=== PATIENT | female | born 1960 | race Caucasian/White ===

== ENCOUNTER → 2017-12-12 | Day surgery (SDC) | payer OTHER ==
[2017-11-11 14:14] VITALS: BMI 26.0
[~2017-12-12] VITALS: Ht 165.1 cm; Wt 71.8 kg
[~2017-12-12] MED LIST: ADVIN25/60 INH; BACL10TA PO; BUPRTAB51 PO; CALC500C70 PO; CHOL1CAP57 PO; CHOL1CAP95 PO; CYCL0.052 OP; DICY20TA10 PO; FENT100D10 TOP; FENT75DI2 TOP; FLUT0.15 NAE; FURO-85 PO; LACTATED RINGER'S 1000ML 1,000 ML IV SCH; LATA0.009 OPB; MORP30TA PO; ONDA4TAB46 PO; POLY335019 PO; PRED-301 PO; TPRSR/50 PO; VNTHFA/IN INH
[2017-12-12 09:20] VITALS: BP 155/91; PULSE 90; TEMP 36.8; O2SAT 91; Ht 165.1 cm; Wt 71.8 kg
--- NOTE | 2017-12-12 15:24 | Progress Note ---
Progress Note Date of Service Dec 12, 2017. Progress Note Patient was scheduled today for neck MRI under sedation. Patient was evaluated by anesthesia in [facility]. Of note, the patient has severe RA with deformity of her neck and spine. At rest the patient is severely kyphotic with her chin touching her chest. She is unable to lay flat or lift her head more than an inch or two off her chest. When she does lift her head slightly she reports difficulty breathing and a choking sensation in her neck. Due to how severe that patients spinal deformity is, the patient is extremely high risk for anesthesia. In the event of an airway emergency, we would probably be unable to intubate this patient and we would probably have significant difficulty ventilating the patient if she were to become over sedated. In addition, the patient cannot be positioned in a way that will allow her to enter the MRI scanner, even with sedation. Therefore, we had to cancel the patient's case. I spoke to Dr. Russo and shared this information with him. If the patient still requires MRI, she will likely need to go to [facility] where an MRI compatible anesthesia machine and possibly an open MRI are available. Brandy Guerrero MD, PhD Anesthesiology
== END | disposition home or self-care (01) ==
LOC: C.ACU 08:59
PROVIDERS: ATTEND Internal Medicine
DX: M50.30 Other cervical disc degeneration, unspecified cervical region (principal); Z53.09 Procedure and treatment not carried out because of other contraindication; M05.79 Rheumatoid arthritis with rheumatoid factor of multiple sites without organ or systems involvement

== ENCOUNTER 2020-10-07 04:40 | Inpatient (IN) ==
--- NOTE | 2020-10-07 07:56 | History & Physical Report ---
Date of Service October 07, 2020 Assessment & Plan (1) Abdominal pain: (2) Nausea: (3) Ileus: (4) Small bowel obstruction: Patient presents with abdominal pain, nausea, and CT findings concerning for Gastric and duodenal ileus versus small bowel obstruction at the duodenojejunal junction. ( No free air, free fluid, or fluid collection) CD from outside hospital received and images will be uploaded Patient declined NG tube at the outside hospital, reports she has had issues before with NG tube We will make sure her electrolytes are within normal limits, she was hypokalemic and hypomagnesemic at outside hospital We will repeat labs now and replete electrolytes as needed Currently patient does have bowel sounds, will closely monitor for BM N.p.o., IV fluids General surgery consult Will obtain UA (5) Chronic pain: (6) Rheumatoid arthritis: -Continue home prednisone, fentanyl patch and morphine prn for pain control - Discussed with pharmacy, fentanyl patch available is Alvagen, which is not the brand name, will try it and will closely monitor (7) COPD (chronic obstructive pulmonary disease): -Continue home inhalers, currently no exacerbation HTN - cont. metoprolol Anxiety home hydroxyzine as needed DVT ppx SCDs Code status : Discussed, patient is DNR/DNI Admission and Anticipated Discharge Date Admission Date: October 07, 2020 History of Present Illness Chief Complaint: Presents as a direct admission / transfer from [facility], with nausea, abdominal pain, likely ileus versus small bowel obstruction Primary Care Provider: Torrie Araya MD Patient is a 60-year-old female, with history of COPD, hypertension, IBS, cervical spondylosis, idiopathic scoliosis, chronic pain syndrome, rheumatoid arthritis, for which she uses fentanyl and morphine, generalized anxiety disorder, who presents as direct admission/transfer from [facility], with nausea, abdominal pain, and likely ileus versus small bowel obstruction per CT scan. Patient reports presenting to [facility] with abdominal pain and nausea, CT scan obtained in [facility] ED concerning for Gastric and duodenal ileus versus small bowel obstruction at the duodenojejunal junction. No free air, free fluid, or fluid collection. Labs remarkable for low potassium and low magnesium. Patient follows with [facility] physicians, and therefore wanted to be transferred to [facility] and be in care of the [facility] hospitalist. She reports that her symptoms started after she used fentanyl patch that was generic. She reports that it happened to her before and she also developed abdominal pain and nausea when her pharmacy did not have a brand name fentanyl. Patient is currently on 200 mcg every 48 hours and morphine 30 mg as needed every 4 hours. She says that she has been weaning off as she used higher fentanyl patch dose before. Her chronic pain medications are being managed by her educational director/PCP. Patient does have chronic back pain and neck pain. She reports that for cervical spondylosis she follows with Dr. Barnhart/neurology. And she follows w/Dr. Lawson from rheumatology for her RA. Reports that she usually sleeps in a reclining chair, and she has difficulty lying flat, which exacerbates her pain. She reports she had a normal bowel movement on , then she had diarrhea on Friday. She has now discomfort at her right lower abdomen and some discomfort at her right upper abdomen as well. She refused NG tube at [facility], she reports that in the past she had troubles with NG tube. She otherwise denies any fevers, chills, chest pain, shortness of breath. No known sick contacts. Allergies Allergy/AdvReac Type Severity Reaction Status Date / Time No Known Allergies Allergy Unknown Verified 09/14/20 11:09 Home Medications Medication Instructions Recorded Confirmed Type albuterol sulfate [Ventolin HFA] 2 puff INHALATION Q6 PRN 06/11/18 09/14/20 History baclofen 10 mg PO TID PRN 06/11/18 09/14/20 History calcium carbonate-vitamin D3 1 tab PO QAM 06/11/18 09/14/20 History [Os-Porfirio 500 + D3] cholecalciferol (vitamin D3) 50,000 unit PO WK 06/11/18 09/14/20 History dicyclomine 20 mg PO QID PRN 06/11/18 09/14/20 History fentanyl 2 patch TRANSDERMAL Q48H 06/11/18 09/14/20 History fluticasone propion-salmeterol 1 inh INHALATION BID 06/11/18 09/14/20 History [Advair Diskus] fluticasone propionate [Flonase 1 - 2 spray INTRANASAL DAILY PRN 06/11/18 09/14/20 History Allergy Relief] furosemide 20 mg PO DAILY PRN 06/11/18 09/14/20 History latanoprost 1 drp OPHTHALMIC (EYE) HS 06/11/18 09/14/20 History metoprolol succinate 25 mg PO HS 06/11/18 09/14/20 History metoprolol succinate 50 mg PO QAM 06/11/18 09/14/20 History morphine 30 mg PO Q3H PRN 06/11/18 09/14/20 History ondansetron 4 mg PO Q6 PRN 06/11/18 09/14/20 History polyethylene glycol 3350 [Miralax] 1 dose PO QAM PRN 06/11/18 09/14/20 History prednisone 10 mg PO HS 06/11/18 09/14/20 History tiotropium bromide [Spiriva with 1 cap INHALATION QAM 06/11/18 09/14/20 History HandiHaler] cyanocobalamin (vitamin B-12) 1,000 mcg PO QAM 09/14/20 09/14/20 History [Vitamin B-12] hydroxyzine HCl 25 mg PO Q6H PRN 10/07/20 10/07/20 History Past Med/Surg History Medical History Anxiety Chronic neck and back pain Chronic obstructive pulmonary disease Current every day smoker Glaucoma bilt eyes History of anesthesia reaction Difficulty waking up. 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 and forth Surgical History History of ankle surgery L ankle triple fusion (pins in place) d/t RA History of bilateral tubal ligation History of cholecystectomy History of colonoscopy History of dilatation and curettage History of esophagogastroduodenoscopy (EGD) History of partial hysterectomy History of total left knee replacement (TKR) History of total right knee replacement (TKR) Hx of toe surgery "all ten toes were straightened" Status post cystoscopy with ureteral stent placement Status post wrist surgery bilt fusion (R wrist has plate in place) d/t RA Family History Father Family hx of colon cancer Family history of reaction to anesthesia slow to wake Social History Smoking Status: Current every day smoker Cigarettes Per Day: vaps daily; Second Hand Exposure: No; Hx Alcohol Use: No Hx Substance Use: No Preferred Language: Indian Communication Ability: Effective Orthopedic Physician Required: No Beliefs That Will Affect Care: Orthodoxy Orthodoxy Beliefs: Religion Current Living Situation: Alone Current Living Situation Comment: Lives alone; has caregiver everyday Feels Safe at Home: Yes Assistive Devices: Cane and Walker Review of Systems Review of Systems: All systems reviewed & are unremarkable except as noted in HPI & below Constitutional: no fever and no chills Eyes: no problem reported Ear, Nose, Mouth, Throat: no problem reported Respiratory: no cough and no dyspnea Cardiovascular: no chest pain, no palpitations and no edema Gastrointestinal: + abdominal pain (R lower and upper quadrants) and + nausea; no vomiting Genitourinary: no problem reported Musculoskeletal: + back pain (chronic) and + neck pain (chronic) Integumentary: no problem reported Neurologic: no problem reported Psychiatric: no problem reported Endocrine: no problem reported Hematologic / Lymphatic: no problem reported Allergy / Immunological: no problem reported Physical Exam Constitutional: WD/WN, vitals as above Eyes: PERRL, conjunctivae normal, anicteric sclerae ENMT: external ear and nose normal, oropharynx normal Neck: normal visual inspection Respiratory: normal respiratory effort, lungs clear to auscultation Auscultation: no crackles, no rales and no rhonchi Cardiovascular: RRR, no murmur, no edema Chest (Breasts): Chest: normal inspection of chest Gastrointestinal (Abdomen): Inspection/Auscultation: abdomen normal to inspection and normal bowel sounds; abdomen not distended and no abdominal edema Percussion/Palpation: + abdomen tender (at R upper and lower quadrants) and abdomen soft Musculoskeletal: Head/Neck/Chest: normocephalic and head atraumatic Spine: + scoliosis + Hands deformity from RA bilaterally + moves extremities spontaneously Skin: no rashes, warm and dry Neurologic: PERRL, EOMI, accommodation nl, no face palsy, no dysarthria moves all extremities Psychiatric: A+Ox3, euthymic affect Genitourinary: no CVA tenderness Lymphatic: no lymphedema Results & Data Results & Data ([facility]) Vital Signs (Past 12 Hours) Vital Signs Temp Pulse Resp BP Pulse Ox 10/07/20 07:33 36.8 C 81 18 108/70 97 Laboratory Results Per labs from [facility], sodium 140, potassium 3.0, chloride 107, bicarb 24, anion gap 12, alk phos 58, AST 10, ALT 10, lactic acid 1.3, lipase 150 Magnesium 1.8 Troponin negative White blood cell count 8.4, hemoglobin 13.3, platelets 290 EKG Normal sinus rhythm, ventricular rate [address] abdomen pelvis with IV contrast ([facility]) Findings No free air. No solid liver mass. Cholecystectomy. No clinically significant very ductal dilatation. No splenomegaly or suspicious splenic lesions. No solid or cystic pancreatic mass. No pancreatic ductal dilation. No acute inflammatory changes. Adrenal glands without acute pathology. No solid renal mass. No hydronephrosis. No significant stranding. Bladder without acute pathology. Gastric and duodenal distention with fluid levels, with the duodenum measuring up to 4.5 cm in diameter. Jejunum and remainder of small bowel normal in caliber. No evidence of acute appendicitis. No adenopathy. As erythematous abdominal aortic calcifications without aneurysm. No suspicious pelvic masses. Hysterectomy. No acute soft tissue pathology. No acute osseous pathology. Degenerative changes. Impression Gastric and duodenal ileus versus small bowel obstruction at the duodenojejunal junction. No free air, free fluid, or fluid collection. Code Status & VTE Plan VTE Prophylaxis Plan VTE Prophylaxis will be ordered: Yes
[2020-10-07] MEDS ORDERED: hydrOXYzine HCl 25 MG TAB PO PRN (07:59)
[2020-10-07] MEDS ORDERED: DICYCLOMINE HCL 20 MG TAB PO PRN (07:59)
[2020-10-07] MEDS ORDERED: ONDANSETRON INJ 2 MG/ML 2 ML VIAL IV PRN (07:59)
[2020-10-07] MEDS ORDERED: POLYETHYLENE (MIRALAX) 17 GM PACK PO PRN (07:59)
[2020-10-07] MEDS ORDERED: ALBUTEROL HFA 8 GM INHALER INH PRN (07:59)
[2020-10-07] MEDS ORDERED: FLUTICASONE PROPIONATE NA SPR 16 GM BTL PRN (07:59)
[2020-10-07 08:22] LABS: Alanine Aminotransferase 10 U/L (12-78); Albumin Level 2.9 gm/dl (3.4-5.0); Aspartate Aminotransferase 9 U/L (15-37); BUN Creatinine Ratio 8.1 (10-20); Blood Urea Nitrogen 4 mg/dl (7-18); Calcium 8.3 mg/dl (8.5-10.1); Carbon Dioxide 21 mmol/L (21-32); Chloride 115 mmol/L (98-107); Est GFR (Non-African American) 111.3; Glucose 88 mg/dl (70-99); Magnesium 1.8 mg/dl (1.8-2.4); Potassium 3.9 mmol/L (3.5-5.1); Sodium 142 mmol/L (136-145)
[2020-10-07 08:25] LABS: Albumin Globulin Ratio 0.9 (0.9-2); Alkaline Phosphatase 51 U/L (45-117); Bilirubin,Total 0.9 mg/dl (0.2-1); Globulin 3.2 gm/dl (2.5-4.0); Total Protein 6.1 gm/dl (6.4-8.2)
[2020-10-07 08:38] LABS: INR 1.1 (0.9-1.1); Prothrombin Time 11.1 Seconds (9.0-12.0)
[2020-10-07 08:41] LABS: Basophils # (auto) 0.01 K/uL (0-0.2); Basophils % (auto) 0.1 %; Eosinophils # (auto) 0.01 K/uL (0-0.5); Eosinophils % (auto) 0.1 %; Hematocrit (blood only) 35.9 % (37-47); Hemoglobin 11.6 g/dL (12.0-16.0); Immature Granulocytes # (auto) 0.01 K/uL (0.00-0.02); Immature Granulocytes % (auto) 0.1 %; Lymphocytes % (auto) 21.7 %; Mean Corpuscular Hemoglobin 30.1 pg (25-34); Mean Corpuscular Hgb Conc 32.3 g/dL (32-36); Mean Platelet Volume 9.2 fL (7.4-10.4); Monocytes # (auto) 0.19 K/uL (0.11-0.59); Monocytes % (auto) 2.4 %; Neutrophils # (auto) 5.92 K/uL (1.4-6.5); Neutrophils % (auto) 75.6 %; Platelet Count 267 K/uL (130-400); RDW Coefficient of Variation 13.1 % (11.5-14.5); RDW Standard Deviation 44.8 fL (36.4-46.3); Red Blood Count 3.86 M/uL (4.2-5.4); White Blood Count 7.84 K/uL (4.8-10.8)
[2020-10-07] MEDS: fentaNYL 100 MCG/HR TDSY TD SCH ×2 (08:51→09:04)
[2020-10-07] MEDS: D5W AND NSS 1,000 ML IV SCH ×2 (08:51→17:57)
[2020-10-07] MEDS: CHECK fentaNYL PATCH PLACEMENT SCH ×3 (09:07→16:22)
[2020-10-07] MEDS: HYDROmorphone INJ 0.5 MG/0.5 ML SYR IV PRN (09:12)
[2020-10-07] MEDS: MoRPHine SULFATE IR 15 MG TAB (IMMEDIATE RELEASE) PO PRN ×4 (09:22→21:54)
[2020-10-07] MEDS ORDERED: MAGNESIUM SULFATE / D5W 1 GM/100 ML BAG IV ONE (09:30)
[2020-10-07 10:10] LABS: Appearance Urine Clear (Clear); Bilirubin Urine Negative (Negative); Blood Urine Negative (Negative); Color Urine Yellow; Glucose Urine UA Negative (Negative); Ketones Urine Negative (Negative); Leukocyte Esterase Urine Negative (Negative); Nitrite Urine Negative (Negative); Protein Urine Negative (Negative); Specific Gravity Urine 1.035 (1.000-1.030); Urobilinogen Urine Negative (Negative)
--- NOTE | 2020-10-07 10:57 | Surgery Consultation ---
Date of Consultation October 07, 2020 Assessment & Plan (1) Ileus: 60-year-old female with resolving nausea and abdominal bloating and distention. She believes this is related to her fentanyl patch, however there is concern for possible SMA syndrome on her imaging study. As this would not be an acute problem and she may very well just have an ileus or gastritis, we will advance her to clear liquids. If she tolerates those she may advance to regular diet and be discharged home. We would recommend outpatient evaluation by gastroenterology or a tertiary center for surgical care regarding her potential SMA syndrome. Surgery will follow while in house. (2) Abdominal pain: (3) Nausea: History of Present Illness Attending Physician: Laz Acosta MD History of Present Illness 60-year-old female transferred from [place] ER over concerns for gastroduodenal ileus versus obstruction. She states she had a similar episode in the past when she used generic fentanyl patch. Yesterday at the pharmacy they did not have her normal fentanyl patch, and after placing it she began having dry heaves along with abdominal bloating and discomfort. She remove the patch and went to the [place] emergency department where they did a CT scan over concern for ileus versus obstruction near the duodenal jejunal junction. As she gets her care through [facility] she preferred to come to [facility] where there were [facility] hospitalist available. Since arrival she is feeling much better, passing gas, not having abdominal pain, distention, or nausea or d ry heaves. History of laparoscopic cholecystectomy and hysterectomy in the past. Allergies Allergy/AdvReac Type Severity Reaction Status Date / Time No Known Allergies Allergy Unknown Verified 09/14/20 11:09 Home Medications Medication Instructions Recorded Confirmed Type albuterol sulfate [Ventolin HFA] 2 puff INHALATION Q6 PRN 06/11/18 09/14/20 History baclofen 10 mg PO TID PRN 06/11/18 09/14/20 History calcium carbonate-vitamin D3 1 tab PO QAM 06/11/18 09/14/20 History [Os-Porfirio 500 + D3] cholecalciferol (vitamin D3) 50,000 unit PO WK 06/11/18 09/14/20 History dicyclomine 20 mg PO QID PRN 06/11/18 09/14/20 History fentanyl 2 patch TRANSDERMAL Q48H 06/11/18 09/14/20 History fluticasone propion-salmeterol 1 inh INHALATION BID 06/11/18 09/14/20 History [Advair Diskus] fluticasone propionate [Flonase 1 - 2 spray INTRANASAL DAILY PRN 06/11/18 09/14/20 History Allergy Relief] furosemide 20 mg PO DAILY PRN 06/11/18 09/14/20 History latanoprost 1 drp OPHTHALMIC (EYE) HS 06/11/18 09/14/20 History metoprolol succinate 25 mg PO HS 06/11/18 09/14/20 History metoprolol succinate 50 mg PO QAM 06/11/18 09/14/20 History morphine 30 mg PO Q3H PRN 06/11/18 09/14/20 History ondansetron 4 mg PO Q6 PRN 06/11/18 09/14/20 History polyethylene glycol 3350 [Miralax] 1 dose PO QAM PRN 06/11/18 09/14/20 History prednisone 10 mg PO HS 06/11/18 09/14/20 History tiotropium bromide [Spiriva with 1 cap INHALATION QAM 06/11/18 09/14/20 History HandiHaler] cyanocobalamin (vitamin B-12) 1,000 mcg PO QAM 09/14/20 09/14/20 History [Vitamin B-12] hydroxyzine HCl 25 mg PO Q6H PRN 10/07/20 10/07/20 History Patient History Medical History (Updated 10/07/20 @ 08:33 by Alvin Brothers MD) Anxiety Chronic neck and back pain Chronic obstructive pulmonary disease Chronic pain COPD (chronic obstructive pulmonary disease) Current every day smoker Glaucoma bilt eyes History of anesthesia reaction Difficulty waking up. 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 forth Surgical History History of ankle surgery L ankle triple fusion (pins in place) d/t RA History of bilateral tubal ligation History of cholecystectomy History of colonoscopy History of dilatation and curettage History of esophagogastroduodenoscopy (EGD) History of partial hysterectomy History of total left knee replacement (TKR) History of total right knee replacement (TKR) Hx of toe surgery "all ten toes were straightened" Status post cystoscopy with ureteral stent placement Status post wrist surgery bilt fusion (R wrist has plate in place) d/t RA Family History Father Family hx of colon cancer Family history of reaction to anesthesia slow to wake Social History Smoking Status: Current every day smoker Cigarettes Per Day: vaps daily; Second Hand Exposure: No; Hx Alcohol Use: No Hx Substance Use: No Preferred Language: Romanian Communication Ability: Effective Photographic Artist Required: No Beliefs That Will Affect Care: Taoism Taoism Beliefs: Holiness Current Living Situation: Alone Current Living Situation Comment: Lives alone; has caregiver everyday Feels Safe at Home: Yes Assistive Devices: Cane and Walker Review of Systems Review of Systems: All systems reviewed & are unremarkable except as noted in HPI & below Physical Exam Constitutional: WD/WN, vitals as above Respiratory: normal respiratory effort, lungs clear to auscultation Cardiovascular: RRR, no murmur, no edema Gastrointestinal (Abdomen): normal bowel sounds, soft, nontender, no hepatosplenomegaly Inspection/Auscultation: abdomen not distended Results & Data ([facility]) Vital Signs (Past 12 Hours) Vital Signs Temp Pulse Resp BP Pulse Ox 10/07/20 07:33 36.8 C 81 18 108/70 97 Diagnostic Findings I personally reviewed the CT scan along with our radiologist Dr. Beltran. After review there is duodenal distention and mild gastric distention. There appears to be a possible partial obstruction in the third portion of the duodenum near the takeoff of the superior mesenteric artery, which could indicate SMA syndrome. PG Care Time/CCT Total # of Minutes Spent Total Time Spent with Patient: Total time spent is greater than 50% in coordination of care (as documented) at patient's floor/unit and/or counseling patient: Coding Level of Care Code 44005 Initial Inpt Care Lvl 2 Diagnoses Ileus K56.7 Abdominal pain R10.9 Nausea R11.0
[2020-10-07] MEDS: METOPROLOL SUCC 50MG EXT REL TAB PO SCH (12:52)
[2020-10-07] MEDS: FLUTICASONE/VILANTEROL 100/25MCG 14 PUFFS/INHALER INH SCH (12:53)
[2020-10-07] MEDS: UMECLIDINIUM BROMIDE 62.5MCG/BLISTER 7 PUFFS/INHALER INH SCH (12:53)
[2020-10-07] MEDS: predniSONE 10 MG TABLET PO SCH (21:54)
[2020-10-07] MEDS: LATANOPROST 0.005% OP SOLN 2.5 ML BTL OP SCH (21:55)
[2020-10-07] MEDS: METOPROLOL SUCC 25MG EXT REL TAB PO SCH (21:58)
[2020-10-08] MEDS: CHECK fentaNYL PATCH PLACEMENT SCH ×8 (00:49→22:58)
[2020-10-08] MEDS: D5W AND NSS 1,000 ML IV SCH (01:30)
[2020-10-08] MEDS: HYDROmorphone INJ 0.5 MG/0.5 ML SYR IV PRN ×4 (03:18→22:04)
[2020-10-08 05:55] LABS: Hematocrit (blood only) 33.7 % (37-47); Hemoglobin 10.6 g/dL (12.0-16.0); Mean Corpuscular Hemoglobin 29.9 pg (25-34); Mean Corpuscular Hgb Conc 31.5 g/dL (32-36); Mean Corpuscular Volume 95.2 fL (80-100); Mean Platelet Volume 9.3 fL (7.4-10.4); Platelet Count 229 K/uL (130-400); RDW Coefficient of Variation 13.3 % (11.5-14.5); RDW Standard Deviation 46.7 fL (36.4-46.3); Red Blood Count 3.54 M/uL (4.2-5.4); White Blood Count 3.91 K/uL (4.8-10.8)
[2020-10-08 06:29] LABS: BUN Creatinine Ratio 3.6 (10-20); Calcium 7.9 mg/dl (8.5-10.1); Creatinine Clr Calc Pharmacy 136.8 ml/min; Est GFR (Non-African American) 111.3; Magnesium 2.3 mg/dl (1.8-2.4); Phosphorus 2.9 mg/dl (2.5-4.9); Potassium 4.5 mmol/L (3.5-5.1)
[2020-10-08] MEDS: MoRPHine SULFATE IR 15 MG TAB (IMMEDIATE RELEASE) PO PRN ×4 (07:20→21:13)
--- NOTE | 2020-10-08 07:33 | Hospitalist Progress Note ---
Date of Service October 08, 2020 Assessment & Plan (1) Abdominal pain: (2) Nausea: (3) Ileus: (4) Small bowel obstruction: Patient presents with abdominal pain, nausea, and CT findings concerning for Gastric and duodenal ileus versus small bowel obstruction at the duodenojejunal junction. 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, and recommend GI follow-up as outpatient Advanced patient to clear liquid diet, which he tolerated, will advance the diet to low fiber/low residue diet She is clinically improved, and denies nausea, she is passing flatus however no BM yet (5) Chronic pain: (6) Rheumatoid arthritis: -Continue home prednisone, fentanyl patch and morphine prn for pain control - Discussed with pharmacy, fentanyl patch available is Alvagen, which is not the brand name, will try it and will closely monitor -Patient seems to be tolerating this fentanyl patch (7) COPD (chronic obstructive pulmonary disease): -Continue home inhalers, currently no exacerbation HTN - cont. 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 We will try and advance her diet to low fiber/low residue, will further discuss with surgery team Review of Systems Review of Systems: All systems reviewed & are unremarkable except as noted in HPI & below Constitutional: no fever and no chills Respiratory: no cough and no dyspnea Cardiovascular: no chest pain and no palpitations Gastrointestinal: + abdominal pain (improved); no nausea and no vomiting Musculoskeletal: + back pain (chronic) and + neck pain (chronic) Physical Exam Constitutional: WD/WN, vitals as above Eyes: PERRL, conjunctivae normal, anicteric sclerae ENMT: external ear and nose normal, oropharynx normal Neck: normal visual inspection Respiratory: normal respiratory effort, lungs clear to auscultation Auscultation: no crackles, no rales and no rhonchi Cardiovascular: RRR, no murmur, no edema Chest (Breasts): Chest: normal inspection of chest Gastrointestinal (Abdomen): Inspection/Auscultation: abdomen normal to inspection and normal bowel sounds; abdomen not distended and no abdominal edema Percussion/Palpation: + abdomen tender (at R upper and lower quadrants - improved) and abdomen soft Musculoskeletal: Head/Neck/Chest: normocephalic and head atraumatic Spine: + scoliosis Skin: no rashes, warm and dry Neurologic: PERRL, EOMI, accommodation nl, no face palsy, no dysarthria moves all extremities Psychiatric: A+Ox3, euthymic affect Genitourinary: no CVA tenderness Lymphatic: no lymphedema Results & Data Results & Data ([facility]) Vital Signs (Past 12 Hours) Vital Signs Temp Pulse Resp BP Pulse Ox 10/08/20 07:21 36.5 C 70 16 112/76 97 10/07/20 21:51 36.5 C 67 14 95/57 L 97 Laboratory Results 10/08/20 10/08/20 10/07/20 Range/Units 05:22 05:22 08:50 WBC 3.91 L (4.8-10.8) K/uL RBC 3.54 L (4.2-5.4) M/uL Hgb 10.6 L (12.0-16.0) g/dL Hct 33.7 L (37-47) % MCV 95.2 (80-100) fL MCH 29.9 (25-34) pg MCHC 31.5 L (32-36) g/dL RDW Std Deviation 46.7 H (36.4-46.3) fL RDW Coeff of Emma 13.3 (11.5-14.5) % Plt Count 229 (130-400) K/uL MPV 9.3 (7.4-10.4) fL Immature Gran % (Auto) % Neut % (Auto) % Lymph % (Auto) % [place] % (Auto) % Eos % (Auto) % Baso % (Auto) % Neut # (Auto) (1.4-6.5) K/uL Lymph # (Auto) (1.2-3.4) K/uL [place] # (Auto) (0.11-0.59) K/uL Eos # (Auto) (0-0.5) K/uL Baso # (Auto) (0-0.2) K/uL Immature Gran # (Auto) (0.00-0.02) K/uL PT (9.0-12.0) Seconds INR (0.9-1.1) APTT (21.0-31.0) Seconds PTT Ratio Sodium 146 H (136-145) mmol/L Potassium 4.5 D (3.5-5.1) mmol/L Chloride 118 H (98-107) mmol/L Carbon Dioxide 24 (21-32) mmol/L Anion Gap 4.0 (3-11) BUN 2 L (7-18) mg/dl Creatinine 0.44 L (0.6-1.2) mg/dl Est Cr Clr Drug Dosing 136.8 Est GFR ( Amer) 129.0 Est GFR (Non-Af Amer) 111.3 BUN/Creatinine Ratio 3.6 L (10-20) Glucose 147 H (70-99) mg/dl Calcium 7.9 L (8.5-10.1) mg/dl Phosphorus 2.9 (2.5-4.9) mg/dl Magnesium 2.3 (1.8-2.4) mg/dl Total Bilirubin (0.2-1) mg/dl AST (15-37) U/L ALT (12-78) U/L Alkaline Phosphatase (45-117) U/L Total Protein (6.4-8.2) gm/dl Albumin (3.4-5.0) gm/dl Globulin (2.5-4.0) gm/dl Albumin/Globulin Ratio (0.9-2) Urine Color Yellow Urine Appearance Clear (Clear) Urine pH 6.0 (4.5-7.5) Ur Specific [place] 1.035 H (1.000-1.030) Urine Protein Negative (Negative) Urine Glucose (UA) Negative (Negative) Urine Ketones Negative (Negative) Urine Blood Negative (Negative) Urine Nitrite Negative (Negative) Urine Bilirubin Negative (Negative) Urine Urobilinogen Negative (Negative) Ur Leukocyte Esterase Negative (Negative) 10/07/20 10/07/20 10/07/20 Range/Units 07:53 07:53 07:53 WBC (4.8-10.8) K/uL RBC (4.2-5.4) M/uL Hgb (12.0-16.0) g/dL Hct (37-47) % MCV (80-100) fL MCH (25-34) pg MCHC (32-36) g/dL RDW Std Deviation (36.4-46.3) fL RDW Coeff of Emma (11.5-14.5) % Plt Count (130-400) K/uL MPV (7.4-10.4) fL Immature Gran % (Auto) % Neut % (Auto) % Lymph % (Auto) % [place] % (Auto) % Eos % (Auto) % Baso % (Auto) % Neut # (Auto) (1.4-6.5) K/uL Lymph # (Auto) (1.2-3.4) K/uL [place] # (Auto) (0.11-0.59) K/uL Eos # (Auto) (0-0.5) K/uL Baso # (Auto) (0-0.2) K/uL Immature Gran # (Auto) (0.00-0.02) K/uL PT 11.1 (9.0-12.0) Seconds INR 1.1 (0.9-1.1) APTT 25.0 (21.0-31.0) Seconds PTT Ratio 1.0 Sodium 142 (136-145) mmol/L Potassium 3.9 (3.5-5.1) mmol/L Chloride 115 H (98-107) mmol/L Carbon Dioxide 21 (21-32) mmol/L Anion Gap 6.0 (3-11) BUN 4 L (7-18) mg/dl Creatinine 0.44 L (0.6-1.2) mg/dl Est Cr Clr Drug Dosing Not Reportable Est GFR ( Amer) 129.0 Est GFR (Non-Af Amer) 111.3 BUN/Creatinine Ratio 8.1 L (10-20) Glucose 88 (70-99) mg/dl Calcium 8.3 L (8.5-10.1) mg/dl Phosphorus 3.1 (2.5-4.9) mg/dl Magnesium 1.8 (1.8-2.4) mg/dl Total Bilirubin 0.9 (0.2-1) mg/dl AST 9 L (15-37) U/L ALT 10 L (12-78) U/L Alkaline Phosphatase 51 (45-117) U/L Total Protein 6.1 L (6.4-8.2) gm/dl Albumin 2.9 L (3.4-5.0) gm/dl Globulin 3.2 (2.5-4.0) gm/dl Albumin/Globulin Ratio 0.9 (0.9-2) Urine Color Urine Appearance (Clear) Urine pH (4.5-7.5) Ur Specific [place] (1.000-1.030) Urine Protein (Negative) Urine Glucose (UA) (Negative) Urine Ketones (Negative) Urine Blood (Negative) Urine Nitrite (Negative) Urine Bilirubin (Negative) Urine Urobilinogen (Negative) Ur Leukocyte Esterase (Negative) 10/07/20 Range/Units 07:53 WBC 7.84 (4.8-10.8) K/uL RBC 3.86 L (4.2-5.4) M/uL Hgb 11.6 L (12.0-16.0) g/dL Hct 35.9 L (37-47) % MCV 93.0 (80-100) fL MCH 30.1 (25-34) pg MCHC 32.3 (32-36) g/dL RDW Std Deviation 44.8 (36.4-46.3) fL RDW Coeff of Emma 13.1 (11.5-14.5) % Plt Count 267 (130-400) K/uL MPV 9.2 (7.4-10.4) fL Immature Gran % (Auto) 0.1 % Neut % (Auto) 75.6 % Lymph % (Auto) 21.7 % [place] % (Auto) 2.4 % Eos % (Auto) 0.1 % Baso % (Auto) 0.1 % Neut # (Auto) 5.92 (1.4-6.5) K/uL Lymph # (Auto) 1.70 (1.2-3.4) K/uL [place] # (Auto) 0.19 (0.11-0.59) K/uL Eos # (Auto) 0.01 (0-0.5) K/uL Baso # (Auto) 0.01 (0-0.2) K/uL Immature Gran # (Auto) 0.01 (0.00-0.02) K/uL PT (9.0-12.0) Seconds INR (0.9-1.1) APTT (21.0-31.0) Seconds PTT Ratio Sodium (136-145) mmol/L Potassium (3.5-5.1) mmol/L Chloride (98-107) mmol/L Carbon Dioxide (21-32) mmol/L Anion Gap (3-11) BUN (7-18) mg/dl Creatinine (0.6-1.2) mg/dl Est Cr Clr Drug Dosing Est GFR ( Amer) Est GFR (Non-Af Amer) BUN/Creatinine Ratio (10-20) Glucose (70-99) mg/dl Calcium (8.5-10.1) mg/dl Phosphorus (2.5-4.9) mg/dl Magnesium (1.8-2.4) mg/dl Total Bilirubin (0.2-1) mg/dl AST (15-37) U/L ALT (12-78) U/L Alkaline Phosphatase (45-117) U/L Total Protein (6.4-8.2) gm/dl Albumin (3.4-5.0) gm/dl Globulin (2.5-4.0) gm/dl Albumin/Globulin Ratio (0.9-2) Urine Color Urine Appearance (Clear) Urine pH (4.5-7.5) Ur Specific [place] (1.000-1.030) Urine Protein (Negative) Urine Glucose (UA) (Negative) Urine Ketones (Negative) Urine Blood (Negative) Urine Nitrite (Negative) Urine Bilirubin (Negative) Urine Urobilinogen (Negative) Ur Leukocyte Esterase (Negative) Medications Administered Current Inpatient Medications Albuterol (Albuterol Hfa 8 Gm Inhaler) 2 puffs INH Q6 PRN PRN Reason: Shortness Of Breath Stop: 11/06/20 07:58 Dicyclomine HCl (Dicyclomine Hcl 20 Mg Tab) 20 mg PO QID PRN PRN Reason: Abdominal Pain Stop: 11/06/20 07:58 Fentanyl (Fentanyl 100 Mcg/Hr Tdsy) 100 mcg TD Q48H [facility] Stop: 10/21/20 08:29 Last Admin: 10/07/20 08:51 Dose: 100 mcg Documented by: Fentanyl (Fentanyl 100 Mcg/Hr Tdsy) 100 mcg TD Q48H [facility] Stop: 10/21/20 08:29 Last Admin: 10/07/20 09:04 Dose: 100 mcg Documented by: Fluticasone Propionate (Fluticasone Propionate Na Spr 16 Gm Btl) 1 sprays NA DAILY PRN PRN Reason: Allergy Symptoms Stop: 11/06/20 07:58 Fluticasone/Vilanterol (Fluticasone/Vilanterol 100/25mcg 14 Puffs/Inhaler) 1 puffs INH DAILY [facility] Stop: 11/06/20 08:59 Last Admin: 10/07/20 12:53 Dose: 1 puffs Documented by: Hydromorphone HCl (Hydromorphone Inj 0.5 Mg/0.5 Ml Syr) 0.5 mg IV Q3H PRN PRN Reason: Pain Stop: 10/21/20 07:58 Last Admin: 10/08/20 03:18 Dose: 0.5 mg Documented by: Hydroxyzine HCl (Hydroxyzine Hcl 25 Mg Tab) 25 mg PO Q6H PRN PRN Reason: Anxiety Stop: 11/06/20 07:58 Dextrose/Sodium Chloride (D5w And Nss) 1,000 mls @ 125 mls/hr IV .Q8H [facility] Stop: 11/06/20 07:58 Last Admin: 10/08/20 01:30 Dose: 125 mls/hr Documented by: Latanoprost (Latanoprost 0.005% Op Soln 2.5 Ml Btl) 1 drops OP HS [facility] Stop: 11/06/20 20:59 Last Admin: 10/07/20 21:55 Dose: 1 drops Documented by: Metoprolol Succinate (Metoprolol Succ 50mg Ext Rel Tab) 50 mg PO QAM [facility] Stop: 11/06/20 08:59 Last Admin: 10/07/20 12:52 Dose: 50 mg Documented by: Metoprolol Succinate (Metoprolol Succ 25mg Ext Rel Tab) 25 mg PO HS [facility] Stop: 11/06/20 20:59 Last Admin: 10/07/20 21:58 Dose: Not Given Documented by: Nicanoraneous (Check Fentanyl Patch Placement) 1 ea N/A QS [facility] Stop: 11/06/20 07:59 Last Admin: 10/08/20 00:49 Dose: 1 ea Documented by: Nicanoraneous (Check Fentanyl Patch Placement) 1 ea N/A QS [facility] Stop: 11/06/20 15:59 Last Admin: 10/08/20 00:49 Dose: 1 ea Documented by: Jammie (Fentanyl Patch Remove & Waste) 1 ea N/A Q48H [facility] Stop: 11/06/20 08:28 Last Admin: 10/07/20 08:55 Dose: 1 ea Documented by: Jammie (Fentanyl Patch Remove & Waste) 1 ea N/A Q48H [facility] Stop: 11/06/20 08:28 Last Admin: 10/07/20 08:56 Dose: 1 ea Documented by: Morphine Sulfate (Morphine Sulfate Ir 15 Mg Tab (Immediate Release)) 30 mg PO Q3H PRN PRN Reason: Pain Stop: 10/21/20 08:16 Last Admin: 10/08/20 07:20 Dose: 30 mg Documented by: Ondansetron HCl (Ondansetron Inj 2 Mg/Ml 2 Ml Vial) 4 mg IV Q6H PRN PRN Reason: Nausea Stop: 11/06/20 07:58 Last Admin: 10/07/20 09:26 Dose: 4 mg Documented by: Polyethylene Glycol (Polyethylene (Miralax) 17 Gm Pack) 17 gm PO QAM PRN PRN Reason: Constipation Stop: 11/06/20 07:58 Prednisone (Prednisone 10 Mg Tablet) 10 mg PO [facility] Stop: 11/06/20 20:59 Last Admin: 10/07/20 21:54 Dose: 10 mg Documented by: Umeclidinium [place] (Umeclidinium [place] 62.5mcg/Blister 7 Puffs/Inhaler) 1 puffs INH QAM [facility] Stop: 11/06/20 08:59 Last Admin: 10/07/20 12:53 Dose: 1 puffs Documented by:
[2020-10-08] MEDS: D5W AND 1/2NSS 1,000 ML IV SCH ×2 (08:05→19:21)
[2020-10-08] MEDS: UMECLIDINIUM BROMIDE 62.5MCG/BLISTER 7 PUFFS/INHALER INH SCH (08:08)
[2020-10-08] MEDS: FLUTICASONE/VILANTEROL 100/25MCG 14 PUFFS/INHALER INH SCH (08:08)
[2020-10-08] MEDS: METOPROLOL SUCC 50MG EXT REL TAB PO SCH (08:09)
--- NOTE | 2020-10-08 10:54 | Surgery Progress Note ---
Date of Service October 08, 2020 Assessment & Plan (1) Nausea: Nausea has resolved. (2) Abdominal pain: Abdominal pain has resolved. (3) Ileus: 10/08/2020 Ekaterina continues to feel well and is tolerating a regular diet. She continues to pass flatus, but has not moved her bowels since admission. No indication for surgical intervention. From surgical perspective she is ok for discharge to home when deemed stable by admitting services. Recommend outpatient follow-up with GI for possible SMA syndrome. 10/07/2020 60-year-old female with resolving nausea and abdominal bloating and distention. She believes this is related to her fentanyl patch, however there is concern for possible SMA syndrome on her imaging study. As this would not be an acute problem and she may very well just have an ileus or gastritis, we will advance her to clear liquids. If she tolerates those she may advance to regular diet and be discharged home. We would recommend outpatient evaluation by gastroenterology or a tertiary center for surgical care regarding her potential SMA syndrome. Surgery will follow while in house. Admission and Anticipated Discharge Date Admission Date: October 07, 2020 Supervising Physician Co-Signing Physician Notes Patient seen and examined, agree with above. 60-year-old female admitted with possible proximal SBO versus ileus. Feeling much better, tolerating regular diet today. Passing gas. The symptoms she had prior to arrival are gone. On exam afebrile stable vitals, abdomen soft, nontender, nondistended. On further questioning she does endorse history of weight loss and early satiety with significant reflux. This may be consistent with SMA syndrome. Recommend outpatient evaluation by GI and surgical evaluation at a tertiary care center where they treat this more regularly. No need for urgent intervention, okay to discharge from surgery standpoint once tolerating regular diet. Surgery will sign off. Call with questions or concerns. Subjective Ekaterina is resting in chair at bedside. She notes that she is feeling well and denies any abdominal pain. She is tolerating a regular diet without issue. She is passing flatus, but denies bowel movement. Review of Systems Review of Systems: All systems reviewed & are unremarkable except as noted in HPI & below Physical Exam Constitutional: WD/WN, vitals as above Respiratory: normal respiratory effort, lungs clear to auscultation Cardiovascular: RRR, no murmur, no edema Gastrointestinal (Abdomen): normal bowel sounds, soft, nontender, no hepatosplenomegaly Inspection/Auscultation: abdomen not distended Results & Data ([facility]) Vital Signs (Past 12 Hours) Vital Signs Temp Pulse Resp BP Pulse Ox 10/08/20 07:21 36.5 C 70 16 112/76 97 PG Care Time/CCT Total # of Minutes Spent Total Time Spent with Patient: Total time spent is greater than 50% in coordination of care (as documented) at patient's floor/unit and/or counseling patient: Coding Level of Care Code 21370 Subseq Hosp Care Lvl 1 Diagnoses Nausea R11.0 Abdominal pain R10.9 Ileus K56.7
[2020-10-08] MEDS: LATANOPROST 0.005% OP SOLN 2.5 ML BTL OP SCH (21:13)
[2020-10-08] MEDS: METOPROLOL SUCC 25MG EXT REL TAB PO SCH (21:13)
[2020-10-08] MEDS: predniSONE 10 MG TABLET PO SCH (21:13)
[2020-10-09] MEDS: MoRPHine SULFATE IR 15 MG TAB (IMMEDIATE RELEASE) PO PRN ×3 (01:28→13:51)
[2020-10-09] MEDS: HYDROmorphone INJ 0.5 MG/0.5 ML SYR IV PRN (02:42)
[2020-10-09 06:33] LABS: Hemoglobin 11.8 g/dL (12.0-16.0); Mean Corpuscular Hemoglobin 30.2 pg (25-34); Mean Corpuscular Hgb Conc 31.9 g/dL (32-36); Mean Corpuscular Volume 94.6 fL (80-100); Mean Platelet Volume 9.8 fL (7.4-10.4); Platelet Count 249 K/uL (130-400); RDW Coefficient of Variation 13.3 % (11.5-14.5); RDW Standard Deviation 46.3 fL (36.4-46.3); Red Blood Count 3.91 M/uL (4.2-5.4); White Blood Count 6.08 K/uL (4.8-10.8)
[2020-10-09 07:06] LABS: BUN Creatinine Ratio 4.7 (10-20); Calcium 8.8 mg/dl (8.5-10.1); Creatinine Clr Calc Pharmacy 128.1 ml/min; Est GFR (African American) 126.2; Est GFR (Non-African American) 108.9; Potassium 3.9 mmol/L (3.5-5.1)
[2020-10-09 07:07] LABS: Phosphorus 3.4 mg/dl (2.5-4.9)
--- NOTE | 2020-10-09 08:13 | Hospitalist Progress Note ---
Date of Service October 09, 2020 Assessment & Plan (1) Abdominal pain: (2) Nausea: (3) Ileus: (4) Small bowel obstruction: Patient presents with abdominal pain, nausea, and CT findings concerning for Gastric and duodenal ileus versus small bowel obstruction at the duodenojejunal junction. 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 Ruiz know, currently she has appointment on 11/08) Advanced patient's to clear diet, and she is tolerating low fiber/low residue diet She is clinically much improved, and denies nausea, she is passing flatus however no BM yet (5) Chronic pain: (6) Rheumatoid arthritis: -Continue home prednisone, fentanyl patch and morphine prn for pain control - Discussed with pharmacy, fentanyl patch available is Alvagen, which is not the brand name, will try it and will closely monitor -Patient seems to be tolerating this fentanyl patch (7) COPD (chronic obstructive pulmonary disease): -Continue home inhalers, currently no exacerbation HTN - cont. metoprolol Anxiety home hydroxyzine as needed DVT ppx SCDs Code status : Discussed, patient is DNR/DNI Admission and Anticipated Discharge Date Admission Date: October 07, 2020 Subjective Patient seen in follow-up of possible SBO versus ileus versus SMA syndrome Currently patient feels much better, denies any nausea, tolerating low fiber diet without any troubles She is passing a lot of gas however denies any bowel movement yet Per surgery, less likely SBO, more likely SMA syndrome, ok to DC home and follow up w/ GI Review of Systems Review of Systems: All systems reviewed & are unremarkable except as noted in HPI & below Constitutional: no fever and no chills Respiratory: no cough and no dyspnea Cardiovascular: no chest pain and no palpitations Gastrointestinal: no abdominal pain, no nausea and no vomiting Musculoskeletal: + back pain (chronic) and + neck pain (chronic) Physical Exam Constitutional: WD/WN, vitals as above Eyes: PERRL, conjunctivae normal, anicteric sclerae ENMT: external ear and nose normal, oropharynx normal Neck: normal visual inspection Respiratory: normal respiratory effort, lungs clear to auscultation Auscultation: no crackles, no rales and no rhonchi Cardiovascular: RRR, no murmur, no edema Chest (Breasts): Chest: normal inspection of chest Gastrointestinal (Abdomen): Inspection/Auscultation: abdomen normal to inspection and normal bowel sounds; abdomen not distended Percussio n/Palpation: abdomen soft; abdomen nontender Musculoskeletal: Head/Neck/Chest: normocephalic and head atraumatic Spine: + scoliosis + Hand deformities due to RA Skin: no rashes, warm and dry Neurologic: PERRL, EOMI, accommodation nl, no face palsy, no dysarthria moves all extremities Psychiatric: A+Ox3, euthymic affect Genitourinary: no CVA tenderness Lymphatic: no lymphedema Results & Data Results & Data ([facility]) Vital Signs (Past 12 Hours) Vital Signs Temp Pulse Resp BP Pulse Ox 10/09/20 07:55 36.6 C 61 14 128/78 94 10/08/20 23:20 36.6 C 75 14 120/74 96 10/08/20 21:12 36.7 C 60 18 144/87 H 96 Laboratory Results 10/09/20 10/09/20 Range/Units 05:56 05:56 WBC 6.08 (4.8-10.8) K/uL RBC 3.91 L (4.2-5.4) M/uL Hgb 11.8 L (12.0-16.0) g/dL Hct 37.0 (37-47) % MCV 94.6 (80-100) fL MCH 30.2 (25-34) pg MCHC 31.9 L (32-36) g/dL RDW Std Deviation 46.3 (36.4-46.3) fL RDW Coeff of Emma 13.3 (11.5-14.5) % Plt Count 249 (130-400) K/uL MPV 9.8 (7.4-10.4) fL Sodium 142 (136-145) mmol/L Potassium 3.9 (3.5-5.1) mmol/L Chloride 111 H (98-107) mmol/L Carbon Dioxide 27 (21-32) mmol/L Anion Gap 5.0 (3-11) BUN 2 L (7-18) mg/dl Creatinine 0.47 L (0.6-1.2) mg/dl Est Cr Clr Drug Dosing 128.1 ml/min Est GFR ( Amer) 126.2 Est GFR (Non-Af Amer) 108.9 BUN/Creatinine Ratio 4.7 L (10-20) Glucose 110 H (70-99) mg/dl Calcium 8.8 (8.5-10.1) mg/dl Phosphorus 3.4 (2.5-4.9) mg/dl Magnesium 2.0 (1.8-2.4) mg/dl Medications Administered Current Inpatient Medications Albuterol (Albuterol Hfa 8 Gm Inhaler) 2 puffs INH Q6 PRN PRN Reason: Shortness Of Breath Stop: 11/06/20 07:58 Dicyclomine HCl (Dicyclomine Hcl 20 Mg Tab) 20 mg PO QID PRN PRN Reason: Abdominal Pain Stop: 11/06/20 07:58 Fentanyl (Fentanyl 100 Mcg/Hr Tdsy) 100 mcg TD Q48H [facility] Stop: 10/21/20 08:29 Last Admin: 10/07/20 08:51 Dose: 100 mcg Documented by: Fentanyl (Fentanyl 100 Mcg/Hr Tdsy) 100 mcg TD Q48H [facility] Stop: 10/21/20 08:29 Last Admin: 10/07/20 09:04 Dose: 100 mcg Documented by: Fluticasone Propionate (Fluticasone Propionate Na Spr 16 Gm Btl) 1 sprays NA DAILY PRN PRN Reason: Allergy Symptoms Stop: 11/06/20 07:58 Fluticasone/Vilanterol (Fluticasone/Vilanterol 100/25mcg 14 Puffs/Inhaler) 1 puffs INH DAILY [facility] Stop: 11/06/20 08:59 Last Admin: 10/08/20 08:08 Dose: 1 puffs Documented by: Hydromorphone HCl (Hydromorphone Inj 0.5 Mg/0.5 Ml Syr) 0.5 mg IV Q3H PRN PRN Reason: Pain Stop: 10/21/20 07:58 Last Admin: 10/09/20 02:42 Dose: 0.5 mg Documented by: Hydroxyzine HCl (Hydroxyzine Hcl 25 Mg Tab) 25 mg PO Q6H PRN PRN Reason: Anxiety Stop: 11/06/20 07:58 Dextrose/Sodium Chloride (D5w And 1/2nss) 1,000 mls @ 80 mls/hr IV .[id number] [facility] Stop: 11/07/20 07:44 Last Admin: 10/08/20 19:21 Dose: 80 mls/hr Documented by: Latanoprost (Latanoprost 0.005% Op Soln 2.5 Ml Btl) 1 drops OP [facility] Stop: 11/06/20 20:59 Last Admin: 10/08/20 21:13 Dose: 1 drops Documented by: Metoprolol Succinate (Metoprolol Succ 50mg Ext Rel Tab) 50 mg PO QAM [facility] Stop: 11/06/20 08:59 Last Admin: 10/08/20 08:09 Dose: 50 mg Documented by: Metoprolol Succinate (Metoprolol Succ 25mg Ext Rel Tab) 25 mg PO [facility] Stop: 11/06/20 20:59 Last Admin: 10/08/20 21:13 Dose: 25 mg Documented by: Miscellaneous (Check Fentanyl Patch Placement) 1 ea N/A QS [facility] Stop: 11/06/20 07:59 Last Admin: 10/08/20 22:57 Dose: 1 ea Documented by: Miscellaneous (Check Fentanyl Patch Placement) 1 ea N/A QS [facility] Stop: 11/06/20 15:59 Last Admin: 10/08/20 22:58 Dose: 1 ea Documented by: Miscellaneous (Fentanyl Patch Remove & Waste) 1 ea N/A Q48H [facility] Stop: 11/06/20 08:28 Last Admin: 10/07/20 08:55 Dose: 1 ea Documented by: Miscellaneous (Fentanyl Patch Remove & Waste) 1 ea N/A Q48H [facility] Stop: 11/06/20 08:28 Last Admin: 10/07/20 08:56 Dose: 1 ea Documented by: Morphine Sulfate (Morphine Sulfate Ir 15 Mg Tab (Immediate Release)) 30 mg PO Q3H PRN PRN Reason: Pain Stop: 10/21/20 08:16 Last Admin: 10/09/20 01:28 Dose: 30 mg Documented by: Ondansetron HCl (Ondansetron Inj 2 Mg/Ml 2 Ml Vial) 4 mg IV Q6H PRN PRN Reason: Nausea Stop: 11/06/20 07:58 Last Admin: 10/07/20 09:26 Dose: 4 mg Documented by: Polyethylene Glycol (Polyethylene (Miralax) 17 Gm Pack) 17 gm PO QAM PRN PRN Reason: Constipation Stop: 11/06/20 07:58 Last Admin: 10/09/20 06:25 Dose: 17 gm Documented by: Prednisone (Prednisone 10 Mg Tablet) 10 mg PO HS [facility] Stop: 11/06/20 20:59 Last Admin: 10/08/20 21:13 Dose: 10 mg Documented by: Umeclidinium [place] (Umeclidinium [place] 62.5mcg/Blister 7 Puffs/Inhaler) 1 puffs INH QAM [facility] Stop: 11/06/20 08:59 Last Admin: 10/08/20 08:08 Dose: 1 puffs Documented by:
[2020-10-09] MEDS: D5W AND 1/2NSS 1,000 ML IV SCH (08:51)
[2020-10-09] MEDS: FLUTICASONE/VILANTEROL 100/25MCG 14 PUFFS/INHALER INH SCH (08:55)
[2020-10-09] MEDS: UMECLIDINIUM BROMIDE 62.5MCG/BLISTER 7 PUFFS/INHALER INH SCH (08:55)
[2020-10-09] MEDS: METOPROLOL SUCC 50MG EXT REL TAB PO SCH (08:57)
[2020-10-09] MEDS: CHECK fentaNYL PATCH PLACEMENT SCH ×2 (09:00)
[2020-10-09] MEDS: fentaNYL 100 MCG/HR TDSY TD SCH ×2 (09:01)
--- NOTE | 2020-10-09 09:25 | Discharge Summary ---
Date of Service October 09, 2020 Admission HPI Per Admitting Provider Patient is a 60-year-old female, with history of COPD, hypertension, IBS, cervical spondylosis, idiopathic scoliosis, chronic pain syndrome, rheumatoid arthritis, for which she uses fentanyl and morphine, generalized anxiety disorder, who presents as direct admission/transfer from [facility], with nausea, abdominal pain, and likely ileus versus small bowel obstruction per CT scan. Patient reports presenting to [facility] with abdominal pain and nausea, CT scan obtained in [facility] ED concerning for Gastric and duodenal ileus versus small bowel obstruction at the duodenojejunal junction. No free air, free fluid, or fluid collection. Labs remarkable for low potassium and low magnesium. Patient follows with [facility] physicians, and therefore wanted to be transferred to [facility] and [facility]. She reports that her symptoms started after she used fentanyl patch that was generic. She reports that it happened to her before and she also developed abdominal pain and nausea when her pharmacy did not have a brand name fentanyl. Patient is currently on 200 mcg every 48 hours and morphine 30 mg as needed every 4 hours. She says that she has been weaning off as she used higher fentanyl patch dose before. Her chronic pain medications are being managed by her check writing machine operator/PCP. Patient does have chronic back pain and neck pain. She reports that for cervical spondylosis she follows with Dr. Barnhart/neurology. And she follows w/Dr. Lawson from rheumatology for her RA. Reports that she usually sleeps in a reclining chair, and she has difficulty lying flat, which exacerbates her pain. She reports she had a normal bowel movement on , then she had diarrhea on Friday. She has now discomfort at her right lower abdomen and some discomfort at her right upper abdomen as well. She refused NG tube at [facility], she reports that in the past she had troubles with NG tube. She otherwise denies any fevers, chills, chest pain, shortness of breath. No known sick contacts. Admission Exam Per Admitting Provider Constitutional: WD/WN, vitals as above Eyes: PERRL, conjunctivae normal, anicteric sclerae ENMT: external ear and nose normal, oropharynx normal Neck: normal visual inspection Respiratory: normal respiratory effort, lungs clear to auscultation Auscultation: no crackles, no rales and no rhonchi Cardiovascular: RRR, no murmur, no edema Chest (Breasts): Chest: normal inspection of chest Gastrointestinal (Abdomen): Inspection/Auscultation: abdomen normal to inspection and normal bowel sounds; abdomen not distended and no abdominal edema Percussion/Palpation: + abdomen tender (at R upper and lower quadrants) and abdomen soft Musculoskeletal: Head/Neck/Chest: normocephalic and head atraumatic Spine: + scoliosis + Hands deformity from RA bilaterally + moves extremities spontaneously Skin: no rashes, warm and dry Neurologic: PERRL, EOMI, accommodation nl, no face palsy, no dysarthria moves all extremities Psychiatric: A+Ox3, euthymic affect Genitourinary: no CVA tenderness Lymphatic: no lymphedema Principal Diagnosis Nausea, abdominal pain, due to SBO vs ileus versus SMA syndrome Discharge Exam Constitutional WD/WN, vitals as above Eyes PERRL, conjunctivae normal, anicteric sclerae ENMT external ear and nose normal, oropharynx normal Neck normal visual inspection Respiratory normal respiratory effort, lungs clear to auscultation Auscultation: no crackles, no rales and no rhonchi Cardiovascular RRR, no murmur, no edema Chest (Breasts) Chest: normal inspection of chest Gastrointestinal (Abdomen) Inspection/Auscultation: abdomen normal to inspection and normal bowel sounds; abdomen not distended Percussion/Palpation: abdomen soft; abdomen nontender Musculoskeletal Head/Neck/Chest: normocephalic and head atraumatic Spine: + scoliosis + hand deformities due to RA Skin no rashes, warm and dry Neurologic PERRL, EOMI, accommodation nl, no face palsy, no dysarthria moves all extremities Psychiatric A+Ox3, euthymic affect Genitourinary no CVA tenderness Lymphatic no lymphedema Discharge Data Allergies Allergy/AdvReac Type Severity Reaction Status Date / Time No Known Allergies Allergy Unknown Verified 09/14/20 11:09 Consultations 10/07/20 07:59 Consult General Surgery Routine Hospital Course (1) Abdominal pain: (2) Nausea: (3) Ileus: (4) Small bowel obstruction: Patient presents with abdominal pain, nausea, and CT findings concerning for Gastric and duodenal ileus versus small bowel obstruction at the duodenojejunal junction. 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 Ruiz know, currently she has appointment on 11/08) Advanced patient's diet, and she is tolerating low fiber/low residue diet She is clinically much improved, and denies nausea, she is passing flatus however no BM yet (5) Chronic pain: (6) Rheumatoid arthritis: -Continue home prednisone, fentanyl patch and morphine prn for pain control - Discussed with pharmacy, fentanyl patch available is Alvagen, which is not the brand name, will try it and will closely monitor -Patient seems to be tolerating this fentanyl patch (7) COPD (chronic obstructive pulmonary disease): -Continue home inhalers, currently no exacerbation HTN - cont. metoprolol Anxiety home hydroxyzine as needed Total Time Total Time Spent Total Time Spent (In Minutes): 35 Total Time Includes: Examination of the Patient, Discharge Planning, Medication Reconciliation and Communication With Other Providers Discharge Plan Discharge Items Patient Disposition: Home - Self-Care Reason For Visit: SOB Discharge Diagnosis: Nausea, abdominal pain, due to SBO vs ileus versus SMA syndrome Activity: Per Instructions section Non-emergency contact: Primary Care Provider and [employer] Call non-emergency contact if: you have any medication questions and your symptoms worsen Follow-up/Referrals: Torrie Araya MD [Primary Care Provider] - (Date & Time 10/16/2020 3:00 PM Provider Torrie Araya MD Department Internal Medicine [facility] ) Diet: Regular Addtl Attending Provider Instructions: Follow up with primary care doctor, your appointment was scheduled for you for October 16. You should also follow-up with your pan reclaim processor, Dr. Ruiz. Currently your appointment is scheduled for November 08, Dr. Ruiz was contacted from the hospital, and may want to reschedule your appointment for the earlier one. Pending Studies at Discharge: No Stand-Alone Forms: [employer], Smoking Cessation Medications and DC Order Prescriptions: Continued hydroxyzine HCl 25 mg tablet 25 mg PO Q6H PRN (Reason: Anxiety) RF: 0 Spiriva with HandiHaler 18 mcg Capsule, W/Inhalation Device 1 cap INHALATION QAM RF: 0 latanoprost 0.005 % Drops 1 drp OPHTHALMIC (EYE) HS RF: 0 fluticasone propion-salmeterol [Advair Diskus] 250-50 mcg/dose Blister With Device 1 inh INHALATION BID RF: 0 metoprolol succinate 50 mg Tablet Extended Release 24 Hr 50 mg PO QAM RF: 0 prednisone 5 mg Tablet 10 mg PO HS RF: 0 morphine 30 mg Tablet Extended Release 30 mg PO Q3H PRN (Reason: Pain) RF: 0 fentanyl 100 mcg/hr Patch 72 Hour 2 patch TRANSDERMAL Q48H RF: 0 dicyclomine 20 mg Tablet 20 mg PO QID PRN (Reason: Abdominal Pain) RF: 0 baclofen 10 mg Tablet 10 mg PO TID PRN (Reason: Muscle Spasm) RF: 0 furosemide 20 mg Tablet 20 mg PO DAILY PRN (Reason: Edema) RF: 0 metoprolol succinate 25 mg Tablet Extended Release 24 Hr 25 mg PO HS RF: 0 polyethylene glycol 3350 [Miralax] 17 gram/dose Powder 1 dose PO QAM PRN (Reason: Constipation) RF: 0 albuterol sulfate [Ventolin HFA] 90 mcg/actuation Hfa Aerosol Inhaler 2 puff INHALATION Q6 PRN (Reason: Shortness Of Breath) RF: 0 fluticasone propionate [Flonase Allergy Relief] 50 mcg/actuation [place],Suspension 1 - 2 spray INTRANASAL DAILY PRN (Reason: Allergy Symptoms) RF: 0 calcium carbonate-vitamin D3 [Os-Porfirio 500 + D3] 500 mg(1,250mg) -200 unit Tablet 1 tab PO QAM RF: 0 ondansetron 4 mg Film 4 mg PO Q6 PRN (Reason: Nausea) RF: 0 cholecalciferol (vitamin D3) 50,000 unit Tablet 50,000 unit PO WK RF: 0 cyanocobalamin (vitamin B-12) [Vitamin B-12] 1,000 mcg Tablet 1,000 mcg PO QAM RF: 0 Discharge Orders: Discharge Order (Routine); Ordered 10/09/20 Ordered By: Alvin Brothers Admission Data Admit Date/Time: 10/07/20 06:46 Attending Provider: Alvin Brothers Admit Provider: Laz Acosta Primary Care Provider: Torrie Araya Other Providers: Cristofer Gonzalez ; Shi Watts ; Aminta Ruiz ; Joao Harris ; Ajay Harvey ; Meghann Kenney ; Oanh Youssef ; Crispin Elias Jr ; Tamiko Keen ; Renny Jones ; Belkis Whaley ; Laz Acosta
== END 2020-10-09 16:10 | disposition home health service (06) | DRG 381 ==
LOC: 3W 06:46 → SUATTDRO 06:46

== ENCOUNTER 2022-06-10 16:00 | Inpatient (IN) ==
[2022-06-10] MEDS ORDERED: ONDANSETRON INJ 2 MG/ML 2 ML VIAL IV STA (18:14)
[2022-06-10] MEDS ORDERED: SODIUM CHLORIDE 0.9% 1000ML 500 ML IV SCH (18:15)
--- NOTE | 2022-06-10 18:16 | Emergency Department Note ---
Impression & Plan Generalized weakness, Urinary tract infection, Nausea & vomiting ED Provider Note HISTORY OF PRESENT ILLNESS: Patient is a 61-year-old female presenting with nausea and vomiting today. She reports that she has been having difficulties with urination for the last 48 hours. Reports that she has had 3 episodes of vomiting today. Reports that over the last week she has had shortness of breath with exertion and had significant weakness. States that she has been unable to get up and around like she normally does. Denies any notable fevers at home. Denies any recent exposure to sick contacts. Denies any chest pain or cough. Denies any diarrhea. ROS: Constitutional: No fever or chills +weakness Skin: No rash or diaphoresis HENT: No headaches or congestion Eyes: No vision changes Cardio: No chest pain, palpitations or leg swelling Respiratory: No cough, wheezing or shortness of breath GI: No diarrhea, constipation +nausea; +vomiting : No dysuria, polyuria MSK: No joint or back pain Neuro: No loss of sensation, confusion, focal deficits, numbness, tingling Psychiatric: No mood changes PHYSICAL EXAM: Constitutional: Patient appears in no acute distress. HENT: Head: Normocephalic and atraumatic. Eyes: EOMI, PERRL Mouth/Throat: Mucous membranes moist. Neck: Trachea midline. Neck supple. Cardiovascular: RRR, No murmurs, rubs or gallops. Intact distal pulses. Pulmonary/Chest: No respiratory distress. Breath sounds clear and equal bilaterally. No wheezes or rales. No chest wall tenderness to palpation. Abdominal: BS +. Abdomen soft, no tenderness, rebound or guarding. Back: No midline spinal tenderness, no paraspinal tenderness, no CVA ten derness. Musculoskeletal: No edema, tenderness or deformity noted. Skin: Warm and dry. No rash, erythema, pallor or cyanosis Psychiatric: Appropriate mood and affect for situation. Neurological: Alert and keenly responsive. CN II-XII grossly intact, moving all extremities equally and fully. MDM: - Vitals signs showed tachycardia initially. - EKG negative for acute ischemic changes. - Laboratory workup showed leukocytosis (WBC 11.9); stable electrolytes; normal lactate; normal troponin - COVID negative - CXR showed right upper lobe nodule and left basilar atelectasis. - UA showed evidence of infection. IV rocephin ordered. - During stay in ER, patient's saturations dropped to upper 80s. She was started on 2L NC. - Hospitalist wind turbine controls engineer, Dr. Allison, consulted for admission. - Patient admitted to [facility] service for further evaluation and management. ASSESSMENT AND PLAN: Diagnosis: UTI; generalized weakness; nausea and vomiting Plan: admit Past Med/Surg History Medical History (Updated 06/10/22 @ 22:24 by Edel Maldonado MD) Anxiety Chronic neck and back pain Chronic obstructive pulmonary disease Chronic pain COPD (chronic obstructive pulmonary disease) Current every day smoker Glaucoma bilt eyes History of anesthesia reaction Difficulty waking up. 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 forth Surgical History History of ankle surgery L ankle triple fusion (pins in place) d/t RA History of bilateral tubal ligation History of cholecystectomy History of colonoscopy History of dilatation and curettage History of esophagogastroduodenoscopy (EGD) History of partial hysterectomy History of total left knee replacement (TKR) History of total right knee replacement (TKR) Hx of toe surgery "all ten toes were straightened" Status post cystoscopy with ureteral stent placement Status post wrist surgery bilt fusion (R wrist has plate in place) d/t RA Family History Father Family hx of colon cancer Family history of reaction to anesthesia slow to wake Social History Smoking Status: Current every day smoker Tobacco Type: E-cigarettes / Vaping Cigarettes Per Day: Vapes several times daily; Second Hand Exposure: No; Hx Alcohol Use: No Hx Substance Use: No Preferred Language: Gabonese Communication Ability: Effective Field Mechanic Required: No Beliefs That Will Affect Care: None marital status: Current Living Situation: Alone Current Living Situation Comment: Lives in apt[address]one story with 5 days/week caretakers; independent on weekend Feels Safe at Home: Yes Assistive Devices: None Allergies Allergies Allergy/AdvReac Type Severity Reaction Status Date / Time No Known Allergies Allergy Unknown Verified 09/14/20 11:09 Home Meds Home Medications Medication Instructions Recorded Confirmed albuterol sulfate 90 mcg/actuation 2 puff inhalation Q6 PRN Shortness 06/11/18 09/14/20 aerosol inhaler (Ventolin HFA) Of Breath baclofen 10 mg tablet 10 mg PO TID PRN Muscle Spasm 06/11/18 09/14/20 calcium carbonate 500 mg-vitamin 1 tab PO QAM 06/11/18 09/14/20 D3 5 mcg (200 unit) tablet (Os-Porfirio 500 + D3) cholecalciferol (vitamin D3) 1,250 50,000 unit PO WK 06/11/18 09/14/20 mcg (50,000 unit) tablet dicyclomine 20 mg tablet 20 mg PO QID PRN Abdominal Pain 06/11/18 09/14/20 fentanyl 100 mcg/hr transdermal 2 patch transdermal Q48H 06/11/18 09/14/20 patch fluticasone 250 mcg-salmeterol 50 1 inh inhalation BID 06/11/18 09/14/20 mcg/dose blistr powdr for inhalation (Advair Diskus) fluticasone propionate 50 1 - 2 spray intranasal DAILY PRN 06/11/18 09/14/20 mcg/actuation nasal Allergy Symptoms spray,suspension (Flonase Allergy Relief) furosemide 20 mg tablet 20 mg PO DAILY PRN Edema 06/11/18 09/14/20 latanoprost 0.005 % eye drops 1 drp ophthalmic (eye) HS 06/11/18 09/14/20 metoprolol succinate 25 mg 25 mg PO HS 06/11/18 09/14/20 tablet,extended release 24 hr metoprolol succinate 50 mg 50 mg PO QAM 06/11/18 09/14/20 tablet,extended release 24 hr morphine 30 mg tablet,extended 30 mg PO Q3H PRN Pain 06/11/18 09/14/20 release ondansetron 4 mg oral soluble film 4 mg PO Q6 PRN Nausea 06/11/18 09/14/20 polyethylene glycol 3350 17 1 dose PO QAM PRN Constipation 06/11/18 09/14/20 gram/dose oral powder (Miralax) prednisone 5 mg tablet 10 mg PO HS 06/11/18 09/14/20 tiotropium bromide 18 mcg capsule 1 cap inhalation QAM 06/11/18 09/14/20 with inhalation device (Spiriva with HandiHaler) cyanocobalamin (vitamin B-12) 1,000 mcg PO QAM 09/14/20 09/14/20 1,000 mcg tablet (Vitamin B-12) hydroxyzine HCl 25 mg tablet 25 mg PO Q6H PRN Anxiety 10/07/20 10/07/20 Results & Data (ED) Vital Signs Vital Signs - 24 hr 06/10/22 17:45 06/10/22 17:48 06/10/22 18:00 Temperature 36.9 C Temperature Source Oral Pulse Rate 101 H 67 90 Pulse Rate [Finger] Pulse Rate from SpO2 Sensor 68 91 H Pulse Rhythm Regular Respiratory Rate 20 15 16 Respiratory Effort / Characteristics Non-Labored Respiratory Depth Normal Blood Pressure 128/80 Blood Pressure [Right Arm] Blood Pressure Mean 96 Blood Pressure Mean [Right Arm] Pulse Oximetry 94 92 96 Oxygen Delivery Method Room Air Oxygen Flow Rate Sepsis New/Unexplained Change in Mental Status N/A Sepsis Action Taken by Nursing No Action Required 06/10/22 19:20 06/10/22 19:21 06/10/22 19:30 Temperature Temperature Source Pulse Rate 96 H Pulse Rate [Finger] 83 Pulse Rate from SpO2 Sensor Pulse Rhythm Respiratory Rate 18 18 Respiratory Effort / Characteristics Non-Labored Spontaneous Respiratory Depth Normal Blood Pressure 125/79 Blood Pressure [Right Arm] 132/82 Blood Pressure Mean 94 Blood Pressure Mean [Right Arm] 98 Pulse Oximetry 95 95 95 Oxygen Delivery Method Room Air Room Air Oxygen Flow Rate Sepsis New/Unexplained Change in Mental Status Sepsis Action Taken by Nursing 06/10/22 20:00 06/10/22 20:30 06/10/22 21:00 Temperature Temperature Source Pulse Rate 75 81 88 Pulse Rate [Finger] Pulse Rate from SpO2 Sensor Pulse Rhythm Respiratory Rate 18 18 18 Respiratory Effort / Characteristics Respiratory Depth Blood Pressure 116/88 127/77 121/62 Blood Pressure [Right Arm] Blood Pressure Mean 97 93 81 Blood Pressure Mean [Right Arm] Pulse Oximetry 92 91 88 L Oxygen Delivery Method Nasal Cannula Oxygen Flow Rate 2 Sepsis New/Unexplained Change in Mental Status Sepsis Action Taken by Nursing Laboratory Data Result diagrams: 06/10/22 18:35 06/10/22 18:35 Lab Results 06/10/22 06/10/22 06/10/22 Range/Units 18:35 18:35 18:35 WBC 11.90 H (4.8-10.8) K/ul RBC 4.25 (3.93-5.22) M/uL Hgb 12.7 (12.0-16.0) g/dl Hct 39.5 (34.1-44.9) % MCV 92.9 (80.0-100.0) fL MCH 29.9 (25.0-34.0) pg MCHC 32.2 (32.0-36.0) g/dL RDW Std Deviation 45.5 (36.4-46.3) fL RDW Coeff of Emma 13.4 (11.5-14.5) % Plt Count 236 (130-400) K/uL MPV 8.6 L (9.4-12.3) fL Immature Gran % (Auto) 0.4 % Neut % (Auto) 76.6 % Lymph % (Auto) 15.5 % [place] % (Auto) 6.6 % Eos % (Auto) 0.5 % Baso % (Auto) 0.4 % Neut # (Auto) 9.10 H (1.4-6.5) K/uL Lymph # (Auto) 1.85 (1.2-3.4) K/uL [place] # (Auto) 0.79 (0.24-0.82) K/uL Eos # (Auto) 0.06 (0-0.50) K/uL Baso # (Auto) 0.05 (0-0.2) K/uL Immature Gran # (Auto) 0.05 H (0.00-0.02) K/uL Sodium 137 (136-145) mmol/L Potassium 3.8 (3.5-5.1) mmol/L Chloride 101 (98-107) mmol/L Carbon Dioxide 28 (21-32) mmol/L Anion Gap 8 (3-11) BUN 4 L (6-23) mg/dl Creatinine 0.41 L (0.6-1.2) mg/dl Est Cr Clr Drug Dosing 149.6 ml/min Est GFR ( Amer) 131.1 ml/min Est GFR (Non-Af Amer) 113.1 ml/min BUN/Creatinine Ratio 9.8 L (10-20) Glucose 76 (70-99(Fasting)) mg/dl Lactate 1.1 (0.4-2.0) mmol/L Calcium 9.0 (8.5-10.1) mg/dl Magnesium 1.9 (1.7-2.4) mg/dl Total Bilirubin 1.1 H (0.2-1.0) mg/dl Direct Bilirubin 0.2 (0-0.2) mg/dl AST 15 (13-39) U/L ALT 11 (7-52) U/L Alkaline Phosphatase 43 (34-104) U/L Troponin I High Sens 7.4 (0-14) pg/ml Total Protein 6.5 (6.0-8.3) gm/dl Albumin 3.4 (3.4-5.0) gm/dl Procalcitonin (0-0.5) ng/ml Urine Color Urine Appearance (Clear) Urine pH (4.5-7.5) Ur Specific [place] (1.000-1.030) Urine Protein (Negative) Urine Glucose (UA) (Negative) Urine Ketones (Negative) Urine Blood (Negative) Urine Nitrite (Negative) Urine Bilirubin (Negative) Urine Urobilinogen (Negative) Ur Leukocyte Esterase (Negative) Urine WBC (Auto) (0-5) /hpf Urine RBC (Auto) (0-4) /hpf U Hyaline Cast (Auto) (0-5) /lpf U Epithel Cells (Auto) (0-5) /lpf Urine Bacteria (Auto) (Negative) SARS-CoV-2 (PCR) (Negative) Influenza Type A (PCR) (Neg) Influenza Type B (PCR) (Neg) RSV (RT-PCR) (Neg) 06/10/22 06/10/22 06/10/22 Range/Units 18:35 19:00 19:35 WBC (4.8-10.8) K/ul RBC (3.93-5.22) M/uL Hgb (12.0-16.0) g/dl Hct (34.1-44.9) % MCV (80.0-100.0) fL MCH (25.0-34.0) pg MCHC (32.0-36.0) g/dL RDW Std Deviation (36.4-46.3) fL RDW Coeff of Emma (11.5-14.5) % Plt Count (130-400) K/uL MPV (9.4-12.3) fL Immature Gran % (Auto) % Neut % (Auto) % Lymph % (Auto) % [place] % (Auto) % Eos % (Auto) % Baso % (Auto) % Neut # (Auto) (1.4-6.5) K/uL Lymph # (Auto) (1.2-3.4) K/uL [place] # (Auto) (0.24-0.82) K/uL Eos # (Auto) (0-0.50) K/uL Baso # (Auto) (0-0.2) K/uL Immature Gran # (Auto) (0.00-0.02) K/uL Sodium (136-145) mmol/L Potassium (3.5-5.1) mmol/L Chloride (98-107) mmol/L Carbon Dioxide (21-32) mmol/L Anion Gap (3-11) BUN (6-23) mg/dl Creatinine (0.6-1.2) mg/dl Est Cr Clr Drug Dosing ml/min Est GFR ( Amer) ml/min Est GFR (Non-Af Amer) ml/min BUN/Creatinine Ratio (10-20) Glucose (70-99(Fasting)) mg/dl Lactate (0.4-2.0) mmol/L Calcium (8.5-10.1) mg/dl Magnesium (1.7-2.4) mg/dl Total Bilirubin (0.2-1.0) mg/dl Direct Bilirubin (0-0.2) mg/dl AST (13-39) U/L ALT (7-52) U/L Alkaline Phosphatase (34-104) U/L Troponin I High Sens (0-14) pg/ml Total Protein (6.0-8.3) gm/dl Albumin (3.4-5.0) gm/dl Procalcitonin < 0.05 (0-0.5) ng/ml Urine Color Dark Yellow Urine Appearance Cloudy A (Clear) Urine pH 6.5 (4.5-7.5) Ur Specific [place] 1.019 (1.000-1.030) Urine Protein Trace H (Negative) Urine Glucose (UA) Negative (Negative) Urine Ketones 2+ H (Negative) Urine Blood Negative (Negative) Urine Nitrite Negative (Negative) Urine Bilirubin Negative (Negative) Urine Urobilinogen Negative (Negative) Ur Leukocyte Esterase 2+ H (Negative) Urine WBC (Auto) >30 H (0-5) /hpf Urine RBC (Auto) 0-4 (0-4) /hpf U Hyaline Cast (Auto) 1-5 (0-5) /lpf U Epithel Cells (Auto) 0-5 (0-5) /lpf Urine Bacteria (Auto) 4+ H (Negative) SARS-CoV-2 (PCR) NEGATIVE (Negative) Influenza Type A (PCR) Negative (Neg) Influenza Type B (PCR) Negative (Neg) RSV (RT-PCR) Negative (Neg) Administered Medications Discontinued Medications Sodium Chloride (Nss 1000ml) 500 mls @ 999 mls/hr IV .Q31M LINDA Stop: 06/10/22 18:45 Last Infusion: 06/10/22 20:27 Dose: 0 mls/hr Documented By: Admin: 06/10/22 19:28 Dose: 999 mls/hr Documented By: DELMY Ceftriaxone Sodium (Rocephin) 1,000 mg in 50 mls @ 100 mls/hr IV NOW STA Stop: 06/10/22 20:38 Last Infusion: 06/10/22 21:33 Dose: 0 mls/hr Documented By: Admin: 06/10/22 20:24 Dose: 100 mls/hr Documented By: DELMY Ondansetron HCl (Ondansetron Inj 2 Mg/Ml 2 Ml Vial) 4 mg IV NOW STA Stop: 06/10/22 18:15 Last Admin: 06/10/22 19:27 Dose: 4 mg Documented By: DELMY Imaging Data Radiologist's Impression: Chest X-Ray 06/10/22 18:13 XR chest 1V portable CLINICAL HISTORY: Sepsis. COMPARISON STUDY: Chest radiograph July 11, 2015. FINDINGS: Note is made of mild elevation the right hemidiaphragm. No consolidation is identified. Linear left basilar opacity favors atelectasis. Apparent hazy left basilar opacity is likely artifactual. There is an equivocal 1.2 cm right upper lobe nodule. There is no pneumothorax or pleural effusion. Cardiac size is normal. Mediastinal contours are normal. There is no evidence for pulmonary edema. IMPRESSION: 1. No acute cardiopulmonary findings. 2. Equivocal 1.2 cm right upper lobe nodule. This is likely artifactual. However, a nonemergent chest CT is recommended. 3. Linear left basilar opacity which favors atelectasis. ACT 112: Negative or not required by law. Electronically signed by: Finesse Beltran M.D. 06/10/2022 8:07 PM Discharge Plan Visit Data Chief Complaint: Illness ED Provider: Edel Maldonado Discharge Problem: Generalized weakness, Urinary tract infection, Nausea & vomiting Patient Disposition: Admitted As Inpatient Forms Stand Alone Forms: [facility] Prescriptions Prescriptions: No Action hydroxyzine HCl 25 mg tablet 25 mg PO Q6H PRN (Reason: Anxiety) Spiriva with HandiHaler 18 mcg Capsule, W/Inhalation Device 1 cap INHALATION QAM latanoprost 0.005 % Drops 1 drp OPHTHALMIC (EYE) HS fluticasone propion-salmeterol [Advair Diskus] 250-50 mcg/dose Blister With Device 1 inh INHALATION BID metoprolol succinate 50 mg Tablet Extended Release 24 Hr 50 mg PO QAM prednisone 5 mg Tablet 10 mg PO HS morphine 30 mg Tablet Extended Release 30 mg PO Q3H PRN (Reason: Pain) fentanyl 100 mcg/hr Patch 72 Hour 2 patch TRANSDERMAL Q48H dicyclomine 20 mg Tablet 20 mg PO QID PRN (Reason: Abdominal Pain) baclofen 10 mg Tablet 10 mg PO TID PRN (Reason: Muscle Spasm) furosemide 20 mg Tablet 20 mg PO DAILY PRN (Reason: Edema) metoprolol succinate 25 mg Tablet Extended Release 24 Hr 25 mg PO HS polyethylene glycol 3350 [Miralax] 17 gram/dose Powder 1 dose PO QAM PRN (Reason: Constipation) albuterol sulfate [Ventolin HFA] 90 mcg/actuation Hfa Aerosol Inhaler 2 puff INHALATION Q6 PRN (Reason: Shortness Of Breath) fluticasone propionate [Flonase Allergy Relief] 50 mcg/actuation [place],Suspension 1 - 2 spray INTRANASAL DAILY PRN (Reason: Allergy Symptoms) calcium carbonate-vitamin D3 [Os-Porfirio 500 + D3] 500 mg(1,250mg) -200 unit Tablet 1 tab PO QAM ondansetron 4 mg Film 4 mg PO Q6 PRN (Reason: Nausea) cholecalciferol (vitamin D3) 50,000 unit Tablet 50,000 unit PO WK Rx Instructions: on fridays cyanocobalamin (vitamin B-12) [Vitamin B-12] 1,000 mcg Tablet 1,000 mcg PO QAM Referrals Referrals: Torrie Araya MD [Primary Care Provider] -
[2022-06-10 18:45] LABS: Basophils # (auto) 0.05 K/uL (0-0.2); Basophils % (auto) 0.4 %; Eosinophils # (auto) 0.06 K/uL (0-0.50); Eosinophils % (auto) 0.5 %; Hematocrit (blood only) 39.5 % (34.1-44.9); Hemoglobin 12.7 g/dl (12.0-16.0); Immature Granulocytes # (auto) 0.05 K/uL (0.00-0.02); Immature Granulocytes % (auto) 0.4 %; Lymphocytes # (auto) 1.85 K/uL (1.2-3.4); Lymphocytes % (auto) 15.5 %; Mean Corpuscular Hemoglobin 29.9 pg (25.0-34.0); Mean Corpuscular Hgb Conc 32.2 g/dL (32.0-36.0); Mean Corpuscular Volume 92.9 fL (80.0-100.0); Mean Platelet Volume 8.6 fL (9.4-12.3); Monocytes # (auto) 0.79 K/uL (0.24-0.82); Monocytes % (auto) 6.6 %; Neutrophils % (auto) 76.6 %; Platelet Count 236 K/uL (130-400); RDW Coefficient of Variation 13.4 % (11.5-14.5); RDW Standard Deviation 45.5 fL (36.4-46.3); Red Blood Count 4.25 M/uL (3.93-5.22)
[2022-06-10 19:27] LABS: Albumin Level 3.4 gm/dl (3.4-5.0); BUN Creatinine Ratio 9.8 (10-20); Bilirubin Direct 0.2 mg/dl (0-0.2); Bilirubin,Total 1.1 mg/dl (0.2-1.0); Creatinine Clr Calc Pharmacy 149.6 ml/min; Est GFR (African American) 131.1 ml/min; Est GFR (Non-African American) 113.1 ml/min; Magnesium 1.9 mg/dl (1.7-2.4); Potassium 3.8 mmol/L (3.5-5.1); Total Protein 6.5 gm/dl (6.0-8.3); Troponin I High Sensitivity 7.4 pg/ml (0-14)
[2022-06-10 19:53] LABS: Appearance Urine Cloudy (Clear); Bacteria Urine Automated 4+ (Negative); Bilirubin Urine Negative (Negative); Blood Urine Negative (Negative); Color Urine Dark Yellow; Epithelial Cell Urine Auto 0-5 /lpf (0-5); Glucose Urine UA Negative (Negative); Ketones Urine 2+ (Negative); Leukocyte Esterase Urine 2+ (Negative); Nitrite Urine Negative (Negative); Protein Urine Trace (Negative); RBC Urine Automated 0-4 /hpf (0-4); Specific Gravity Urine 1.019 (1.000-1.030); Urobilinogen Urine Negative (Negative); WBC Urine Automated >30 /hpf (0-5); pH Urine 6.5 (4.5-7.5)
[2022-06-10] MEDS ORDERED: cefTRIAXone SODIUM 1,000 MG/50 ML BAG IV STA (20:09)
--- NOTE | 2022-06-10 20:09 | XRay Report ---
XR chest 1V portable CLINICAL HISTORY: Sepsis. COMPARISON STUDY: Chest radiograph July 11, 2015. FINDINGS: Note is made of mild elevation the right hemidiaphragm. No consolidation is identified. Amanda ear left basilar opacity favors atelectasis. Apparent hazy left basilar opacity is likely artifactual . There is an equivocal 1.2 cm right upper lobe nodule. There is no pneumothorax or pleural effusion. Cardiac size is normal. Mediastinal contours are normal. There is no evidence for pulmonary edema. IMPRESSION: 1. No acute cardiopulmonary findings. 2. Equivocal 1.2 cm right upper lobe nodule. This is likely artifactual. However, a nonemergent chest CT is recommended. 3. Linear left basilar opacity which favors atelectasis. ACT 112: Negative or not required by law. Electronically signed by: Finesse Beltran M.D. 06/10/2022 8:07 PM
[2022-06-10 21:32] LABS: Influenza A virus by PCR Negative (Neg); Influenza B virus by PCR Negative (Neg); RSV by PCR Negative (Neg); SARS CoV2 RNA(COVID-19) InHosp NEGATIVE (Negative)
[2022-06-10] MEDS ORDERED: PIPERACILLIN/TAZOBACTAM 4.5 GM/120 ML BAG IV ONE (22:11)
[2022-06-10] MEDS ORDERED: MAGNESIUM SULFATE / D5W 1 GM/100 ML BAG IV ONE (22:12)
[2022-06-10] MEDS ORDERED: methylPREDNISolone 40 MG in SYRINGE 0 ML IV STA (22:14)
[2022-06-10] MEDS ORDERED: LACTATED RINGER'S 1,000 ML IV ONE (22:19)
[2022-06-10] MEDS ORDERED: KETOROLAC TROMETHAMINE 15 MG/ML VIAL IV ONE (22:39)
[2022-06-10] MEDS ORDERED: fentaNYL 75 MCG/HR TDSY TD ONE (22:45)
[2022-06-10] MEDS ORDERED: fentaNYL 100 MCG/HR TDSY TD STA (22:45)
[2022-06-10] MEDS ORDERED: ALBUT/IPRATROP 3MG/0.5MG NEB 3 ML VIAL NEB STA (22:46)
[2022-06-10] MEDS ORDERED: OPTIRAY 320 500ml IV ONE (23:58)
--- NOTE | 2022-06-11 00:41 | History & Physical Report ---
Date of Service June 11, 2022 Assessment & Plan (1) Acute hypoxemic respiratory failure: Plan: Transient hypoxemia Underlying COPD Secondary to traumatic right rib fracture secondary to mechanical fall Abdominal pain with RLQ tenderness Recurrent UTI appendiceal enlargement on initial CT read No sepsis for now hypertension, stable rheumatoid arthritis on chronic prednisone Rx Possible aspiration risk chronic pain on narcotics anxiety disorder, at baseline Ambulatory dysfunction past tobacco abuse. GMF Supplemental O2 as needed Incentive spirometry Lidoderm patch trial, analgesia Ceftriaxone for complicated UTI Add Flagyl for possible appendicitis Surgery consult Re: Possible appendicitis on CT N.p.o. until patient evaluated by Surgery. Aspiration precautions, swallow eval PT OT eval DVT prophylaxis. Lovenox subcu DNR Text document was generated using [employer] voice recognition software. It may contain grammatical or spelling errors. Kindly contact undersigned for clarification of any documentation item in question. History of Present Illness Chief Complaint: Chest pain, abdominal pain, nausea, vomiting Primary Care Provider: Torrie Araya MD History obtained from patient and records. Medical history significant for COPD, hypertension, rheumatoid arthritis on chronic prednisone Rx, chronic pain on narcotics, anxiety disorder, past tobacco abuse. Last confinement September 2020 for nausea, abdominal pain, SBO versus ileus versus SMA syndrome. Increasing weakness at home the last 2 days. Fall resulting in some head trauma. Pleuritic right-sided chest pain. Achy abdominal pain with emesis and UTI symptoms. No fever, no chills. No unusual cough symptoms. Admits to occasional coughing with water/fluid intake which patient attributes to her neck issues. IV ceftriaxone administered upon arrival at the ER. O2 sats 88 at 1 point during ER stay. Medical History as above Surgical History : Cystoscopy, ankle fusion surgery, wrist fusion surgery, cholecystectomy, oophorectomy, SHE Family History : Heart disease, lymphoma, Parkinson's disease Personal/Social history : Past tobacco abuse, no EtOH intake Allergies Allergy/AdvReac Type Severity Reaction Status Date / Time No Known Allergies Allergy Unknown Verified 06/10/22 22:49 Home Medications Medication Instructions Recorded Confirmed Type albuterol sulfate 90 mcg/actuation 2 puff inhalation Q4H PRN 06/11/18 06/10/22 History aerosol inhaler (Ventolin HFA) Shortness Of Breath dicyclomine 20 mg tablet 20 mg PO QID PRN Abdominal Pain 06/11/18 06/10/22 History fentanyl 100 mcg/hr transdermal 1 patch transdermal Q72H 06/11/18 06/10/22 History patch furosemide 20 mg tablet 20 mg PO DAILY PRN Edema 06/11/18 06/10/22 History latanoprost 0.005 % eye drops 1 drp OPB HS 06/11/18 06/10/22 History morphine 30 mg tablet,extended 30 mg PO Q4H PRN Pain 06/11/18 06/10/22 History release polyethylene glycol 3350 17 1 dose PO QAM 06/11/18 06/10/22 History gram/dose oral powder (Miralax) cyanocobalamin (vitamin B-12) 1,000 mcg PO QAM 09/14/20 06/10/22 History 1,000 mcg tablet (Vitamin B-12) hydroxyzine HCl 25 mg tablet 25 mg PO Q6H PRN Anxiety 10/07/20 06/10/22 History calcium carbonate 600 mg-vitamin 1 cap PO DAILY 06/10/22 06/10/22 History D3 5 mcg (200 unit) capsule (Calcium 600 + D(3)) fentanyl 75 mcg/hr transdermal 75 mcg topical Q72H 06/10/22 06/10/22 History patch fluticasone 250 mcg-salmeterol 50 1 inh inhalation BID 06/10/22 06/10/22 History mcg/dose blistr powdr for inhalation (Wixela Inhub) fluticasone propionate 50 2 spray intranasal DAILY 06/10/22 06/10/22 History mcg/actuation nasal spray,suspension metoprolol succinate 50 mg 50 mg PO DAILY 06/10/22 06/10/22 History tablet,extended release 24 hr naloxone 4 mg/actuation nasal spray 4 mg intranasal .DAILY/UD PRN 06/10/22 06/10/22 History Opiate Reversal ondansetron 8 mg disintegrating 8 mg translingual Q8H PRN Nausea 06/10/22 06/10/22 History tablet prednisone 5 mg tablet 5 - 10 mg PO DAILY 06/10/22 06/10/22 History triamcinolone acetonide 0.1 % 1 applic topical BID PRN .BACK 06/10/22 06/10/22 History topical ointment ERUPTION Past Med/Surg History Medical History Anxiety Chronic neck and back pain Chronic obstructive pulmonary disease Chronic pain COPD (chronic obstructive pulmonary disease) Current every day smoker Glaucoma bilt eyes History of anesthesia reaction Difficulty waking up. 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 forth Surgical History History of ankle surgery L ankle triple fusion (pins in place) d/t RA History of bilateral tubal ligation History of cholecystectomy History of colonoscopy History of dilatation and curettage History of esophagogastroduodenoscopy (EGD) History of partial hysterectomy History of total left knee replacement (TKR) History of total right knee replacement (TKR) Hx of toe surgery "all ten toes were straightened" Status post cystoscopy with ureteral stent placement Status post wrist surgery bilt fusion (R wrist has plate in place) d/t RA Family History Father Family hx of colon cancer Family history of reaction to anesthesia slow to wake Social History Smoking Status: Current every day smoker Tobacco Type: E-cigarettes / Vaping Cigarettes Per Day: Vapes several times daily; Second Hand Exposure: No; Hx Alcohol Use: No Hx Substance Use: No Preferred Language: Italian Communication Ability: Effective Nurse Gynecology Required: No Beliefs That Will Affect Care: None marital status: Current Living Situation: Family Current Living Situation Comment: patient has downstairs apartment. patient's sister and upstairs Other Information That Helps Us Care for You: No Feels Safe at Home: Yes Safety Concerns: Feels Safe At This Time Assistive Devices: Glasses and Wheelchair Review of Systems Review of Systems: As per HPI, all other systems reviewed and negative Physical Exam Physical Exam: GENERAL: Slightly uncomfortable, pleasant, no respiratory distress SKIN: Normal color, warm HEENT: [place] palpebral conjunctivae, no ptosis, dry buccal mucosa, nasal cannula in place NECK : Some limitation in range of motion, no tenderness CHEST : Kyphotic, decreased breath sounds, right chest wall tenderness HEART : RRR, no obvious murmurs ABDOMEN: Some distention, RLQ tenderness EXTREMITIES : Contracture deformities in both hands, no LE swelling/tenderness NEUROLOGIC : Coherent, no facial asymmetry, no other gross focality Results & Data Results & Data ([facility]) Vital Signs (Past 12 Hours) Vital Signs Temp Pulse Pulse Resp BP BP Pulse Ox 06/10/22 22:30 89 22 132/85 93 06/10/22 22:30 132/85 06/10/22 21:52 77 14 104/69 95 06/10/22 21:00 88 18 121/62 88 L 06/10/22 20:30 81 18 127/77 91 06/10/22 20:00 75 18 116/88 92 06/10/22 19:30 96 H 18 125/79 95 06/10/22 19:21 95 06/10/22 19:20 83 18 132/82 95 06/10/22 18:00 90 16 96 06/10/22 17:48 67 15 92 06/10/22 17:45 36.9 C 101 H 20 128/80 94 O2 Del Method O2 Flow Rate 06/10/22 22:30 06/10/22 22:30 06/10/22 21:52 06/10/22 21:00 Nasal Cannula 2 06/10/22 20:30 06/10/22 20:00 06/10/22 19:30 06/10/22 19:21 Room Air 06/10/22 19:20 Room Air 06/10/22 18:00 06/10/22 17:48 06/10/22 17:45 Room Air Laboratory Results Laboratory Results WBC 11.90 K/ul (4.8-10.8) H 06/10/22 18:35 RBC 4.25 M/uL (3.93-5.22) 06/10/22 18:35 Hgb 12.7 g/dl (12.0-16.0) 06/10/22 18:35 Hct 39.5 % (34.1-44.9) 06/10/22 18:35 MCV 92.9 fL (80.0-100.0) 06/10/22 18:35 MCH 29.9 pg (25.0-34.0) 06/10/22 18:35 MCHC 32.2 g/dL (32.0-36.0) 06/10/22 18:35 RDW Std Deviation 45.5 fL (36.4-46.3) 06/10/22 18:35 RDW Coeff of Emma 13.4 % (11.5-14.5) 06/10/22 18:35 Plt Count 236 K/uL (130-400) 06/10/22 18:35 MPV 8.6 fL (9.4-12.3) L 06/10/22 18:35 Immature Gran % (Auto) 0.4 % 06/10/22 18:35 Neut % (Auto) 76.6 % 06/10/22 18:35 Lymph % (Auto) 15.5 % 06/10/22 18:35 [place] % (Auto) 6.6 % 06/10/22 18:35 Eos % (Auto) 0.5 % 06/10/22 18:35 Baso % (Auto) 0.4 % 06/10/22 18:35 Neut # (Auto) 9.10 K/uL (1.4-6.5) H 06/10/22 18:35 Lymph # (Auto) 1.85 K/uL (1.2-3.4) 06/10/22 18:35 [place] # (Auto) 0.79 K/uL (0.24-0.82) 06/10/22 18:35 Eos # (Auto) 0.06 K/uL (0-0.50) 06/10/22 18:35 Baso # (Auto) 0.05 K/uL (0-0.2) 06/10/22 18:35 Immature Gran # (Auto) 0.05 K/uL (0.00-0.02) H 06/10/22 18:35 Sodium 137 mmol/L (136-145) 06/10/22 18:35 Potassium 3.8 mmol/L (3.5-5.1) 06/10/22 18:35 Chloride 101 mmol/L (98-107) 06/10/22 18:35 Carbon Dioxide 28 mmol/L (21-32) 06/10/22 18:35 Anion Gap 8 (3-11) 06/10/22 18:35 BUN 4 mg/dl (6-23) L 06/10/22 18:35 Creatinine 0.41 mg/dl (0.6-1.2) L 06/10/22 18:35 Est Cr Clr Drug Dosing 149.6 ml/min 06/10/22 18:35 Est GFR ( Amer) 131.1 ml/min 06/10/22 18:35 Est GFR (Non-Af Amer) 113.1 ml/min 06/10/22 18:35 BUN/Creatinine Ratio 9.8 (10-20) L 06/10/22 18:35 Glucose 76 mg/dl (70-99(Fasting)) 06/10/22 18:35 Lactate 1.1 mmol/L (0.4-2.0) 06/10/22 18:35 Calcium 9.0 mg/dl (8.5-10.1) 06/10/22 18:35 Magnesium 1.9 mg/dl (1.7-2.4) 06/10/22 18:35 Total Bilirubin 1.1 mg/dl (0.2-1.0) H 06/10/22 18:35 Direct Bilirubin 0.2 mg/dl (0-0.2) 06/10/22 18:35 AST 15 U/L (13-39) 06/10/22 18:35 ALT 11 U/L (7-52) 06/10/22 18:35 Alkaline Phosphatase 43 U/L (34-104) 06/10/22 18:35 Troponin I High Sens 7.0 pg/ml (0-14) 06/10/22 23:05 Total Protein 6.5 gm/dl (6.0-8.3) 06/10/22 18:35 Albumin 3.4 gm/dl (3.4-5.0) 06/10/22 18:35 Lipase 12 U/L (11-82) 06/10/22 23:05 Procalcitonin < 0.05 ng/ml (0-0.5) 06/10/22 18:35 TSH 0.790 uIu/ml (0.300-4.500) 06/10/22 18:35 Urine Color Dark Yellow 06/10/22 19:35 Urine Appearance Cloudy (Clear) A 06/10/22 19:35 Urine pH 6.5 (4.5-7.5) 06/10/22 19:35 Ur Specific [place] 1.019 (1.000-1.030) 06/10/22 19:35 Urine Protein Trace (Negative) H 06/10/22 19:35 Urine Glucose (UA) Negative (Negative) 06/10/22 19:35 Urine Ketones 2+ (Negative) H 06/10/22 19:35 Urine Blood Negative (Negative) 06/10/22 19:35 Urine Nitrite Negative (Negative) 06/10/22 19:35 Urine Bilirubin Negative (Negative) 06/10/22 19:35 Urine Urobilinogen Negative (Negative) 06/10/22 19:35 Ur Leukocyte Esterase 2+ (Negative) H 06/10/22 19:35 Urine WBC (Auto) >30 /hpf (0-5) H 06/10/22 19:35 Urine RBC (Auto) 0-4 /hpf (0-4) 06/10/22 19:35 U Hyaline Cast (Auto) 1-5 /lpf (0-5) 06/10/22 19:35 U Epithel Cells (Auto) 0-5 /lpf (0-5) 06/10/22 19:35 Urine Bacteria (Auto) 4+ (Negative) H 06/10/22 19:35 SARS-CoV-2 (PCR) NEGATIVE (Negative) 06/10/22 19:00 Influenza Type A (PCR) Negative (Neg) 06/10/22 19:00 Influenza Type B (PCR) Negative (Neg) 06/10/22 19:00 RSV (RT-PCR) Negative (Neg) 06/10/22 19:00 Impressions Chest X-Ray 06/10/22 18:13 XR chest 1V portable CLINICAL HISTORY: Sepsis. COMPARISON STUDY: Chest radiograph July 11, 2015. FINDINGS: Note is made of mild elevation the right hemidiaphragm. No consolidation is identified. Linear left basilar opacity favors atelectasis. Apparent hazy left basilar opacity is likely artifactual. There is an equivocal 1.2 cm right upper lobe nodule. There is no pneumothorax or pleural effusion. Cardiac size is normal. Mediastinal contours are normal. There is no evidence for pulmonary edema. IMPRESSION: 1. No acute cardiopulmonary findings. 2. Equivocal 1.2 cm right upper lobe nodule. This is likely artifactual. However, a nonemergent chest CT is recommended. 3. Linear left basilar opacity which favors atelectasis. ACT 112: Negative or not required by law. Electronically signed by: Finesse Beltran M.D. 06/10/2022 8:[address] head initial read: No ICH, mass effect or edema. No skull fracture CT chest initial read: No pulmonaryembolism. No acute abnormalityin the lungs. Atelectasis in the lower lobes. No pleural effusion or pneumothorax. Heart size is normal. No aortic dissection. Subacute appearing right anterior sixth rib fracture. CT abdomen pelvis initial read: The appendix is prominent measuring up to 1 cm. No significant inflammatorychanges however early appendicitis could still cause this appearance in the appropriate clinical setting. Cholecystectomyand hysterectomy. No acute abnormalityin the organs. EKG as per my interpretation : Rate 75, NSR, normal axis, no ischemia
--- NOTE | 2022-06-11 01:54 | Surgery Consultation ---
Date of Consultation June 11, 2022 Assessment & Plan (1) Nausea & vomiting: The patient has been admitted on the hospitalist service. We recommend proceeding as follows: Although the patient's appendix is slightly dilated on CAT scan there is no inflammatory changes noted on her CAT scan. At the time of my exam her abdominal exam was essentially benign as she had no rebound tenderness or guarding and only had some slight pain with very deep palpation in the right lower quadrant Recommend keeping the patient n.p.o. for the present time Provide analgesics Provide antiemetics Provide IV fluid for hydration measures Recommend following serial labs I discussed with the admitting service and they have already administered antibiotics in form of Rocephin and Flagyl which we will continue. The patient does not have convincing evidence of acute appendicitis at this time but we will continue to follow serial exams with further recommendations to follow following her clinical course as it unfolds Supervising Physician Co-Signing Physician Notes Dr. Dempsey progress note I did discuss the patient with Ameya Elias and also reviewed all of her studies It does not appear she has acute appendicitis I do not think she requires an operation at this point History of Present Illness History of Present Illness This is a 61-year-old female who suffered a mechanical fall at her house 2 days ago. She describes the fall as a mechanical fall as she slipped while she was trying to transfer from a lift chair to a wheelchair. She does not believe she hit her head. She did not lose consciousness. She did not have any preceding chest pain or shortness of breath. Patient notes that when she fell she fell on her right hand side striking her ribs. Since the fall she has "not felt right." Yesterday she did have some intermittent nausea and vomiting that she continues to not feel quite right she presented to the emergency department. At the present time she denies any headache or visual changes. She denies any shortness of breath. The patient does have pain along her lateral right chest wall where she fell. She does note some minor generalized abdominal pain. She notes that she has had prior surgeries in the form of a hysterectomy as well as a cholecystectomy. She denies any fevers, shakes, or chills. In the emergency department the patient had labs and imaging which I independently reviewed. A CT scan of the abdomen pelvis showed the patient had a prominent appearing appendix which measured up to 1 cm. There is no significant inflammatory changes around the appendix. A CT scan of the head showed no intracranial hemorrhage or skull fractures. A CT scan of the chest showed no evidence of pulmonary emboli. There was a subacute fracture noted of the right anterior sixth rib. No pleural effusion or pneumothorax was noted. Labs include a CBC were white blood cell count was 11.9. Hemoglobin, hematocrit, platelet count were normal. Chemistry profile showed sodium, potassium, were normal. BUN and creatinine were not elevated at 4 and 0.4. There is a slight elevation of the total bilirubin of 1.1 but LFTs were otherwise not elevated. Urinalysis was concerning for urinary tract infection. Patient was tested for influenza, RSV, and COVID all of which were negative. At the time of my interview she was resting comfortably in bed and she was in no distress. Allergies Allergy/AdvReac Type Severity Reaction Status Date / Time No Known Allergies Allergy Unknown Verified 06/10/22 22:49 Home Medications Medication Instructions Recorded Confirmed Type albuterol sulfate 90 mcg/actuation 2 puff inhalation Q4H PRN 06/11/18 06/10/22 History aerosol inhaler (Ventolin HFA) Shortness Of Breath dicyclomine 20 mg tablet 20 mg PO QID PRN Abdominal Pain 06/11/18 06/10/22 History fentanyl 100 mcg/hr transdermal 1 patch transdermal Q72H 06/11/18 06/10/22 History patch furosemide 20 mg tablet 20 mg PO DAILY PRN Edema 06/11/18 06/10/22 History latanoprost 0.005 % eye drops 1 drp OPB HS 06/11/18 06/10/22 History morphine 30 mg tablet,extended 30 mg PO Q4H PRN Pain 06/11/18 06/10/22 History release polyethylene glycol 3350 17 1 dose PO QAM 06/11/18 06/10/22 History gram/dose oral powder (Miralax) cyanocobalamin (vitamin B-12) 1,000 mcg PO QAM 09/14/20 06/10/22 History 1,000 mcg tablet (Vitamin B-12) hydroxyzine HCl 25 mg tablet 25 mg PO Q6H PRN Anxiety 10/07/20 06/10/22 History calcium carbonate 600 mg-vitamin 1 cap PO DAILY 06/10/22 06/10/22 History D3 5 mcg (200 unit) capsule (Calcium 600 + D(3)) fentanyl 75 mcg/hr transdermal 75 mcg topical Q72H 06/10/22 06/10/22 History patch fluticasone 250 mcg-salmeterol 50 1 inh inhalation BID 06/10/22 06/10/22 History mcg/dose blistr powdr for inhalation (Wixela Inhub) fluticasone propionate 50 2 spray intranasal DAILY 06/10/22 06/10/22 History mcg/actuation nasal spray,suspension metoprolol succinate 50 mg 50 mg PO DAILY 06/10/22 06/10/22 History tablet,extended release 24 hr naloxone 4 mg/actuation nasal spray 4 mg intranasal .DAILY/UD PRN 06/10/22 06/10/22 History Opiate Reversal ondansetron 8 mg disintegrating 8 mg translingual Q8H PRN Nausea 06/10/22 06/10/22 History tablet prednisone 5 mg tablet 5 - 10 mg PO DAILY 06/10/22 06/10/22 History triamcinolone acetonide 0.1 % 1 applic topical BID PRN .BACK 06/10/22 06/10/22 History topical ointment ERUPTION Patient History Medical History Anxiety Chronic neck and back pain Chronic obstructive pulmonary disease Chronic pain COPD (chronic obstructive pulmonary disease) Current every day smoker Glaucoma bilt eyes History of anesthesia reaction Difficulty waking up. 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 forth Surgical History History of ankle surgery L ankle triple fusion (pins in place) d/t RA History of bilateral tubal ligation History of cholecystectomy History of colonoscopy History of dilatation and curettage History of esophagogastroduodenoscopy (EGD) History of partial hysterectomy History of total left knee replacement (TKR) History of total right knee replacement (TKR) Hx of toe surgery "all ten toes were straightened" Status post cystoscopy with ureteral stent placement Status post wrist surgery bilt fusion (R wrist has plate in place) d/t RA Family History Father Family hx of colon cancer Family history of reaction to anesthesia slow to wake Social History Smoking Status: Current every day smoker Tobacco Type: E-cigarettes / Vaping Cigarettes Per Day: Vapes several times daily; Second Hand Exposure: No; Hx Alcohol Use: No Hx Substance Use: No Preferred Language: Czech Communication Ability: Effective Studio Producer Required: No Beliefs That Will Affect Care: None marital status: Current Living Situation: Family Current Living Situation Comment: patient has downstairs apartment. patient's sister and upstairs Other Information That Helps Us Care for You: No Feels Safe at Home: Yes Safety Concerns: Feels Safe At This Time Assistive Devices: Glasses and Wheelchair Review of Systems Constitutional: no fever and no chills Eyes: + corrective lenses Ear, Nose, Mouth, Throat: no ear pain Respiratory: no cough and no dyspnea Cardiovascular: + chest pain (Right-sided chest wall pain) Gastrointestinal: + abdominal pain, + nausea and + vomiting Genitourinary: no dysuria Musculoskeletal: no back pain Integumentary: no rash Neurologic: no localized weakness Physical Exam Physical Exam: Patient had point tenderness on the right anterior lateral portion of her chest wall were noted rib fractures are identified on CAT scan. Constitutional: WD/WN, vitals as above Eyes: Wears glasses ENMT: Ears: no hearing impairment Mouth: no oropharynx abnormality Neck: trachea midline Respiratory: normal respiratory effort; no respiratory distress and no labored breathing Cardiovascular: Rate/Rhythm: regular rate and regular rhythm Gastrointestinal (Abdomen): Abdomen is rotund and soft. It is nondistended and nonrigid. Bowel sounds are present. There is no rebound tenderness or guarding. With very deep palpation the patient only had minimal pain in the right lower quadrant. Musculoskeletal: No calf tenderness Skin: no rashes Neurologic: moves all extremities Psychiatric: A+Ox3, euthymic affect Results & Data ([facility]) Vital Signs (Past 12 Hours) Vital Signs Temp Pulse Pulse Resp BP BP Pulse Ox 06/10/22 22:30 89 22 132/85 93 06/10/22 22:30 132/85 06/10/22 21:52 77 14 104/69 95 06/10/22 21:00 88 18 121/62 88 L 06/10/22 20:30 81 18 127/77 91 06/10/22 20:00 75 18 116/88 92 06/10/22 19:30 96 H 18 125/79 95 06/10/22 19:21 95 06/10/22 19:20 83 18 132/82 95 06/10/22 18:00 90 16 96 06/10/22 17:48 67 15 92 06/10/22 17:45 36.9 C 101 H 20 128/80 94 O2 Del Method O2 Flow Rate 06/10/22 22:30 06/10/22 22:30 06/10/22 21:52 06/10/22 21:00 Nasal Cannula 2 06/10/22 20:30 06/10/22 20:00 06/10/22 19:30 06/10/22 19:21 Room Air 06/10/22 19:20 Room Air 06/10/22 18:00 06/10/22 17:48 06/10/22 17:45 Room Air PG Care Time/CCT Total # of Minutes Spent Total Time Spent with Patient: Total time spent is greater than 50% in coordination of care (as documented) at patient's floor/unit and/or counseling patient: Coding Level of Care Code 32815 Inpt Consult Level 5 Diagnoses Nausea & vomiting R11.2
[2022-06-11] MEDS: ACETAMINOPHEN 325 MG TAB PO PRN ×2 (02:37→20:28)
[2022-06-11] MEDS: MoRPHine SULFATE IR 15 MG TAB (IMMEDIATE RELEASE) PO PRN ×4 (02:38→20:28)
[2022-06-11] MEDS ORDERED: IPRATROPIUM BROMIDE NEB SOLN 0.02% 2.5 ML VIAL INH PRN (04:07)
[2022-06-11] MEDS ORDERED: hydrOXYzine HCl 25 MG TAB PO PRN (04:07)
[2022-06-11] MEDS ORDERED: LEVALBUTEROL 1.25MG/0.5ML NEB INH PRN (04:07)
[2022-06-11] MEDS ORDERED: NALOXONE NASAL SPRAY 4 MG ER HOMEPACK PRN (04:07)
[2022-06-11] MEDS ORDERED: XOPENEX/ATROVENT 1.25mg/0.5MG NEB COMBO NEB PRN (04:07)
[2022-06-11] MEDS ORDERED: DICYCLOMINE HCL 20 MG TAB PO PRN (04:07)
[2022-06-11] MEDS: LIDOCAINE 5% 1 PATCH TD SCH (04:14)
[2022-06-11] MEDS: PROMETHAZINE HCL 12.5 MG in SODIUM CHLORIDE 0.9% 50 ML IV PRN (04:43)
[2022-06-11] MEDS ORDERED: [UNRECOGNIZED DRUG - REMARK] SCH (04:59)
[2022-06-11] MEDS ORDERED: [UNRECOGNIZED DRUG - REMARK] SCH (04:59)
[2022-06-11] MEDS ORDERED: fentaNYL 100 MCG/HR TDSY TD SCH (05:00)
[2022-06-11] MEDS ORDERED: fentaNYL 75 MCG/HR TDSY TD SCH (05:00)
[2022-06-11] MEDS ORDERED: FLUARIX QUADRIVALENT 0.5 ML SYR IM ONE (06:02)
[2022-06-11] MEDS ORDERED: PNEUMOCOCCAL POLYSACCHARIDES 25 MCG/0.5 ML VIAL/SYR IM ONE (06:02)
[2022-06-11] MEDS: LATANOPROST 0.005% OP SOLN 2.5 ML BTL OPB SCH ×2 (06:09→20:25)
[2022-06-11] MEDS: metroNIDAZOLE 500 MG/100 ML BAG IV SCH ×3 (06:12→21:04)
--- NOTE | 2022-06-11 06:26 | Surgery Progress Note ---
Date of Service June 11, 2022 Assessment & Plan (1) Nausea & vomiting: Plan: Patient with mildly dilated appendix No evidence of inflammation Exam is essentially normal this morning We will give her clear liquids and continue to assess Admission and Anticipated Discharge Date Admission Date: June 11, 2022 Subjective Patient is awake and alert She is not complaining of any abdominal pain She apparently does have some nausea Review of Systems Review of Systems: All systems reviewed & are unremarkable except as noted in HPI & below Physical Exam Physical Exam: Her abdomen is flat and soft She has no significant tenderness in the right lower quadrant Constitutional: well developed and well nourished; no acute distress Eyes: + anicteric sclerae Respiratory: normal respiratory effort; no respiratory distress Cardiovascular: Rate/Rhythm: regular rate Gastrointestinal (Abdomen): See above Musculoskeletal: Head/Neck/Chest: head atraumatic Skin: no rashes, warm and dry Neurologic: awake Psychiatric: Orientation: alert Results & Data ([facility]) Vital Signs (Past 12 Hours) Vital Signs Temp Pulse Pulse Resp BP BP Pulse Ox 06/11/22 03:40 06/11/22 03:40 36.7 C 84 16 120/65 98 06/11/22 03:00 76 17 93 06/11/22 02:37 80 15 97 06/11/22 02:37 123/75 06/11/22 02:30 66 13 06/11/22 02:30 99/69 L 06/11/22 02:00 88 20 06/11/22 02:00 124/72 06/11/22 01:30 76 16 06/11/22 01:30 115/72 06/11/22 01:00 91 H 12 97 06/11/22 01:00 108/68 06/11/22 00:30 75 17 06/11/22 00:30 98/63 L 06/11/22 00:15 107/73 06/11/22 00:15 76 19 96 06/11/22 00:00 98 06/10/22 23:30 88 20 92 06/10/22 23:30 128/78 06/10/22 23:00 85 14 06/10/22 23:00 125/88 06/10/22 22:30 89 22 132/85 93 06/10/22 22:30 132/85 06/10/22 21:52 77 14 104/69 95 06/10/22 21:00 88 18 121/62 88 L 06/10/22 20:30 81 18 127/77 91 06/10/22 20:00 75 18 116/88 92 06/10/22 19:30 96 H 18 125/79 95 06/10/22 19:21 95 06/10/22 19:20 83 18 132/82 95 O2 Del Method O2 Flow Rate 06/11/22 03:40 Room Air 06/11/22 03:40 Room Air 06/11/22 03:00 06/11/22 02:37 06/11/22 02:37 06/11/22 02:30 06/11/22 02:30 06/11/22 02:00 06/11/22 02:00 06/11/22 01:30 06/11/22 01:30 06/11/22 01:00 06/11/22 01:00 06/11/22 00:30 06/11/22 00:30 06/11/22 00:15 06/11/22 00:15 06/11/22 00:00 06/10/22 23:30 06/10/22 23:30 06/10/22 23:00 06/10/22 23:00 06/10/22 22:30 06/10/22 22:30 06/10/22 21:52 06/10/22 21:00 Nasal Cannula 2 06/10/22 20:30 06/10/22 20:00 06/10/22 19:30 06/10/22 19:21 Room Air 06/10/22 19:20 Room Air PG Care Time/CCT Total # of Minutes Spent Total Time Spent with Patient: Total time spent is greater than 50% in coordination of care (as documented) at patient's floor/unit and/or counseling patient: Coding Level of Care Code 16470 Inpt Consult Level 3 Diagnoses Nausea & vomiting R11.2
[2022-06-11 06:34] LABS: Basophils # (auto) 0.04 K/uL (0-0.2); Basophils % (auto) 0.5 %; Eosinophils # (auto) 0.11 K/uL (0-0.50); Eosinophils % (auto) 1.3 %; Hematocrit (blood only) 37.9 % (34.1-44.9); Hemoglobin 12.2 g/dl (12.0-16.0); Immature Granulocytes # (auto) 0.03 K/uL (0.00-0.02); Immature Granulocytes % (auto) 0.3 %; Lymphocytes # (auto) 1.62 K/uL (1.2-3.4); Lymphocytes % (auto) 18.4 %; Mean Corpuscular Hgb Conc 32.2 g/dL (32.0-36.0); Mean Corpuscular Volume 93.3 fL (80.0-100.0); Mean Platelet Volume 8.6 fL (9.4-12.3); Monocytes # (auto) 0.65 K/uL (0.24-0.82); Monocytes % (auto) 7.4 %; Neutrophils # (auto) 6.35 K/uL (1.4-6.5); Neutrophils % (auto) 72.1 %; Platelet Count 242 K/uL (130-400); RDW Coefficient of Variation 13.3 % (11.5-14.5); RDW Standard Deviation 45.8 fL (36.4-46.3); Red Blood Count 4.06 M/uL (3.93-5.22)
--- NOTE | 2022-06-11 07:01 | CT Scan Report ---
CT head/brain wo con CLINICAL HISTORY: 61 years-old Female with quach , trauma. Acute headache status post trauma TECHNIQUE: Multiple axial CT images of the head were obtained without contrast. A dose lowering tech nique was utilized adhering to the principles of ALARA. COMPARISON: 03/08/2012 FINDINGS: No acute intracranial hemorrhage, midline shift, intracranial mass, hydrocephalus, territorial ischem ia or abnormal extra-axial collection. Mildly motion degraded exam. A portion of the study was then r epeated. Cerebral vascular calcifications. The calvarium is intact. Trace mastoid effusions. Paranasal sinuses are clear. Unremarkable soft tis sues and orbits. IMPRESSION: No acute intracranial abnormality or calvarial fracture. ACT 112: Negative or not required by law. The above report was generated using voice recognition software. It may contain grammatical, syntax o r spelling errors. Electronically signed by: Monster Gurrola M.D. 06/11/2022 7:00 AM
[2022-06-11 07:09] LABS: BUN Creatinine Ratio 6.4 (10-20); Calcium 8.4 mg/dl (8.5-10.1); Creatinine Clr Calc Pharmacy 130.5 ml/min; Est GFR (African American) 125.3 ml/min; Est GFR (Non-African American) 108.1 ml/min; Potassium 3.6 mmol/L (3.5-5.1)
--- NOTE | 2022-06-11 09:10 | CT Scan Report ---
CT SCAN OF THE ABDOMEN AND PELVIS WITH IV CONTRAST CLINICAL HISTORY: Generalized abdominal pain. COMPARISON STUDY: Abdominal CT dated 07/12/2015. TECHNIQUE: Following the IV administration of 113 cc of Optiray 320, CT scan of the abdomen and pelv is is performed from the lung bases to the proximal femora. Images are reviewed in the axial, sagitta l, and coronal planes. IV contrast was administered without complication. A dose lowering technique w as utilized adhering to the principles of ALARA. The examination is degraded by motion artifact, as w ell as by streak artifact from the arms which could not be elevated above the abdomen. CT DOSE: 2623.67 mGy.cm FINDINGS: Lung bases: The heart is normal in size and without pericardial effusion. The lung bases are clear no ting dependent atelectasis. Liver: The contrast-enhanced liver is normal in size, contour, and attenuation. There is no intrahepa tic biliary ductal dilatation. The hepatic veins and portal veins are patent. Gallbladder: Surgically absent noting clips in the gallbladder fossa. Spleen: Normal in size and attenuation. Pancreas: Unremarkable. Adrenal glands: Unremarkable. Kidneys: The contrast enhanced kidneys the lesser cortical atrophy and are without hydronephrosis. Th e kidneys enhance symmetrically. Scattered subcentimeter cortical hypodensities likely represent cyst s but are too small for definitive characterization. Abdominal vasculature: The abdominal aorta is normal in course and caliber noting advanced atheroscle rotic calcification. Bowel: There are scattered colonic diverticula without CT evidence of acute diverticulitis. No bowel obstruction is seen. The appendix is dilated and fluid-filled measuring 9 mm. There is minimal surro unding infiltration, and the caliber has significantly increased as compared to 2015. Peritoneum: There is no intraperitoneal free air or abdominal ascites. Lymphadenopathy: None. Pelvic viscera: The bladder is distended but otherwise normal in appearance. The uterus is surgically absent. No adnexal lesion is seen. Surgical clips are noted in the posterior pelvis. Skeletal structures: The skeletal structures are osteopenic. No lytic or blastic lesions are seen. Th ere is a subacute appearing right anterior 6th rib fracture. IMPRESSION: 1. Findings are suspicious for mild acute appendicitis. There is only minimal inflammatory change. Th e appendix has significantly increased in caliber as compared to 2015, and underlying mucocele could also potentially have this appearance. Surgical evaluation is advised. 2. There is no evidence of abscess or perforation. 3. There is a subacute appearing right anterior 6th rib fracture. Correlate for point tenderness. 4. Additional findings as above. ACT 112: Negative or not required by law. Electronically signed by: Elier Shultz M.D. 06/11/2022 9:09 AM
--- NOTE | 2022-06-11 09:19 | CT Scan Report ---
CT ANGIOGRAM OF THE CHEST CLINICAL HISTORY: Atypical chest pain. Dyspnea. COMPARISON STUDY: Chest CT dated 09/11/2013. Chest x-ray dated 06/10/2022. TECHNIQUE: Following the IV administration of 113 cc of Optiray 320, CT angiogram of the chest was pe rformed from the upper abdomen to the thoracic inlet utilizing the pulmonary embolus protocol. Images are reviewed in the axial, sagittal, and coronal planes. 3-D MIPS images are created and assessed. I V contrast was administered without complication. A dose lowering technique was utilized adhering to the principles of ALARA. The examination is degraded by motion artifact, as well as by streak artifa ct from the arms which could not be elevated above the chest. FINDINGS: Thyroid: Imaged portions of the thyroid gland are normal in size and attenuation. Thoracic aorta: There is mild atherosclerotic calcification of the thoracic aorta, which is normal in caliber and demonstrates standard 3-vessel arch anatomy. No dissection is seen. Pulmonary vasculature: The pulmonary trunk is normal in caliber. There are no filling defects identif ied in main, lobar, or segmental pulmonary branches to suggest pulmonary embolus. Heart: The heart is top normal in size and without pericardial effusion. Lungs and pleural spaces: There is no airspace consolidation typical for pneumonia or pleural effusio n. Dependent atelectasis is noted at both lung bases. A small fat-containing Bochdalek hernia is seen on the right. The trachea and central airways are clear. Mediastinum: There is no mediastinal lymphadenopathy. Brandee: Clear. Axillae: There is no axillary lymphadenopathy. Upper abdomen: Cholecystectomy clips are noted. Partially visualized upper abdominal viscera is other latif within normal limits. Skeletal structures: The skeletal structures are osteopenic. No lytic or blastic bony lesions are see n. There is a subacute appearing right anterior 6th rib fracture. IMPRESSION: 1. There is no evidence of pulmonary embolus in the main, lobar, or segmental pulmonary arteries. 2. There is no airspace consolidation or pleural effusion. 3. There is a subacute appearing right anterior 6th rib fracture. Correlate for point tenderness. 4. Additional findings as above. ACT 112: Negative or not required by law. Electronically signed by: Elier Shultz M.D. 06/11/2022 9:17 AM
[2022-06-11] MEDS: [UNRECOGNIZED DRUG - REMARK] SCH ×3 (09:53→21:51)
[2022-06-11] MEDS: CALCIUM 600MG + VIT D 400 IU TAB PO SCH ×2 (09:53→10:01)
[2022-06-11] MEDS: [UNRECOGNIZED DRUG - REMARK] SCH ×3 (09:53→21:50)
[2022-06-11] MEDS: FLUTICASONE PROPIONATE NA SPR 16 GM BTL SCH (09:54)
[2022-06-11] MEDS: FLUTICASONE/VILANTEROL 200/25MCG 14 PUFFS/INHALER INH SCH (09:54)
[2022-06-11] MEDS: DOCUSATE SODIUM/SENNA 50/8.6MG TAB PO SCH (09:55)
[2022-06-11] MEDS: CYANOCOBALAMIN (B-12) 500 MCG TABLET PO SCH (09:55)
[2022-06-11] MEDS: ENOXAPARIN INJ 40 MG/0.4 ML SYR SQ SCH (09:55)
[2022-06-11] MEDS: POLYETHYLENE (MIRALAX) 17 GM PACK PO SCH (09:55)
[2022-06-11] MEDS: predniSONE 5 MG TAB PO SCH (09:56)
[2022-06-11] MEDS: METOPROLOL SUCC 50MG EXT REL TAB PO SCH (09:59)
[2022-06-11] MEDS: cefTRIAXone SODIUM 1,000 MG in DEXTROSE 5% 50 ML IV SCH (10:01)
[2022-06-11] MEDS: ONDANSETRON INJ 2 MG/ML 2 ML VIAL IV PRN (13:38)
--- NOTE | 2022-06-11 14:58 | Hospitalist Progress Note ---
Date of Service June 11, 2022 Assessment & Plan (1) Abdominal pain: Plan 61-year-old lady with PMH of COPD, HTN, rheumatoid arthritis on chronic prednisone treatment, chronic pain on narcotics, anxiety disorder and past tobacco abuse presented to our ED 06/10 with complaint of increasing weakness at home since 2 days ago [employer] and fall resulting in some head trauma/pleuritic right-sided chest pain. Denied any fever or cough. Reported acute abdominal pain with emesis and UTI symptoms. Admits to occasional coughing with water/fluid intake with patient attributes to her neck issues, recommended aspiration precaution. She is being managed for the following: Transient hypoxemia, likely secondary to traumatic right rib fractures secondary to mechanical fall Underlying COPD O2 sats 88% at 1 point during ER stay, has been on room air otherwise. Admitting CXR: Equivocal 1.2 cm RUL nodule, nonemergent chest CT is recommended. Admitting head CT: No acute intracranial abnormalities or fracture. Admitting CTA chest: No PE. No airspace consolidation or pleural effusion. Subacute appearing right anterior sixth rib fracture. At admission, afebrile, WBC minimally elevated likely secondary to acute distress, Pro-Porfirio negative. PT/OT, fall precaution, continue monitoring. COPD stable. No wheezing. Continue with incentive spirometer. Lidoderm patch. Abdominal pain with RLQ tenderness Likely Mild acute appendicitis Nausea and vomiting No sepsis POA, presentation as above Admitting CTAP: Suggestive of mild acute appendicitis, surgical evaluation advised. Subacute appearing right anterior sixth rib fracture. Continue with Rocephin 06/10 and metronidazole 06/11 Patient reports improvement in her RLQ pain and reports improvement in her nausea and vomiting General surgery on board, advancing diet, currently on clear liquid, tolerating diet. UTI: Patient on antibiotic for different purpose, follow-up urine culture. Gram-negative bacilli preliminary. Other chronic medical conditions: HTN, RA on chronic prednisone treatment, possible aspiration risks, chronic pain on narcotics, anxiety disorder at baseline, ambulatory dysfunction, past tobacco abuse --->> continue with/resume home meds as and when appropriate. Aspiration precaution. Speech eval. PT/OT. DVT prophylaxis Lovenox subcu DNR/DNI Disposition: PT/OT, CM to assist with DC planning. Admission and Anticipated Discharge Date Admission Date: June 11, 2022 Subjective Patient seen and examined at bedside as a follow-up of nausea and vomiting/mild acute appendicitis and acute hypoxemic respiratory failure secondary to traumatic right rib fractures secondary to mechanical fall. Patient was lying in bed, on room air, NAD, reports feeling better, is started on clear liquid diet per surgery, tolerating diet well, reports pain under control, denies shortness of breath, denies headache or dizziness, denies other review of symptoms. Patient was working with occupational therapy. Physical Exam Physical Exam: GENERAL: Alert and oriented x3. NAD, on RA. HEENT: No pallor, no icterus. Pupils equal, round and reactive to light. Oral mucosa moist. NECK: No JVD, no neck masses. HEART: S1 and S2 heard. Regular rate and rhythm. No murmur, no gallop. RESPIRATORY SYSTEM: Normal AP diameter. No accessory muscle use. No wheezing, no crackles. ABDOMEN: Soft, bowel sounds present, nontender rlq, no distention. CENTRAL NERVOUS SYSTEM: No facial droop. Speech is clear. Obeys simple commands. Moves extremities. EXTREMITIES: No edema, no erythema seen. Results & Data Results & Data ([facility]) Vital Signs (Past 12 Hours) Vital Signs Temp Pulse Pulse Resp BP Pulse Ox O2 Del Method 06/11/22 08:05 Room Air 06/11/22 10:47 101/67 06/11/22 09:59 79 95/57 L 06/11/22 07:46 36.4 C L 81 18 105/70 93 Room Air 06/11/22 03:40 Room Air 06/11/22 03:40 36.7 C 84 16 120/65 98 Room Air 06/11/22 03:00 76 17 93
[2022-06-12] MEDS: PROMETHAZINE HCL 12.5 MG in SODIUM CHLORIDE 0.9% 50 ML IV PRN (02:29)
[2022-06-12] MEDS: MoRPHine SULFATE IR 15 MG TAB (IMMEDIATE RELEASE) PO PRN ×5 (02:30→21:40)
[2022-06-12] MEDS: metroNIDAZOLE 500 MG/100 ML BAG IV SCH ×3 (05:34→21:41)
--- NOTE | 2022-06-12 05:56 | Electrocardiogram Report ---
Test Reason : Blood Pressure : / mmHG Vent. Rate : 075 BPM Atrial Rate : 075 BPM P-R Int : 150 ms QRS Dur : 084 ms QT Int : 404 ms P-R-T Axes : 070 022 059 degrees QTc Int : 451 ms Normal sinus rhythm with sinus arrhythmia Normal ECG When compared with ECG of 11-JUL-2015 23:01, No significant change was found Confirmed by Devin Cuenca ([id number]) on 06/12/2022 5:55:47 AM Referred By: REFERRED SELF Confirmed By:Devin Cuenca
[2022-06-12] MEDS: ACETAMINOPHEN 325 MG TAB PO PRN (06:44)
--- NOTE | 2022-06-12 07:06 | Surgery Progress Note ---
Date of Service June 12, 2022 Assessment & Plan (1) Nausea & vomiting: Plan: It is doubtful the patient has acute appendicitis She does have nausea but does drink some-I have advanced her to full liquids GI evaluation may be helpful She does not need urgent surgical intervention May consider rescan in weeks as outpatient with primary care follow-up Admission and Anticipated Discharge Date Admission Date: June 11, 2022 Subjective Patient is awake and alert She apparently does have some nausea She is drinking some clear liquids She has generalized aches in her joints for which they gave her pain medication, she has no right lower quadrant pain Seems to complain of right lower chest upper abdomen flank type pain-has had cholecystectomy Review of Systems Review of Systems: All systems reviewed & are unremarkable except as noted in HPI & below Physical Exam Physical Exam: Her abdomen is flat and soft She has no significant tenderness in the right lower quadrant Constitutional: well developed and well nourished; no acute distress Eyes: + anicteric sclerae Respiratory: normal respiratory effort; no respiratory distress Cardiovascular: Rate/Rhythm: regular rate Gastrointestinal (Abdomen): See above Musculoskeletal: Head/Neck/Chest: head atraumatic Skin: no rashes, warm and dry Neurologic: awake Psychiatric: Orientation: alert Results & Data ([facility]) Vital Signs (Past 12 Hours) Vital Signs Temp Pulse Pulse Resp BP BP Pulse Ox 06/12/22 02:34 79 16 133/79 97 06/11/22 22:53 36.7 C 82 16 95/61 L 92 06/11/22 20:35 06/11/22 20:35 36.6 C 79 16 104/68 93 O2 Del Method 06/12/22 02:34 Room Air 06/11/22 22:53 Room Air 06/11/22 20:35 Room Air 06/11/22 20:35 Room Air PG Care Time/CCT Total # of Minutes Spent Total Time Spent with Patient: Total time spent is greater than 50% in coordination of care (as documented) at patient's floor/unit and/or counseling patient: Coding Level of Care Code 61825 Inpt Consult Level 3 Diagnoses Nausea & vomiting R11.2
[2022-06-12 07:38] LABS: Hematocrit (blood only) 37.5 % (34.1-44.9); Hemoglobin 11.9 g/dl (12.0-16.0); Mean Corpuscular Hemoglobin 29.6 pg (25.0-34.0); Mean Corpuscular Hgb Conc 31.7 g/dL (32.0-36.0); Mean Corpuscular Volume 93.3 fL (80.0-100.0); Mean Platelet Volume 8.8 fL (9.4-12.3); Platelet Count 233 K/uL (130-400); RDW Coefficient of Variation 13.4 % (11.5-14.5); RDW Standard Deviation 45.8 fL (36.4-46.3); Red Blood Count 4.02 M/uL (3.93-5.22); White Blood Count 6.46 K/ul (4.8-10.8)
[2022-06-12 07:55] LABS: BUN Creatinine Ratio 7.5 (10-20); Creatinine Clr Calc Pharmacy 153.3 ml/min; Est GFR (African American) 132.1 ml/min; Potassium 3.4 mmol/L (3.5-5.1)
[2022-06-12] MEDS: [UNRECOGNIZED DRUG - REMARK] SCH ×2 (08:07→16:28)
[2022-06-12] MEDS: [UNRECOGNIZED DRUG - REMARK] SCH ×2 (08:07→16:27)
[2022-06-12] MEDS ORDERED: POTASSIUM CHLORIDE CRTAB 20 MEQ TABCR PO STA (08:38)
[2022-06-12] MEDS: cefTRIAXone SODIUM 1,000 MG in DEXTROSE 5% 50 ML IV SCH (08:48)
[2022-06-12] MEDS: FLUTICASONE PROPIONATE NA SPR 16 GM BTL SCH (09:08)
[2022-06-12] MEDS: LIDOCAINE 5% 1 PATCH TD SCH (09:10)
[2022-06-12] MEDS: CYANOCOBALAMIN (B-12) 500 MCG TABLET PO SCH (09:14)
[2022-06-12] MEDS: CALCIUM 600MG + VIT D 400 IU TAB PO SCH (09:14)
[2022-06-12] MEDS: ENOXAPARIN INJ 40 MG/0.4 ML SYR SQ SCH (09:15)
[2022-06-12] MEDS: DOCUSATE SODIUM/SENNA 50/8.6MG TAB PO SCH (09:15)
[2022-06-12] MEDS: FLUTICASONE/VILANTEROL 200/25MCG 14 PUFFS/INHALER INH SCH (09:20)
[2022-06-12] MEDS: METOPROLOL SUCC 50MG EXT REL TAB PO SCH (09:21)
[2022-06-12] MEDS: POLYETHYLENE (MIRALAX) 17 GM PACK PO SCH (09:21)
[2022-06-12] MEDS: ADVANCED PROBIOTIC 1250 MG CAPSULE PO SCH (09:21)
[2022-06-12] MEDS: predniSONE 5 MG TAB PO SCH (09:22)
--- NOTE | 2022-06-12 14:52 | Hospitalist Progress Note ---
Date of Service June 12, 2022 Assessment & Plan (1) Abdominal pain: Plan 61-year-old lady with PMH of COPD, HTN, rheumatoid arthritis on chronic prednisone treatment, chronic pain on narcotics, anxiety disorder and past tobacco abuse presented to our ED 06/10 with complaint of increasing weakness at home since 2 days ago [employer] and fall resulting in some head trauma/pleuritic right-sided chest pain. Denied any fever or cough. Reported acute abdominal pain with emesis and UTI symptoms. Admits to occasional coughing with water/fluid intake with patient attributes to her neck issues, recommended aspiration precaution. She is being managed for the following: Transient hypoxemia, likely secondary to traumatic right rib fractures secondary to mechanical fall Underlying COPD O2 sats 88% at 1 point during ER stay, has been on room air otherwise. Admitting CXR: Equivocal 1.2 cm RUL nodule, nonemergent chest CT is recommended. Admitting head CT: No acute intracranial abnormalities or fracture. Admitting CTA chest: No PE. No airspace consolidation or pleural effusion. Subacute appearing right anterior sixth rib fracture. At admission, afebrile, WBC minimally elevated likely secondary to acute distress, Pro-Porfirio negative. PT/OT, fall precaution, continue monitoring. COPD stable. No wheezing. Continue with incentive spirometer. Lidoderm patch. Continue home pain management. Abdominal pain with RLQ tenderness Likely Mild acute appendicitis Nausea and vomiting No sepsis POA, presentation as above Admitting CTAP: Suggestive of mild acute appendicitis, surgical evaluation advised. Subacute appearing right anterior sixth rib fracture. Continue with Rocephin 06/10 and metronidazole 06/11 Patient reports improvement in her RLQ pain and reports improving nausea but occasional nausea with diet. General surgery on board, advancing diet, currently on full liquid. UTI: Patient on antibiotic for different purpose, follow-up urine culture. Gram-negative bacilli preliminary. Other chronic medical conditions: HTN, RA on chronic prednisone treatment, possible aspiration risks, chronic pain on narcotics, anxiety disorder at baseline, ambulatory dysfunction, past tobacco abuse --->> continue with/resume home meds as and when appropriate. Aspiration precaution. PT/OT. Speech evaluated 06/11, aspiration and reflux precautions. Mouth care. "moist" easy to chiew diet w/ thins. DVT prophylaxis Lovenox subcu DNR/DNI Disposition: PT/OT, CM to assist with DC planning. Likely DC with improvement in the diet and nausea/vomiting. Admission and Anticipated Discharge Date Admission Date: June 11, 2022 Subjective Patient seen and examined at bedside as a follow-up of nausea and vomiting/mild acute appendicitis and acute hypoxemic respiratory failure secondary to traumatic right rib fractures secondary to mechanical fall. Patient was lying in bed, on room air, NAD, reports feeling better, advance to full liquid diet per surgery, has some nausea and dry heaves occasionally but reports getting better, reports RLQ pain better than what she came in with, denies shortness of breath, denies headache or dizziness, denies other review of symptoms. Patient complains improving right lower chest pain. Physical Exam Physical Exam: GENERAL: Alert and oriented x3. NAD, on RA. HEENT: No pallor, no icterus. Pupils equal, round and reactive to light. Oral mucosa moist. NECK: No JVD, no neck masses. HEART: S1 and S2 heard. Regular rate and rhythm. No murmur, no gallop. RESPIRATORY SYSTEM: Normal AP diameter. No accessory muscle use. No wheezing, no crackles. ABDOMEN: Soft, bowel sounds present, nontender rlq, no distention. CENTRAL NERVOUS SYSTEM: No facial droop. Speech is clear. Obeys simple commands. Moves extremities. EXTREMITIES: No edema, no erythema seen. Results & Data Results & Data ([facility]) Vital Signs (Past 12 Hours) Vital Signs Temp Pulse Resp BP Pulse Ox O2 Del Method 06/12/22 07:30 Room Air 06/12/22 08:17 36.8 C 78 24 131/76 93 Room Air
[2022-06-12] MEDS: LATANOPROST 0.005% OP SOLN 2.5 ML BTL OPB SCH (21:41)
[2022-06-12] MEDS ORDERED: LOPERAMIDE HCL 2 MG CAP PO STA (22:35)
[2022-06-13] MEDS ORDERED: fentaNYL 100 MCG/HR TDSY TD SCH ×3 (00:45→11:30)
[2022-06-13] MEDS ORDERED: fentaNYL 75 MCG/HR TDSY TD SCH ×3 (00:45→11:30)
[2022-06-13] MEDS: MoRPHine SULFATE IR 15 MG TAB (IMMEDIATE RELEASE) PO PRN ×5 (01:47→23:31)
[2022-06-13] MEDS: [UNRECOGNIZED DRUG - REMARK] SCH ×2 (01:48→08:02)
[2022-06-13] MEDS: [UNRECOGNIZED DRUG - REMARK] SCH ×2 (01:49→08:02)
[2022-06-13] MEDS: ONDANSETRON INJ 2 MG/ML 2 ML VIAL IV PRN (02:35)
--- NOTE | 2022-06-13 06:22 | Surgery Progress Note ---
Date of Service June 13, 2022 Assessment & Plan (1) Nausea & vomiting: Plan: Patient continues with occasional nausea now diarrhea Upper abdominal discomfort No evidence of acute appendicitis Will ask Jorge BURNS to see the patient No plan for surgical intervention Admission and Anticipated Discharge Date Admission Date: June 11, 2022 Subjective Patient with upper abdominal pain Did receive some narcotics for back pain No right lower quadrant pain or lower abdominal pain Having relatively severe diarrhea now She has seen Dr. Ruiz in the past for GI Review of Systems Review of Systems: All systems reviewed & are unremarkable except as noted in HPI & below Physical Exam Physical Exam: Her abdomen is flat and soft-she does have some sensitivity in the upper abdomen to palpation but no lower abdominal pain She has no significant tenderness in the right lower quadrant She has very active vigorous bowel sounds Constitutional: well developed and well nourished; no acute distress Eyes: + anicteric sclerae Respiratory: normal respiratory effort; no respiratory distress Cardiovascular: Rate/Rhythm: regular rate Gastrointestinal (Abdomen): See above Musculoskeletal: Head/Neck/Chest: head atraumatic Skin: no rashes, warm and dry Neurologic: awake Psychiatric: Orientation: alert Results & Data ([facility]) Vital Signs (Past 12 Hours) Vital Signs Temp Pulse Resp BP Pulse Ox O2 Del Method 06/12/22 22:24 36.5 C 77 18 118/75 93 Room Air PG Care Time/CCT Total # of Minutes Spent Total Time Spent with Patient: Total time spent is greater than 50% in coordination of care (as documented) at patient's floor/unit and/or counseling patient: Coding Level of Care Code 49422 Subseq Hosp Care Lvl 3 Diagnoses Nausea & vomiting R11.2
[2022-06-13] MEDS: metroNIDAZOLE 500 MG/100 ML BAG IV SCH ×3 (06:23→21:58)
[2022-06-13] MEDS ORDERED: CHECK fentaNYL PATCH PLACEMENT SCH (08:00)
[2022-06-13] MEDS: PROMETHAZINE HCL 12.5 MG in SODIUM CHLORIDE 0.9% 50 ML IV PRN (08:02)
[2022-06-13] MEDS: FLUTICASONE/VILANTEROL 200/25MCG 14 PUFFS/INHALER INH SCH (08:42)
[2022-06-13] MEDS: CYANOCOBALAMIN (B-12) 500 MCG TABLET PO SCH (08:43)
[2022-06-13] MEDS: FLUTICASONE PROPIONATE NA SPR 16 GM BTL SCH (08:43)
[2022-06-13] MEDS: ENOXAPARIN INJ 40 MG/0.4 ML SYR SQ SCH (08:43)
[2022-06-13] MEDS: DOCUSATE SODIUM/SENNA 50/8.6MG TAB PO SCH (08:44)
[2022-06-13] MEDS: predniSONE 5 MG TAB PO SCH (08:44)
[2022-06-13] MEDS: ADVANCED PROBIOTIC 1250 MG CAPSULE PO SCH (08:44)
[2022-06-13] MEDS: POLYETHYLENE (MIRALAX) 17 GM PACK PO SCH (08:44)
[2022-06-13] MEDS: LIDOCAINE 5% 1 PATCH TD SCH (08:44)
[2022-06-13] MEDS: METOPROLOL SUCC 50MG EXT REL TAB PO SCH (08:44)
[2022-06-13] MEDS: CALCIUM 600MG + VIT D 400 IU TAB PO SCH (08:46)
[2022-06-13] MEDS: cefTRIAXone SODIUM 1,000 MG in DEXTROSE 5% 50 ML IV SCH (08:48)
--- NOTE | 2022-06-13 11:39 | Gastrointestinal Consultation ---
Date of Consultation June 13, 2022 Assessment & Plan (1) Nausea & vomiting: Likely gastritis related to ongoing prednisone. Also considered gastroparesis, viral gastroenteritis. Pt has an appetite for bland solids. (2) Diarrhea: This may represent antibiotic associated diarrhea as it began after ceftriaxone was initiated vs. viral gastroenteritis. C-diff is (-). Will check stool culture. Plan She is a difficult intubation and there is limited evidence to suggest ulcer dx so at this point, recommend tx w antiemetics and advancing diet. If diarrhea and or nausea do not improve over the weekend then will consider EGD/Colonoscopy next week. Would continue antiemetics and OK to use Imodium as stool (-) for C-diff. Will order Imodium BID prn diarrhea. Watch for stool culture results. Supervising Physician Co-Signing Physician Notes PE as documented Await stool cultures results She is on chronic prednisone and has ruq pain but has rib fractures in that area. Agree with documented plan. History of Present Illness Reason for Consultation: Abdominal pain Attending Physician: Pillo Sue MD History of Present Illness Ms. Alves is a 61 yr old female pt of Dr. Araya w a hx of severe rheumatoid arthritis (maintained on prednisone currently 10mg/day), no longer ambulatory, COPD, who presented to the ED on Friday for nausea/vomiting. Initially noted to have acute respiratory failure thought secondary to hypoventilation from rib fx's now perfusing well on room air. Also dx'ed w UTI on arrival on Ceftriaxone since 06/11. She began w diarrhea yesterday 06/12/22. In addition to the above acute GI issues, she reports having had ongoing issues with poor appetite and intermittent RUQ discomfort, though has also had recent rt anterior rib fxs. She is unable to tell me if the pain in the RUQ is worse on an empty stomach or worse after eating or even if it is unchanged by eating. She also mentions a feeling of early satiety/fullness/epigastric pressure but isn't sure how long that has been present. CT on arrival suggested possible appendicitis but pt was evaluated by surgery who did not feel that she has appendicitis. Vomiting has consisted of liquids an d she is now having some dry heaving. She is currently resting in bed, is awake, alert, oriented, on a full liquid diet and requests to be able to eat small amts of bland foods. She passed 2 loose/liquid BMs thus far today. C-diff was (-). Allergies Allergy/AdvReac Type Severity Reaction Status Date / Time No Known Allergies Allergy Unknown Verified 06/10/22 22:49 Home Medications Medication Instructions Recorded Confirmed Type albuterol sulfate 90 mcg/actuation 2 puff inhalation Q4H PRN 06/11/18 06/10/22 History aerosol inhaler (Ventolin HFA) Shortness Of Breath dicyclomine 20 mg tablet 20 mg PO QID PRN Abdominal Pain 06/11/18 06/10/22 History fentanyl 100 mcg/hr transdermal 1 patch transdermal Q72H 06/11/18 06/10/22 History patch furosemide 20 mg tablet 20 mg PO DAILY PRN Edema 06/11/18 06/10/22 History latanoprost 0.005 % eye drops 1 drp OPB HS 06/11/18 06/10/22 History morphine 30 mg tablet,extended 30 mg PO Q4H PRN Pain 06/11/18 06/10/22 History release polyethylene glycol 3350 17 1 dose PO QAM 06/11/18 06/10/22 History gram/dose oral powder (Miralax) cyanocobalamin (vitamin B-12) 1,000 mcg PO QAM 09/14/20 06/10/22 History 1,000 mcg tablet (Vitamin B-12) hydroxyzine HCl 25 mg tablet 25 mg PO Q6H PRN Anxiety 10/07/20 06/10/22 History calcium carbonate 600 mg-vitamin 1 cap PO DAILY 06/10/22 06/10/22 History D3 5 mcg (200 unit) capsule (Calcium 600 + D(3)) fentanyl 75 mcg/hr transdermal 75 mcg topical Q72H 06/10/22 06/10/22 History patch fluticasone 250 mcg-salmeterol 50 1 inh inhalation BID 06/10/22 06/10/22 History mcg/dose blistr powdr for inhalation (Wixela Inhub) fluticasone propionate 50 2 spray intranasal DAILY 06/10/22 06/10/22 History mcg/actuation nasal spray,suspension metoprolol succinate 50 mg 50 mg PO DAILY 06/10/22 06/10/22 History tablet,extended release 24 hr naloxone 4 mg/actuation nasal spray 4 mg intranasal .DAILY/UD PRN 06/10/22 06/10/22 History Opiate Reversal ondansetron 8 mg disintegrating 8 mg translingual Q8H PRN Nausea 06/10/22 06/10/22 History tablet prednisone 5 mg tablet 5 - 10 mg PO DAILY 06/10/22 06/10/22 History triamcinolone acetonide 0.1 % 1 applic topical BID PRN .BACK 06/10/22 06/10/22 History topical ointment ERUPTION Patient History Medical History Anxiety Chronic neck and back pain Chronic obstructive pulmonary disease Chronic pain COPD (chronic obstructive pulmonary disease) Current every day smoker Glaucoma bilt eyes History of anesthesia reaction Difficulty waking up. 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 forth Surgical History History of ankle surgery L ankle triple fusion (pins in place) d/t RA History of bilateral tubal ligation History of cholecystectomy History of colonoscopy History of dilatation and curettage History of esophagogastroduodenoscopy (EGD) History of partial hysterectomy History of total left knee replacement (TKR) History of total right knee replacement (TKR) Hx of toe surgery "all ten toes were straightened" Status post cystoscopy with ureteral stent placement Status post wrist surgery bilt fusion (R wrist has plate in place) d/t RA Family History Father Family hx of colon cancer Family history of reaction to anesthesia slow to wake Social History Smoking Status: Current every day smoker Tobacco Type: E-cigarettes / Vaping Cigarettes Per Day: Vapes several times daily; Second Hand Exposure: No; Hx Alcohol Use: No Hx Substance Use: No Preferred Language: Surinamese Communication Ability: Effective Engine Watchman Required: No Beliefs That Will Affect Care: None marital status: Single Current Living Situation: Family Current Living Situation Comment: patient has downstairs apartment. patient's sister and upstairs How many Children do You have: 0 Other Information That Helps Us Care for You: No Feels Safe at Home: Yes Safety Concerns: Feels Safe At This Time Assistive Devices: Wheelchair Review of Systems Review of Systems: ROS: Gen: Denies weakness, fevers, weight loss Eyes: No eye redness, or pain, no recent vision changes Resp: No SOB, no cough Cardio: No palpitations/irregular beats, no chest pain GI: As per HPI, otherwise (-) : Denies pain on urination Skin: No jaundice, itching or new rashes Physical Exam Constitutional: well developed, + ill appearing, + thin and cooperative Eyes: PERRL, conjunctivae normal, anicteric sclerae ENMT: external ear and nose normal, oropharynx normal Neck: trachea midline, no thyromegaly Respiratory: normal respiratory effort, lungs clear to auscultation normal respiratory effort and able to speak in complete sentences; no respiratory distress, no labored breathing, does not use accessory muscles and no cough Cardiovascular: RRR, no murmur, no edema Gastrointestinal (Abdomen): Inspection/Auscultation: abdomen normal to inspection and normal bowel sounds; abdomen not distended and no abdominal edema Percussion/Palpation: + abdomen tender (mild, RUQ and epigastric) and abdomen soft Skin: no rashes, warm and dry normal turgor and + pallor Neurologic: PERRL, EOMI, accommodation nl, no face palsy, no dysarthria a wake; not confused Psychiatric: A+Ox3, euthymic affect Lymphatic: no cervical or axillary lymphadenopathy Results & Data ([facility]) Vital Signs (Past 12 Hours) Vital Signs Temp Pulse Resp BP Pulse Ox O2 Del Method 06/13/22 10:36 Room Air 06/13/22 07:42 36.7 C 82 18 127/79 96 Room Air Laboratory Results WBC 6.46, Hb 11.9, Hct 37.5, Plts 233, Na 139, K3.4, Cl 107, Co2 27, BUN 3, Cr 0.4 Diagnostic Findings CTAP w IV contrast on 06/10/22: 1. Findings are suspicious for mild acute appendicitis. There is only minimal in flammatory change. The appendix has significantly increased in caliber as compared to 2015, and underlying mucocele could also potentially have this appearance. Surgical evaluation is advised. 2. There is no evidence of abscess or perforation. 3. There is a subacute appearing right anterior 6th rib fracture. Correlate for point tenderness. 4. Additional findings as above.
--- NOTE | 2022-06-13 13:38 | Hospitalist Progress Note ---
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 Denied any fever or cough. Reported acute abdominal pain with emesis and UTI symptoms. Admits to occasional coughing with water/fluid intake with patient attributes to her neck issues, recommended aspiration precaution. She is being managed for the following: Transient hypoxemia, likely secondary to traumatic right rib fractures secondary to mechanical fall Underlying COPD O2 sats 88% at 1 point during ER stay, has been on room air otherwise. Admitting CXR: Equivocal 1.2 cm RUL nodule, nonemergent chest CT is recommended. Admitting head CT: No acute intracranial abnormalities or fracture. Admitting CTA chest: No PE. No airspace consolidation or pleural effusion. Subacute appearing right anterior sixth rib fracture. At admission, afebrile, WBC minimally elevated likely secondary to acute distress, Pro-Porfirio negative. PT/OT, fall precaution, continue monitoring. COPD stable. No wheezing. Continue with incentive spirometer. Lidoderm patch. Continue home pain management. Abdominal pain with RLQ tenderness Likely Mild acute appendicitis Nausea and vomiting No sepsis POA, presentation as above Admitting CTAP: Suggestive of mild acute appendicitis, surgical evaluation advised. Subacute appearing right anterior sixth rib fracture. Continue with Rocephin 06/10 and metronidazole 06/11 Patient reports improvement in her RLQ pain and reports improving nausea but occasional nausea with diet. No surgical intervention planned as per surgery. GI evaluated her; recommend obtaining stool culture result and using Imodium as needed. We will continue to advance diet as tolerated. UTI: E. coli; sensitive to Rocephin. Other chronic medical conditions: HTN, RA on chronic prednisone treatment, possible aspiration risks, chronic pain on narcotics, anxiety disorder at baseline, ambulatory dysfunction, past tobacco abuse --->> continue with/resume home meds as and when appropriate. Aspiration precaution. PT/OT. Speech evaluated 06/11, aspiration and reflux precautions. Mouth care. "moist" easy to chiew diet w/ thins. DVT prophylaxis Lovenox subcu DNR/DNI Disposition: PT/OT, CM to assist with DC planning. Likely DC with improvement in the diet and nausea/vomiting. Patient will need a special transportation at discharge. Admission and Anticipated Discharge Date Admission Date: June 11, 2022 Subjective Patient seen and examined at bedside. She is comfortable; not in distress. She is complaining of pain in her back and neck which is chronic. She complains of pain in her right upper quadrant where she has fractured her rib. Diarrhea has improved since the morning. Review of Systems Review of Systems: All systems reviewed & are unremarkable except as noted in Subjective Physical Exam Physical Exam: GENERAL: Alert and oriented x3. NAD, on RA. HEENT: No pallor, no icterus. Pupils equal, round and reactive to light. Oral mucosa moist. NECK: No JVD, no neck masses. HEART: S1 and S2 heard. Regular rate and rhythm. No murmur, no gallop. RESPIRATORY SYSTEM: Normal AP diameter. No accessory muscle use. No wheezing, no crackles. ABDOMEN: Soft, bowel sounds present, nontender rlq, no distention. CENTRAL NERVOUS SYSTEM: No facial droop. Speech is clear. Obeys simple commands. Moves extremities. EXTREMITIES: No edema, no erythema seen. Results & Data Results & Data ([facility]) Vital Signs (Past 12 Hours) Vital Signs Temp Pulse Resp BP Pulse Ox O2 Del Method 06/13/22 10:36 Room Air 06/13/22 07:42 36.7 C 82 18 127/79 96 Room Air Laboratory Results Laboratory Results WBC 6.46 K/ul (4.8-10.8) 06/12/22 06:58 RBC 4.02 M/uL (3.93-5.22) 06/12/22 06:58 Hgb 11.9 g/dl (12.0-16.0) L 06/12/22 06:58 Hct 37.5 % (34.1-44.9) 06/12/22 06:58 MCV 93.3 fL (80.0-100.0) 06/12/22 06:58 MCH 29.6 pg (25.0-34.0) 06/12/22 06:58 MCHC 31.7 g/dL (32.0-36.0) L 06/12/22 06:58 RDW Std Deviation 45.8 fL (36.4-46.3) 06/12/22 06:58 RDW Coeff of Emma 13.4 % (11.5-14.5) 06/12/22 06:58 Plt Count 233 K/uL (130-400) 06/12/22 06:58 MPV 8.8 fL (9.4-12.3) L 06/12/22 06:58 Immature Gran % (Auto) 0.3 % 06/11/22 06:03 Neut % (Auto) 72.1 % 06/11/22 06:03 Lymph % (Auto) 18.4 % 06/11/22 06:03 [place] % (Auto) 7.4 % 06/11/22 06:03 Eos % (Auto) 1.3 % 06/11/22 06:03 Baso % (Auto) 0.5 % 06/11/22 06:03 Neut # (Auto) 6.35 K/uL (1.4-6.5) 06/11/22 06:03 Lymph # (Auto) 1.62 K/uL (1.2-3.4) 06/11/22 06:03 [place] # (Auto) 0.65 K/uL (0.24-0.82) 06/11/22 06:03 Eos # (Auto) 0.11 K/uL (0-0.50) 06/11/22 06:03 Baso # (Auto) 0.04 K/uL (0-0.2) 06/11/22 06:03 Immature Gran # (Auto) 0.03 K/uL (0.00-0.02) H 06/11/22 06:03 Sodium 139 mmol/L (136-145) 06/12/22 06:58 Potassium 3.4 mmol/L (3.5-5.1) L 06/12/22 06:58 Chloride 107 mmol/L (98-107) 06/12/22 06:58 Carbon Dioxide 27 mmol/L (21-32) 06/12/22 06:58 Anion Gap 5 (3-11) 06/12/22 06:58 BUN 3 mg/dl (6-23) L 06/12/22 06:58 Creatinine 0.40 mg/dl (0.6-1.2) L 06/12/22 06:58 Est Cr Clr Drug Dosing 153.3 ml/min 06/12/22 06:58 Est GFR ( Amer) 132.1 ml/min 06/12/22 06:58 Est GFR (Non-Af Amer) 114.0 ml/min 06/12/22 06:58 BUN/Creatinine Ratio 7.5 (10-20) L 06/12/22 06:58 Glucose 73 mg/dl (70-99(Fasting)) 06/12/22 06:58 Lactate 1.1 mmol/L (0.4-2.0) 06/10/22 18:35 Calcium 8.0 mg/dl (8.5-10.1) L 06/12/22 06:58 Phosphorus 3.0 mg/dl (2.5-4.9) 06/12/22 06:58 Magnesium 2.0 mg/dl (1.7-2.4) 06/12/22 06:58 Total Bilirubin 1.1 mg/dl (0.2-1.0) H 06/10/22 18:35 Direct Bilirubin 0.2 mg/dl (0-0.2) 06/10/22 18:35 AST 15 U/L (13-39) 06/10/22 18:35 ALT 11 U/L (7-52) 06/10/22 18:35 Alkaline Phosphatase 43 U/L (34-104) 06/10/22 18:35 Troponin I High Sens 7.0 pg/ml (0-14) 06/10/22 23:05 Total Protein 6.5 gm/dl (6.0-8.3) 06/10/22 18:35 Albumin 3.4 gm/dl (3.4-5.0) 06/10/22 18:35 Lipase 12 U/L (11-82) 06/10/22 23:05 Procalcitonin < 0.05 ng/ml (0-0.5) 06/10/22 18:35 TSH 0.790 uIu/ml (0.300-4.500) 06/10/22 18:35 Urine Color Dark Yellow 06/10/22 19:35 Urine Appearance Cloudy (Clear) A 06/10/22 19:35 Urine pH 6.5 (4.5-7.5) 06/10/22 19:35 Ur Specific [place] 1.019 (1.000-1.030) 06/10/22 19:35 Urine Protein Trace (Negative) H 06/10/22 19:35 Urine Glucose (UA) Negative (Negative) 06/10/22 19:35 Urine Ketones 2+ (Negative) H 06/10/22 19:35 Urine Blood Negative (Negative) 06/10/22 19:35 Urine Nitrite Negative (Negative) 06/10/22 19:35 Urine Bilirubin Negative (Negative) 06/10/22 19:35 Urine Urobilinogen Negative (Negative) 06/10/22 19:35 Ur Leukocyte Esterase 2+ (Negative) H 06/10/22 19:35 Urine WBC (Auto) >30 /hpf (0-5) H 06/10/22 19:35 Urine RBC (Auto) 0-4 /hpf (0-4) 06/10/22 19:35 U Hyaline Cast (Auto) 1-5 /lpf (0-5) 06/10/22 19:35 U Epithel Cells (Auto) 0-5 /lpf (0-5) 06/10/22 19:35 Urine Bacteria (Auto) 4+ (Negative) H 06/10/22 19:35 Stl C. diff Tox B Gene Negative Cdiff Gene (Neg) 06/12/22 17:35 SARS-CoV-2 (PCR) NEGATIVE (Negative) 06/10/22 19:00 Influenza Type A (PCR) Negative (Neg) 06/10/22 19:00 Influenza Type B (PCR) Negative (Neg) 06/10/22 19:00 RSV (RT-PCR) Negative (Neg) 06/10/22 19:00 Impressions Chest X-Ray 06/10/22 18:13 XR chest 1V portable CLINICAL HISTORY: Sepsis. COMPARISON STUDY: Chest radiograph July 11, 2015. FINDINGS: Note is made of mild elevation the right hemidiaphragm. No consolidation is identified. Linear left basilar opacity favors atelectasis. Apparent hazy left basilar opacity is likely artifactual. There is an equivocal 1.2 cm right upper lobe nodule. There is no pneumothorax or pleural effusion. Cardiac size is normal. Mediastinal contours are normal. There is no evidence for pulmonary edema. IMPRESSION: 1. No acute cardiopulmonary findings. 2. Equivocal 1.2 cm right upper lobe nodule. This is likely artifactual. However, a nonemergent chest CT is recommended. 3. Linear left basilar opacity which favors atelectasis. ACT 112: Negative or not required by law. Electronically signed by: Finesse Beltran M.D. 06/10/2022 8:[address] 06/10/22 22:39 CT head/brain wo con CLINICAL HISTORY: 61 years-old Female with quach , trauma. Acute headache status post trauma TECHNIQUE: Multiple axial CT images of the head were obtained without contrast. A dose lowering technique was utilized adhering to the principles of ALARA. COMPARISON: 03/08/2012 FINDINGS: No acute intracranial hemorrhage, midline shift, intracranial mass, hydrocephalus, territorial ischemia or abnormal extra-axial collection. Mildly motion degraded exam. A portion of the study was then repeated. Cerebral vascular calcifications. The calvarium is intact. Trace mastoid effusions. Paranasal sinuses are clear. Unremarkable soft tissues and orbits. IMPRESSION: No acute intracranial abnormality or calvarial fracture. ACT 112: Negative or not required by law. The above report was generated using voice recognition software. It may contain grammatical, syntax or spelling errors. Electronically signed by: Monster Gurrola M.D. 06/11/2022 7:00 AM Abdomen/Pelvis CT 06/10/22 22:40 CT SCAN OF THE ABDOMEN AND PELVIS WITH IV CONTRAST CLINICAL HISTORY: Generalized abdominal pain. COMPARISON STUDY: Abdominal CT dated 07/12/2015. TECHNIQUE: Following the IV administration of 113 cc of Optiray 320, CT scan of the abdomen and pelvis is performed from the lung bases to the proximal femora. Images are reviewed in the axial, sagittal, and coronal planes. IV contrast was administered without complication. A dose lowering technique was utilized adhering to the principles of ALARA. The examination is degraded by motion artifact, as well as by streak artifact from the arms which could not be elevated above the abdomen. CT DOSE: 2623.67 mGy.cm FINDINGS: Lung bases: The heart is normal in size and without pericardial effusion. The lung bases are clear noting dependent atelectasis. Liver: The contrast-enhanced liver is normal in size, contour, and attenuation. There is no intrahepatic biliary ductal dilatation. The hepatic veins and portal veins are patent. Gallbladder: Surgically absent noting clips in the gallbladder fossa. Spleen: Normal in size and attenuation. Pancreas: Unremarkable. Adrenal glands: Unremarkable. Kidneys: The contrast enhanced kidneys the lesser cortical atrophy and are without hydronephrosis. The kidneys enhance symmetrically. Scattered subcentimeter cortical hypodensities likely represent cysts but are too small for definitive characterization. Abdominal vasculature: The abdominal aorta is normal in course and caliber noting advanced atherosclerotic calcification. Bowel: There are scattered colonic diverticula without CT evidence of acute diverticulitis. No bowel obstruction is seen. The appendix is dilated and fluid-filled measuring 9 mm. There is minimal surrounding infiltration, and the caliber has significantly increased as compared to 2015. Peritoneum: There is no intraperitoneal free air or abdominal ascites. Lymphadenopathy: None. Pelvic viscera: The bladder is distended but otherwise normal in appearance. The uterus is surgically absent. No adnexal lesion is seen. Surgical clips are noted in the posterior pelvis. Skeletal structures: The skeletal structures are osteopenic. No lytic or blastic lesions are seen. There is a subacute appearing right anterior 6th rib fracture. IMPRESSION: 1. Findings are suspicious for mild acute appendicitis. There is only minimal inflammatory change. The appendix has significantly increased in caliber as compared to 2015, and underlying mucocele could also potentially have this appearance. Surgical evaluation is advised. 2. There is no evidence of abscess or perforation. 3. There is a subacute appearing right anterior 6th rib fracture. Correlate for point tenderness. 4. Additional findings as above. ACT 112: Negative or not required by law. Electronically signed by: Elier Shultz M.D. 06/11/2022 9:09 AM Chest CTA 06/10/22 22:40 CT ANGIOGRAM OF THE CHEST CLINICAL HISTORY: Atypical chest pain. Dyspnea. COMPARISON STUDY: Chest CT dated 09/11/2013. Chest x-ray dated 06/10/2022. TECHNIQUE: Following the IV administration of 113 cc of Optiray 320, CT angiogram of the chest was performed from the upper abdomen to the thoracic inlet utilizing the pulmonary embolus protocol. Images are reviewed in the axial, sagittal, and coronal planes. 3-D MIPS images are created and assessed. IV contrast was administered without complication. A dose lowering technique was utilized adhering to the principles of ALARA. The examination is degraded by motion artifact, as well as by streak artifact from the arms which could not be elevated above the chest. FINDINGS: Thyroid: Imaged portions of the thyroid gland are normal in size and attenuation. Thoracic aorta: There is mild atherosclerotic calcification of the thoracic aorta, which is normal in caliber and demonstrates standard 3-vessel arch anatomy. No dissection is seen. Pulmonary vasculature: The pulmonary trunk is normal in caliber. There are no filling defects identified in main, lobar, or segmental pulmonary branches to suggest pulmonary embolus. Heart: The heart is top normal in size and without pericardial effusion. Lungs and pleural spaces: There is no airspace consolidation typical for pneumonia or pleural effusion. Dependent atelectasis is noted at both lung bases. A small fat-containing Bochdalek hernia is seen on the right. The trachea and central airways are clear. Mediastinum: There is no mediastinal lymphadenopathy. Brandee: Clear. Axillae: There is no axillary lymphadenopathy. Upper abdomen: Cholecystectomy clips are noted. Partially visualized upper abdominal viscera is otherwise within normal limits. Skeletal structures: The skeletal structures are osteopenic. No lytic or blastic bony lesions are seen. There is a subacute appearing right anterior 6th rib fracture. IMPRESSION: 1. There is no evidence of pulmonary embolus in the main, lobar, or segmental p ulmonary arteries. 2. There is no airspace consolidation or pleural effusion. 3. There is a subacute appearing right anterior 6th rib fracture. Correlate for point tenderness. 4. Additional findings as above. ACT 112: Negative or not required by law. Electronically signed by: Elier Shultz M.D. 06/11/2022 9:17 AM
[2022-06-13] MEDS: CHECK fentaNYL PATCH PLACEMENT SCH ×2 (15:46→15:47)
[2022-06-13] MEDS: LOPERAMIDE HCL 2 MG CAP PO PRN (19:26)
[2022-06-13] MEDS: LATANOPROST 0.005% OP SOLN 2.5 ML BTL OPB SCH (20:33)
[2022-06-14] MEDS: CHECK fentaNYL PATCH PLACEMENT SCH ×6 (00:03→15:15)
[2022-06-14] MEDS: ONDANSETRON INJ 2 MG/ML 2 ML VIAL IV PRN (03:03)
[2022-06-14] MEDS: MoRPHine SULFATE IR 15 MG TAB (IMMEDIATE RELEASE) PO PRN ×3 (04:32→19:42)
[2022-06-14] MEDS ORDERED: fentaNYL 100 MCG/HR TDSY TD SCH (05:00)
[2022-06-14] MEDS ORDERED: fentaNYL 75 MCG/HR TDSY TD SCH (05:00)
[2022-06-14] MEDS: metroNIDAZOLE 500 MG/100 ML BAG IV SCH ×3 (05:17→21:34)
[2022-06-14] MEDS: CYANOCOBALAMIN (B-12) 500 MCG TABLET PO SCH (08:30)
[2022-06-14] MEDS: FLUTICASONE PROPIONATE NA SPR 16 GM BTL SCH (08:30)
[2022-06-14] MEDS: POLYETHYLENE (MIRALAX) 17 GM PACK PO SCH (08:31)
[2022-06-14] MEDS: ADVANCED PROBIOTIC 1250 MG CAPSULE PO SCH (08:31)
[2022-06-14] MEDS: predniSONE 5 MG TAB PO SCH (08:31)
[2022-06-14] MEDS: CALCIUM 600MG + VIT D 400 IU TAB PO SCH (08:32)
[2022-06-14] MEDS: DOCUSATE SODIUM/SENNA 50/8.6MG TAB PO SCH (08:32)
[2022-06-14] MEDS: ENOXAPARIN INJ 40 MG/0.4 ML SYR SQ SCH (08:33)
[2022-06-14 08:34] LABS: Basophils # (auto) 0.04 K/uL (0-0.2); Basophils % (auto) 0.4 %; Eosinophils % (auto) 2.2 %; Hematocrit (blood only) 39.9 % (34.1-44.9); Hemoglobin 12.7 g/dl (12.0-16.0); Immature Granulocytes # (auto) 0.06 K/uL (0.00-0.02); Immature Granulocytes % (auto) 0.7 %; Lymphocytes % (auto) 14.4 %; Mean Corpuscular Hemoglobin 29.2 pg (25.0-34.0); Mean Corpuscular Hgb Conc 31.8 g/dL (32.0-36.0); Mean Corpuscular Volume 91.7 fL (80.0-100.0); Mean Platelet Volume 8.5 fL (9.4-12.3); Monocytes % (auto) 6.6 %; Neutrophils # (auto) 6.83 K/uL (1.4-6.5); Neutrophils % (auto) 75.7 %; Platelet Count 250 K/uL (130-400); RDW Coefficient of Variation 13.6 % (11.5-14.5); RDW Standard Deviation 46.6 fL (36.4-46.3); Red Blood Count 4.35 M/uL (3.93-5.22); White Blood Count 9.03 K/ul (4.8-10.8)
[2022-06-14] MEDS: FLUTICASONE/VILANTEROL 200/25MCG 14 PUFFS/INHALER INH SCH (08:35)
[2022-06-14] MEDS: METOPROLOL SUCC 50MG EXT REL TAB PO SCH (08:36)
[2022-06-14] MEDS: LIDOCAINE 5% 1 PATCH TD SCH (08:37)
[2022-06-14] MEDS: cefTRIAXone SODIUM 1,000 MG in DEXTROSE 5% 50 ML IV SCH (08:40)
[2022-06-14 08:57] LABS: BUN Creatinine Ratio 11.6 (10-20); Calcium 8.5 mg/dl (8.5-10.1); Creatinine Clr Calc Pharmacy 142.6 ml/min; Est GFR (Non-African American) 111.3 ml/min
--- NOTE | 2022-06-14 10:03 | Gastroenterology Progress Note ---
Date of Service June 14, 2022 Assessment & Plan (1) Nausea & vomiting: Plan: Resolved (2) Diarrhea: Plan: This may represent antibiotic associated diarrhea as it began after ceftriaxone was initiated vs. viral gastroenteritis. C-diff is (-). Will check stool culture. (3) Esophageal dysphagia: Plan: Chronic Plan OP EGD will be arranged for the dysphagia and RUQ pain. Our office will call her. Continue Imodium BID prn. Watch for stool culture results. GI will sign off. Please notify us if new/worsening GI symptoms. Admission and Anticipated Discharge Date Admission Date: June 11, 2022 Supervising Physician Co-Signing Physician Notes I performed a history and physical examination of the patient today, including specifically on physical exam - soft abdomen. I have discussed the patient's management with the advanced practitioner. Please refer to the nurse practitioner's note for the documented findings and plan of care. EGD/colonoscopy as OP. Recall GI if needed. Subjective Patient seen and examined at bedside. She is comfortable; not in distress. Reports having passed 2 loose bowel movements yesterday, 1 thus far today. Believes the Imodium is effective. No further nausea or vomiting. Tolerating regular consistency diet. Today, mentions chronic dysphagia feeling like food gets stuck at the bottom of the chest she has to bob with water and repeat swallows to clear the bolus. Also mentions chronic right upper quadrant abdominal pain, not severe and no change in the past few days. Review of Systems Review of Systems: ROS: Gen: Denies weakness, fevers, weight loss Eyes: No eye redness, or pain, no recent vision changes Resp: No SOB, no cough Cardio: No palpitations/irregular beats, no chest pain GI: As per HPI, otherwise (-) : Denies pain on urination Skin: No jaundice, itching or new rashes Physical Exam Constitutional: well developed, + ill appearing, + thin and cooperative Eyes: PERRL, conjunctivae normal, anicteric sclerae ENMT: external ear and nose normal, oropharynx normal Neck: trachea midline, no thyromegaly Respiratory: normal respiratory effort, lungs clear to auscultation normal respiratory effort and able to speak in complete sentences; no respiratory distress, no labored breathing, does not use accessory muscles and no cough Cardiovascular: RRR, no murmur, no edema Gastrointestinal (Abdomen): Inspection/Auscultation: abdomen normal to inspection and normal bowel sounds; abdomen not distended and no abdominal edema Percussion/Palpation: + abdomen tender (mild, RUQ and epigastric) and abdomen soft Skin: no rashes, warm and dry normal turgor and + pallor Neurologic: PERRL, EOMI, accommodation nl, no face palsy, no dysarthria awake; not confused Psychiatric: A+Ox3, euthymic affect Lymphatic: no cervical or axillary lymphadenopathy Results & Data ([facility]) Vital Signs (Past 12 Hours) Vital Signs Temp Pulse Pulse Resp BP Pulse Ox O2 Del Method 06/14/22 07:35 36.5 C 84 16 119/82 95 Room Air 06/14/22 07:16 Room Air 06/13/22 23:17 36.3 C L 89 18 138/82 96 Room Air Laboratory Results WBC 9.03, Hb 12.7, HCT 39.9,PLTs 150, NA 137, K4.0, CL 105, CO2 21, BUN 5, CR 0.4 Diagnostic Findings CTAP 06/10/22: 1. Findings are suspicious for mild acute appendicitis. There is only minimal inflammatory change. The appendix has significantly increased in caliber as compared to 2015, and underlying mucocele could also potentially have this appearance. Surgical evaluation is advised. 2. There is no evidence of abscess or perforation. 3. There is a subacute appearing right anterior 6th rib fracture. Correlate for point tenderness.
--- NOTE | 2022-06-14 14:30 | Hospitalist Progress Note ---
Date of Service June 14, 2022 Assessment & Plan (1) Abdominal pain: Plan 61-year-old lady with PMH of COPD, HTN, rheumatoid arthritis on chronic prednisone treatment, chronic pain on narcotics, anxiety disorder and past tobacco abuse presented to our ED 06/10 with complaint of increasing weakness at home since 2 days ago [employer] and fall resulting in some head trauma/pleuritic right-sided chest pain. Denied any fever or cough. Reported acute abdominal pain with emesis and UTI symptoms. Admits to occasional coughing with water/fluid intake with patient attributes to her neck issues, recommended aspiration precaution. She is being managed for the following: Transient hypoxemia, likely secondary to traumatic right rib fractures secondary to mechanical fall Underlying COPD O2 sats 88% at 1 point during ER stay, has been on room air otherwise. Admitting CXR: Equivocal 1.2 cm RUL nodule, nonemergent chest CT is recommended. Admitting head CT: No acute intracranial abnormalities or fracture. Admitting CTA chest: No PE. No airspace consolidation or pleural effusion. Subacute appearing right anterior sixth rib fracture. At admission, afebrile, WBC minimally elevated likely secondary to acute distress, Pro-Porfirio negative. PT/OT, fall precaution, continue monitoring. COPD stable. No wheezing. Continue with incentive spirometer. Lidoderm patch. Continue home pain management. Abdominal pain with RLQ tenderness Likely Mild acute appendicitis Nausea and vomiting No sepsis POA, presentation as above Admitting CTAP: Suggestive of mild acute appendicitis, surgical evaluation advised. Subacute appearing right anterior sixth rib fracture. Continue with Rocephin 06/10 and metronidazole 06/11 Patient reports improvement in her RLQ pain and reports improving nausea but occasional nausea with diet. No surgical intervention planned as per surgery. GI evaluated her; recommend obtaining stool culture result and using Imodium as needed. We will continue to advance diet as tolerated. UTI: E. coli; sensitive to Rocephin. Other chronic medical conditions: HTN, RA on chronic prednisone treatment, possible aspiration risks, chronic pain on narcotics, anxiety disorder at baseline, ambulatory dysfunction, past tobacco abuse --->> continue with/resume home meds as and when appropriate. Aspiration precaution. PT/OT. Speech evaluated 06/11, aspiration and reflux precautions. Mouth care. "moist" easy to chiew diet w/ thins. DVT prophylaxis Lovenox subcu DNR/DNI Disposition: PT/OT, CM to assist with DC planning. Likely DC with improvement in the diet and nausea/vomiting; most likely tomorrow. Patient will need a special transportation at discharge. Admission and Anticipated Discharge Date Admission Date: June 11, 2022 Subjective Patient seen and examined at bedside. She reports that her diarrhea is getting better and her appetite is getting better as well. 1 episode of loose bowel movement so far. Review of Systems Review of Systems: All systems reviewed & are unremarkable except as noted in Subjective Physical Exam Physical Exam: GENERAL: Alert and oriented x3. NAD, on RA. HEENT: No pallor, no icterus. Pupils equal, round and reactive to light. Oral mucosa moist. NECK: No JVD, no neck masses. HEART: S1 and S2 heard. Regular rate and rhythm. No murmur, no gallop. RESPIRATORY SYSTEM: Normal AP diameter. No accessory muscle use. No wheezing, no crackles. ABDOMEN: Soft, bowel sounds present, nontender rlq, no distention. CENTRAL NERVOUS SYSTEM: No facial droop. Speech is clear. Obeys simple commands. Moves extremities. EXTREMITIES: No edema, no erythema seen. Results & Data Results & Data ([facility]) Vital Signs (Past 12 Hours) Vital Signs Temp Pulse Resp BP Pulse Ox O2 Del Method 06/14/22 07:35 36.5 C 84 16 119/82 95 Room Air 06/14/22 07:16 Room Air Laboratory Results Laboratory Results WBC 9.03 K/ul (4.8-10.8) 06/14/22 08:20 RBC 4.35 M/uL (3.93-5.22) 06/14/22 08:20 Hgb 12.7 g/dl (12.0-16.0) 06/14/22 08:20 Hct 39.9 % (34.1-44.9) 06/14/22 08:20 MCV 91.7 fL (80.0-100.0) 06/14/22 08:20 MCH 29.2 pg (25.0-34.0) 06/14/22 08:20 MCHC 31.8 g/dL (32.0-36.0) L 06/14/22 08:20 RDW Std Deviation 46.6 fL (36.4-46.3) H 06/14/22 08:20 RDW Coeff of Emma 13.6 % (11.5-14.5) 06/14/22 08:20 Plt Count 250 K/uL (130-400) 06/14/22 08:20 MPV 8.5 fL (9.4-12.3) L 06/14/22 08:20 Immature Gran % (Auto) 0.7 % 06/14/22 08:20 Neut % (Auto) 75.7 % 06/14/22 08:20 Lymph % (Auto) 14.4 % 06/14/22 08:20 Whitley % (Auto) 6.6 % 06/14/22 08:20 Eos % (Auto) 2.2 % 06/14/22 08:20 Baso % (Auto) 0.4 % 06/14/22 08:20 Neut # (Auto) 6.83 K/uL (1.4-6.5) H 06/14/22 08:20 Lymph # (Auto) 1.30 K/uL (1.2-3.4) 06/14/22 08:20 Whitley # (Auto) 0.60 K/uL (0.24-0.82) 06/14/22 08:20 Eos # (Auto) 0.20 K/uL (0-0.50) 06/14/22 08:20 Baso # (Auto) 0.04 K/uL (0-0.2) 06/14/22 08:20 Immature Gran # (Auto) 0.06 K/uL (0.00-0.02) H 06/14/22 08:20 Sodium 137 mmol/L (136-145) 06/14/22 08:20 Potassium 4.0 mmol/L (3.5-5.1) 06/14/22 08:20 Chloride 105 mmol/L (98-107) 06/14/22 08:20 Carbon Dioxide 21 mmol/L (21-32) 06/14/22 08:20 Anion Gap 11 (3-11) 06/14/22 08:20 BUN 5 mg/dl (6-23) L 06/14/22 08:20 Creatinine 0.43 mg/dl (0.6-1.2) L 06/14/22 08:20 Est Cr Clr Drug Dosing 142.6 ml/min 06/14/22 08:20 Est GFR ( Amer) 129.0 ml/min 06/14/22 08:20 Est GFR (Non-Af Amer) 111.3 ml/min 06/14/22 08:20 BUN/Creatinine Ratio 11.6 (10-20) 06/14/22 08:20 Glucose 58 mg/dl (70-99(Fasting)) L 06/14/22 08:20 Lactate 1.1 mmol/L (0.4-2.0) 06/10/22 18:35 Calcium 8.5 mg/dl (8.5-10.1) 06/14/22 08:20 Phosphorus 3.0 mg/dl (2.5-4.9) 06/12/22 06:58 Magnesium 2.0 mg/dl (1.7-2.4) 06/12/22 06:58 Total Bilirubin 1.1 mg/dl (0.2-1.0) H 06/10/22 18:35 Direct Bilirubin 0.2 mg/dl (0-0.2) 06/10/22 18:35 AST 15 U/L (13-39) 06/10/22 18:35 ALT 11 U/L (7-52) 06/10/22 18:35 Alkaline Phosphatase 43 U/L (34-104) 06/10/22 18:35 Troponin I High Sens 7.0 pg/ml (0-14) 06/10/22 23:05 Total Protein 6.5 gm/dl (6.0-8.3) 06/10/22 18:35 Albumin 3.4 gm/dl (3.4-5.0) 06/10/22 18:35 Lipase 12 U/L (11-82) 06/10/22 23:05 Procalcitonin < 0.05 ng/ml (0-0.5) 06/10/22 18:35 TSH 0.790 uIu/ml (0.300-4.500) 06/10/22 18:35 Urine Color Dark Yellow 06/10/22 19:35 Urine Appearance Cloudy (Clear) A 06/10/22 19:35 Urine pH 6.5 (4.5-7.5) 06/10/22 19:35 Ur Specific [place] 1.019 (1.000-1.030) 06/10/22 19:35 Urine Protein Trace (Negative) H 06/10/22 19:35 Urine Glucose (UA) Negative (Negative) 06/10/22 19:35 Urine Ketones 2+ (Negative) H 06/10/22 19:35 Urine Blood Negative (Negative) 06/10/22 19:35 Urine Nitrite Negative (Negative) 06/10/22 19:35 Urine Bilirubin Negative (Negative) 06/10/22 19:35 Urine Urobilinogen Negative (Negative) 06/10/22 19:35 Ur Leukocyte Esterase 2+ (Negative) H 06/10/22 19:35 Urine WBC (Auto) >30 /hpf (0-5) H 06/10/22 19:35 Urine RBC (Auto) 0-4 /hpf (0-4) 06/10/22 19:35 U Hyaline Cast (Auto) 1-5 /lpf (0-5) 06/10/22 19:35 U Epithel Cells (Auto) 0-5 /lpf (0-5) 06/10/22 19:35 Urine Bacteria (Auto) 4+ (Negative) H 06/10/22 19:35 Stl C. diff Tox B Gene Negative Cdiff Gene (Neg) 06/12/22 17:35 SARS-CoV-2 (PCR) NEGATIVE (Negative) 06/10/22 19:00 Influenza Type A (PCR) Negative (Neg) 06/10/22 19:00 Influenza Type B (PCR) Negative (Neg) 06/10/22 19:00 RSV (RT-PCR) Negative (Neg) 06/10/22 19:00 Impressions Chest X-Ray 06/10/22 18:13 XR chest 1V portable CLINICAL HISTORY: Sepsis. COMPARISON STUDY: Chest radiograph July 11, 2015. FINDINGS: Note is made of mild elevation the right hemidiaphragm. No consolidation is identified. Linear left basilar opacity favors atelectasis. Apparent hazy left basilar opacity is likely artifactual. There is an equivocal 1.2 cm right upper lobe nodule. There is no pneumothorax or pleural effusion. Cardiac size is normal. Mediastinal contours are normal. There is no evidence for pulmonary edema. IMPRESSION: 1. No acute cardiopulmonary findings. 2. Equivocal 1.2 cm right upper lobe nodule. This is likely artifactual. However, a nonemergent chest CT is recommended. 3. Linear left basilar opacity which favors atelectasis. ACT 112: Negative or not required by law. Electronically signed by: Finesse Beltran M.D. 06/10/2022 8:[address] 06/10/22 22:39 CT head/brain wo con CLINICAL HISTORY: 61 years-old Female with quach , trauma. Acute headache status post trauma TECHNIQUE: Multiple axial CT images of the head were obtained without contrast. A dose lowering technique was utilized adhering to the principles of ALARA. COMPARISON: 03/08/2012 FINDINGS: No acute intracranial hemorrhage, midline shift, intracranial mass, hydrocephalus, territorial ischemia or abnormal extra-axial collection. Mildly motion degraded exam. A portion of the study was then repeated. Cerebral vascular calcifications. The calvarium is intact. Trace mastoid effusions. Paranasal sinuses are clear. Unremarkable soft tissues and orbits. IMPRESSION: No acute intracranial abnormality or calvarial fracture. ACT 112: Negative or not required by law. The above report was generated using voice recognition software. It may contain grammatical, syntax or spelling errors. Electronically signed by: Monster Gurrola M.D. 06/11/2022 7:00 AM Abdomen/Pelvis CT 06/10/22 22:40 CT SCAN OF THE ABDOMEN AND PELVIS WITH IV CONTRAST CLINICAL HISTORY: Generalized abdominal pain. COMPARISON STUDY: Abdominal CT dated 07/12/2015. TECHNIQUE: Following the IV administration of 113 cc of Optiray 320, CT scan of the abdomen and pelvis is performed from the lung bases to the proximal femora. Images are reviewed in the axial, sagittal, and coronal planes. IV contrast was administered without complication. A dose lowering technique was utilized adhering to the principles of ALARA. The examination is degraded by motion artifact, as well as by streak artifact from the arms which could not be elevated above the abdomen. CT DOSE: 2623.67 mGy.cm FINDINGS: Lung bases: The heart is normal in size and without pericardial effusion. The lung bases are clear noting dependent atelectasis. Liver: The contrast-enhanced liver is normal in size, contour, and attenuation. There is no intrahepatic biliary ductal dilatation. The hepatic veins and portal veins are patent. Gallbladder: Surgically absent noting clips in the gallbladder fossa. Spleen: Normal in size and attenuation. Pancreas: Unremarkable. Adrenal glands: Unremarkable. Kidneys: The contrast enhanced kidneys the lesser cortical atrophy and are without hydronephrosis. The kidneys enhance symmetrically. Scattered subcentimeter cortical hypodensities likely represent cysts but are too small for definitive characterization. Abdominal vasculature: The abdominal aorta is normal in course and caliber noting advanced atherosclerotic calcification. Bowel: There are scattered colonic diverticula without CT evidence of acute diverticulitis. No bowel obstruction is seen. The appendix is dilated and fluid-filled measuring 9 mm. There is minimal surrounding infiltration, and the caliber has significantly increased as compared to 2015. Peritoneum: There is no intraperitoneal free air or abdominal ascites. Lymphadenopathy: None. Pelvic viscera: The bladder is distended but otherwise normal in appearance. The uterus is surgically absent. No adnexal lesion is seen. Surgical clips are noted in the posterior pelvis. Skeletal structures: The skeletal structures are osteopenic. No lytic or blastic lesions are seen. There is a subacute appearing right anterior 6th rib fracture. IMPRESSION: 1. Findings are suspicious for mild acute appendicitis. There is only minimal inflammatory change. The appendix has significantly increased in caliber as compared to 2015, and underlying mucocele could also potentially have this appearance. Surgical evaluation is advised. 2. There is no evidence of abscess or perforation. 3. There is a subacute appearing right anterior 6th rib fracture. Correlate for point tenderness. 4. Additional findings as above. ACT 112: Negative or not required by law. Electronically signed by: Elier Shultz M.D. 06/11/2022 9:09 AM Chest CTA 06/10/22 22:40 CT ANGIOGRAM OF THE CHEST CLINICAL HISTORY: Atypical chest pain. Dyspnea. COMPARISON STUDY: Chest CT dated 09/11/2013. Chest x-ray dated 06/10/2022. TECHNIQUE: Following the IV administration of 113 cc of Optiray 320, CT angiogram of the chest was performed from the upper abdomen to the thoracic inlet utilizing the pulmonary embolus protocol. Images are reviewed in the axial, sagittal, and coronal planes. 3-D MIPS images are created and assessed. IV contrast was administered without complication. A dose lowering technique was utilized adhering to the principles of ALARA. The examination is degraded by motion artifact, as well as by streak artifact from the arms which could not be elevated above the chest. FINDINGS: Thyroid: Imaged portions of the thyroid gland are normal in size and attenuation. Thoracic aorta: There is mild atherosclerotic calcification of the thoracic aorta, which is normal in caliber and demonstrates standard 3-vessel arch anatomy. No dissection is seen. Pulmonary vasculature: The pulmonary trunk is normal in caliber. There are no filling defects identified in main, lobar, or segmental pulmonary branches to suggest pulmonary embolus. Heart: The heart is top normal in size and without pericardial effusion. Lungs and pleural spaces: There is no airspace consolidation typical for pneumonia or pleural effusion. Dependent atelectasis is noted at both lung bases. A small fat-containing Bochdalek hernia is seen on the right. The trachea and central airways are clear. Mediastinum: There is no mediastinal lymphadenopathy. Brandee: Clear. Axillae: There is no axillary lymphadenopathy. Upper abdomen: Cholecystectomy clips are noted. Partially visualized upper abdominal viscera is otherwise within normal limits. Skeletal structures: The skeletal structures are osteopenic. No lytic or blastic bony lesions are seen. There is a subacute appearing right anterior 6th rib fracture. IMPRESSION: 1. There is no evidence of pulmonary embolus in the main, lobar, or segmental pulmonary arteries. 2. There is no airspace consolidation or pleural effusion. 3. There is a subacute appearing right anterior 6th rib fracture. Correlate for point tenderness. 4. Additional findings as above. ACT 112: Negative or not required by law. Electronically signed by: Elier Shultz M.D. 06/11/2022 9:17 AM
[2022-06-14] MEDS: LATANOPROST 0.005% OP SOLN 2.5 ML BTL OPB SCH (20:47)
[2022-06-15] MEDS: CHECK fentaNYL PATCH PLACEMENT SCH ×6 (00:06→16:57)
[2022-06-15] MEDS: MoRPHine SULFATE IR 15 MG TAB (IMMEDIATE RELEASE) PO PRN ×3 (00:44→16:53)
[2022-06-15] MEDS: metroNIDAZOLE 500 MG/100 ML BAG IV SCH ×2 (06:16→15:20)
[2022-06-15] MEDS: CYANOCOBALAMIN (B-12) 500 MCG TABLET PO SCH (07:24)
[2022-06-15] MEDS: ADVANCED PROBIOTIC 1250 MG CAPSULE PO SCH (07:25)
[2022-06-15] MEDS: predniSONE 5 MG TAB PO SCH (07:25)
[2022-06-15] MEDS: METOPROLOL SUCC 50MG EXT REL TAB PO SCH (07:26)
[2022-06-15] MEDS: CALCIUM 600MG + VIT D 400 IU TAB PO SCH (07:26)
[2022-06-15] MEDS: ENOXAPARIN INJ 40 MG/0.4 ML SYR SQ SCH (07:27)
[2022-06-15] MEDS: LIDOCAINE 5% 1 PATCH TD SCH (07:27)
[2022-06-15] MEDS: DOCUSATE SODIUM/SENNA 50/8.6MG TAB PO SCH (07:27)
[2022-06-15] MEDS: FLUTICASONE/VILANTEROL 200/25MCG 14 PUFFS/INHALER INH SCH (07:28)
[2022-06-15] MEDS: POLYETHYLENE (MIRALAX) 17 GM PACK PO SCH (07:28)
[2022-06-15] MEDS: FLUTICASONE PROPIONATE NA SPR 16 GM BTL SCH (07:28)
[2022-06-15] MEDS: LOPERAMIDE HCL 2 MG CAP PO PRN (07:29)
[2022-06-15] MEDS: cefTRIAXone SODIUM 1,000 MG in DEXTROSE 5% 50 ML IV SCH (10:25)
--- NOTE | 2022-06-15 11:01 | Discharge Summary ---
Date of Service June 15, 2022 Admission HPI Per Admitting Provider History obtained from patient and records. Medical history significant for COPD, hypertension, rheumatoid arthritis on chronic prednisone Rx, chronic pain on narcotics, anxiety disorder, past tobacco abuse. Last confinement September 2020 for nausea, abdominal pain, SBO versus ileus versus SMA syndrome. Increasing weakness at home the last 2 days. Fall resulting in some head trauma. Pleuritic right-sided chest pain. Achy abdominal pain with emesis and UTI symptoms. No fever, no chills. No unusual cough symptoms. Admits to occasional coughing with water/fluid intake which patient attributes to her neck issues. IV ceftriaxone administered upon arrival at the ER. O2 sats 88 at 1 point during ER stay. Medical History as above Surgical History : Cystoscopy, ankle fusion surgery, wrist fusion surgery, cholecystectomy, oophorectomy, SHE Family History : Heart disease, lymphoma, Parkinson's disease Personal/Social history : Past tobacco abuse, no EtOH intake Admission Exam Per Admitting Provider GENERAL: Alert and oriented x3. NAD, on RA. HEENT: No pallor, no icterus. Pupils equal, round and reactive to light. Oral mucosa moist. NECK: No JVD, no neck masses. HEART: S1 and S2 heard. Regular rate and rhythm. No murmur, no gallop. RESPIRATORY SYSTEM: Normal AP diameter. No accessory muscle use. No wheezing, no crackles. ABDOMEN: Soft, bowel sounds present, nontender rlq, no distention. CENTRAL NERVOUS SYSTEM: No facial droop. Speech is clear. Obeys simple comm ands. Moves extremities. EXTREMITIES: No edema, no erythema seen Principal Diagnosis Transient hypoxemia, likely secondary to traumatic right rib fractures secondary to mechanical fall Abdominal pain with RLQ tenderness Likely Mild acute appendicitis Discharge Exam GENERAL: Alert and oriented x3. NAD, on RA. HEENT: No pallor, no icterus. Pupils equal, round and reactive to light. Oral mucosa moist. NECK: No JVD, no neck masses. HEART: S1 and S2 heard. Regular rate and rhythm. No murmur, no gallop. RESPIRATORY SYSTEM: Normal AP diameter. No accessory muscle use. No wheezing, no crackles. ABDOMEN: Soft, bowel sounds present, nontender rlq, no distention. CENTRAL NERVOUS SYSTEM: No facial droop. Speech is clear. Obeys simple commands. Moves extremities. EXTREMITIES: No edema, no erythema seen. Discharge Data Allergies Allergy/AdvReac Type Severity Reaction Status Date / Time No Known Allergies Allergy Unknown Verified 06/10/22 22:49 Consultations 06/10/22 22:20 ED Decision to Admit Stat 06/11/22 01:28 Consult General Surgery Routine 06/13/22 06:16 Consult Gastroenterology Routine Ordered Studies 06/10/22 22:39 CT head/brain wo con Urgent 06/10/22 22:40 CT abd pelvis IV con only Urgent CT angio chest PE protocol Urgent Hospital Course (1) Abdominal pain: Plan 61-year-old lady with PMH of COPD, HTN, rheumatoid arthritis on chronic prednisone treatment, chronic pain on narcotics, anxiety disorder and past tobacco abuse presented to the ED 06/10 with complains of increasing weakness at home since 2 days ago [employer] and fall resulting in some head trauma/pleuritic right-sided chest pain. CTA chest revealed subacute anterior sixth rib fracture; she was transiently hypoxic in the ED but saturated well in room air later. CT abdomen done at admission showed possible mild acute appendicitis; surgery was consulted. She was also started on ceftriaxone and Flagyl. No intervention was planned by surgery and she was recommended to have GI evaluation. Patient had multiple episode of diarrhea; C. difficile was negative. Patient's diarrhea improved with Imodium. GI recommended outpatient endoscopy and colonoscopy; diet was advanced as tolerated. Of note, her urine culture was also positive for E. coli; she was on Rocephin for total of 5 days during the hospitalization. Patient was discharged home in a stable condition with instruction to follow-up with PCP and GI. Total Time Total Time Spent Total Time Spent (In Minutes): 35 Total Time Includes: Examination of the Patient, Discharge Planning, Medication Reconciliation, Communication With Other Providers and Other Discharge Plan Discharge Items Patient Disposition: Home - Home Health Services Reason For Visit: RESP FAILURE Discharge Diagnosis: Transient hypoxemia, likely secondary to traumatic right rib fractures secondary to mechanical fall Underlying COPD Mild acute appendicitis Viral Gastroentertis Activity: Resume your previous activity Non-emergency contact: Primary Care Provider Call non-emergency contact if: you have any medication questions and your symptoms worsen Follow-up/Referrals: Torrie Araya MD [Primary Care Provider] - 06/21/22 1:00 pm (Date & Time 06/21/2022 1:00 PM Provider Torrie Araya MD Department Family Medicine [facility] ) Diet: Regular Addtl Attending Provider Instructions: You were admitted to the hospital with mild appendicitis. You were treated with antibiotics. You were also found to have viral gastroenteritis. Please take Imodium 2 mg every 8 hours as needed for diarrhea. Keep yourself hydrated. Please follow-up with GI for endoscopy/colonoscopy. Lidocaine patch is prescribed to you to be placed on the lower right chest. You are found to have fracture of your sixth rib on the right side. Please follow-up with your primary care doctor Pending Studies at Discharge: No Stand-Alone Forms: [facility] [place] [employer], Smoking Cessation Medications and DC Order Prescriptions: New loperamide 2 mg Capsule 2 mg PO Q8H PRN (Reason: loose stool) Qty: 10 0RF lidocaine 4 % adhesive patch,medicated 1 patch topical DAILY Qty: 10 0RF Rx Instructions: may leave on for up to 12 hrs Continued hydroxyzine HCl 25 mg tablet 25 mg PO Q6H PRN (Reason: Anxiety) latanoprost 0.005 % Drops 1 drp OPB HS morphine 30 mg Tablet Extended Release 30 mg PO Q4H PRN (Reason: Pain) fentanyl 100 mcg/hr Patch 72 Hour 1 patch TRANSDERMAL Q72H Rx Instructions: APPLY Q72HRS TOPICALLY ALONG WITH 75MCG PATCH. dicyclomine 20 mg Tablet 20 mg PO QID PRN (Reason: Abdominal Pain) furosemide 20 mg Tablet 20 mg PO DAILY PRN (Reason: Edema) polyethylene glycol 3350 [Miralax] 17 gram/dose Powder 1 dose PO QAM albuterol sulfate [Ventolin HFA] 90 mcg/actuation Hfa Aerosol Inhaler 2 puff INHALATION Q4H PRN (Reason: Shortness Of Breath) cyanocobalamin (vitamin B-12) [Vitamin B-12] 1,000 mcg Tablet 1,000 mcg PO QAM metoprolol succinate 50 mg tablet extended release 24 hr 50 mg PO DAILY fentanyl 75 mcg/hr patch 72 hour 75 mcg topical Q72H Rx Instructions: USE Q72 HOURS TOPICALLY WITH 100MCG PATCH. fluticasone propion-salmeterol [Wixela Inhub] 250-50 mcg/dose blister with device 1 inh INHALATION BID prednisone 5 mg tablet 5 - 10 mg PO DAILY triamcinolone acetonide 0.1 % ointment 1 applic TOPICAL BID PRN (Reason: .BACK ERUPTION) Rx Instructions: APPLY 2X DAILY ( OR MORE IF ITCHY, INSTEAD OF SCRATCHING) TO BACK ERUPTION WHEN FLARING. ondansetron 8 mg tablet,disintegrating 8 mg translingual Q8H PRN (Reason: Nausea) fluticasone propionate 50 mcg/actuation Amelia,Suspension 2 spray INTRANASAL DAILY Rx Instructions: administer into each nostril Calcium 600 + D(3) 600 mg-5 mcg (200 unit) Capsule 1 cap PO DAILY naloxone 4 mg/actuation Amelia,Non-Aerosol 4 mg INTRANASAL .DAILY/UD PRN (Reason: Opiate Reversal) Discharge Orders: Discharge Order (Routine); Ordered 06/15/22 Ordered By: Pillo Sue Admission Data Admit Date/Time: 06/11/22 01:01 Attending Provider: Pillo Sue Admit Provider: Alvin Allison Primary Care Provider: Torrie Araya Other Providers: Garcia Russo ; Alvin Allison ; Crispin Mendosa ; Noe Elias ; Chad Acosta ; Hector Lund Jr ; Renny Carpenter ; Fletcher Stanley ; Chrissie Wills ; Rock Martino ; Jose Coronado ; Jesu Villela ; Daniel Aguero ; Shonna Woodard ; Oanh Ford ; Dania Clemente ; Sheridan Galindo ; Salimi,Kobi ; Edel Carballo ; Devendra Swann ; Ria Ruiz ; Cornel Casey ; Phil Cadena ; Gaby Liu ; Katlyn Torres ; Eleanor Alexander ; Belkis Whitman ; Rebeka [place] ; Obinna Garcia ; Shahzad Reyes ; Beverley Babin ; Cristy Moreno Jr ; [facility]
== END 2022-06-15 18:20 | disposition home health service (06) | DRG 205 ==
LOC: ED 16:00 → SUATTDRO 06-11 01:01 → 3W 06-11 01:01